=== PATIENT | female | born 1985 | race Caucasian/White ===

== ENCOUNTER → 2016-11-26 | Outpatient (CLI) | payer OTHER ==
[~2016-11-26] MED LIST: AMIT150T PO; BUSP15TA47 PO; CELE-19 PO; CELE10TA PO; CELE20TA OR; CIPR-250 PO; CLAR1TAB2 PO; FLUT11IN INH; FOLI1TAB2 PO; GABA300C3 PO; HYDR10T PO; HYDR1TAB97 PO; HYDR25T PO; IBUP80TA PO; LATU1TAB PO; LEXA1TAB2 PO; LYRI150C PO; MAGN400T2 PO; MINI1CAP PO; MOTR200T40 PO; MULTCAP PO; NICO21DI5 TD; NORCOTAB PO; OCEA0.654; PERCOCET PO; PROT1TAB2 PO; RANI15TA PO; SUMA50TA2 PO; TOPI50TA4 PO; TRIL1TAB PO; TYLE325T5 PO; VITA100T2 PO; ZOFR20TA PO; no meds
--- NOTE | 2016-11-26 21:32 | REP ---
Clinical: Hip pain. Technique: AP view of the pelvis with neutral and frog lateral views of the right and left hip. Findings: Pelvis and bilateral hips appear normal and symmetric, respectively. No significant degenerative changes are appreciated. No overt arthritic changes. No acute fracture dislocation. Impression: Normal age appropriate pelvis and bilateral hip series Signed by Federico Hamlin MD 11/26/2016 09:24 P
== END ==
LOC: M RAD 14:11
PROVIDERS: ATTEND Nurse Practitioner Family
DX: M47.816 Spondylosis without myelopathy or radiculopathy, lumbar region (principal)

== ENCOUNTER → 2016-11-26 | Outpatient (CLI) | payer OTHER ==
--- NOTE | 2016-11-26 21:42 | REP ---
Clinical: Acute shortness of breath . Comparison: 08/28/2014 . Technique: PA and lateral. Findings: The mediastinum and cardiac silhouette are normal. The lung downey are clear and without acute consolidation, effusion, or pneumothorax. The skeletal structures are intact and normal. Impression: 1. No acute cardiopulmonary process. Signed by Federico Hamlin MD 11/26/2016 09:34 P
== END ==
LOC: M RAD 14:16
DX: R06.02 Shortness of breath (principal)

== ENCOUNTER → 2016-12-02 | Outpatient (CLI) | payer OTHER ==
[~2016-12-02] MED LIST changes: +HYDR-3713 PO; -HYDR1TAB97 PO; -MOTR200T40 PO; +MOTR200T44 PO
--- NOTE | 2016-12-17 01:46 | ECWPNPC ---
PATIENT NAME: NATALIE REMY : 1985 GENDER: FEMALE VISIT DATE: 12/02/2016 DISCHARGE DATE: 12/02/16 1138 VISIT LOCKED DATE TIME: PHYSICIAN: MICHAEL UPTON RESOURCE: MICHAEL UPTON REASON FOR APPOINTMENT 1. BACK HISTORY OF PRESENT ILLNESS HISTORY OF PRESENT ILLNESS: PAIN THE PATIENT DESCRIBES THE PAIN... FALL RISK SCREENING: SCREENING :NO FALLS IN THE PAST YEAR TODAY'S VISIT: NOTES: RATES PAIN TODAY 8-9/10. REPORTS PAIN AREAS ARE ACROSS LOW BACK AND INTO BOTH LEGS TO LEVEL OF FEET. DESCRIBES PAIN CONSTANT, SHARP, STABBING, ACHING THROBBING AND SHOOTING. [facility] MENTAL HEALTH PROVIDER INCREASED GABAPENTIN AND ALSO STARTED ON CYMBALTA. HAD NUMBNESS INTO FOOT AND LOWER BACK. . CURRENT MEDICATIONS TAKING RANITIDINE HCL 150 MG CAPSULE 1 CAPSULE ORALLY TWICE A DAY TAKING LATUDA 120 MG TABLET ORALLY DAILY TAKING VENTOLIN HFA 108 (90 BASE) MCG/ACT AEROSOL SOLUTION 2 PUFFS NEEDED INHALATION EVERY 4 HRS TAKING TOPAMAX 100 100MG TABLET ORAL TWICE DAILY TAKING MAXALT 10 MG TABLET 1 TABLET NEEDED ONE TIME ORALLY ONCE A DAY TAKING MOBIC 15 MG TABLET 1 TABLET ORALLY ONCE A DAY PRN FOR PAIN TAKING SOMA 350 MG TABLET 1 TABLET NEEDED ORALLY NEEDED BEFORE BEDTIME FOR SPASMS AND PAIN MDD=1 TAKING GABAPENTIN 800 MG TABLET 1 CAPSULE ORALLY FOUR TIMES A DAY TAKING CYMBALTA 30 MG CAPSULE DELAYED RELEASE PARTICLES 1 CAPSULE ORALLY DAILY NOT-TAKING TRILEPTAL 600 MG TABLET ORALLY TWICE A DAY NOT-TAKING SUMATRIPTAN SUCCINATE 50 MG TABLET 1 TABLET NEEDED ORALLY TWICE A DAY NOT-TAKING CELEXA 10 MG TABLET 1 TABLET ORALLY ONCE A DAY NOT-TAKING BUSPIRONE HCL 30 MG TABLET 1 TABLET ORALLY TWICE A DAY, NOTES: 05/22/16 AT 0100 NOT-TAKING WELLBUTRIN 75 MG TABLET 200 MG ORALLY DAILY NOT-TAKING IBUPROFEN 800 MG TABLET 1 TABLET ORALLY WITH FOOD THREE TIMES A DAY NOT-TAKING OMEPRAZOLE 20 MG CAPSULE DELAYED RELEASE ORALLY ONCE A DAY, NOTES: 05/22/16 AT 0100 NOT-TAKING NAPROSYN 250 MG TABLET 1 TABLET ORALLY TWICE A DAY MEDICATION LIST REVIEWED AND RECONCILED WITH THE PATIENT PAST MEDICAL HISTORY FIBROMYALGIA BIPOLAR HIGH CHOLESTEROL VIT D DEFICIENCY MIGRANE GERD SINUSITIS HEMORRHOIDS ALLERGIES LATEX: HIVESA IV CONTRAST DYE: HIVES: ALLERGY STRAWBERRIES: THROAT CLOSES: ALLERGY PINEAPPLE: THROAT CLOSES: ALLERGY SOCIAL HISTORY GENERAL: TOBACCO USE ARE YOU A:NONSMOKER LEARNING BARRIERS / SPECIAL NEEDS ORIENTED TO PLAN OF CARE: PATIENT, PAIN MANAGEMENT PATIENT, ORIENTED TO PLAN OF CARE: PATIENT, PAIN MANAGEMENT PATIENT. NEW PATIENT PAIN DIARY TODAY'S VISITNOTES FROM 0-10, WHAT LEVEL IS YOUR PAIN TODAY?0 PAIN CLINIC PFS, CLERGY, PUBLIC HEALTH REFERRALS PFS REFERRAL NEEDED?NO CLERGY REFERRAL NEEDED?NO PUBLIC HEALTH REFERRAL NEEDED?NO WAS THE PROVIDER NOTIFIED OF ANY PERTINENT INFO?NO PFS REFERRAL NEEDED?NO CLERGY REFERRAL NEEDED?NO PUBLIC HEALTH REFERRAL NEEDED?NO WAS THE PROVIDER NOTIFIED OF ANY PERTINENT INFO?NO REVIEW OF SYSTEMS CONSTITUTIONAL: ANY CHANGE IN YOUR MEDICAL CONDITION? NO . CHILLS NO . FEVER NO . INFECTION: DO YOU HAVE NEW INFECTIONS? NO . DO YOU HAVE HISTORY OF MRSA? NO . MUSCULOSKELETAL: ANY NEW PATTERNS OF PAIN OR NUMBNESS? YES . GASTROENTEROLOGY: ANY NEW CHANGE IN BOWEL CONTROL? NO . GENITOURINARY: ANY NEW CHANGE IN BLADDER CONTROL? NO . IS THERE A CHANCE YOU COULD BE ? NO . HEMATOLOGY/LYMPH: DO YOU TAKE ANY BLOOD THINNERS? (FOR EXAMPLE- COUMADIN, PLAVIX, AGGRENOX, PLATEL, PRADAXA, OR XARELTO) NO . WHEN WAS YOUR LAST DOSE? DATE: TIME: . NEUROLOGY: HAVE YOU FALLEN IN THE PAST 6 MONTHS? NO . ANY NEW EXTREMITY NUMBNESS OR WEAKNESS? NO . CARDIOLOGY: DO YOU HAVE A PACEMAKER OR DEFIBRILLATOR? NO . RESPIRATORY: HAVE YOU BEEN SICK IN THE PAST WEEK? NO . FEVER NO . FLU LIKE SYMPTOMS? NO . COUGH NO . INTEGUMENTARY: DO YOU HAVE ANY RASHES OR OPEN SORES? NO . ALLERGIC/IMMUNO: ARE YOU ALLERGIC TO SHELLFISH OR IV DYE? NO . ANY NEW ALLERGIES? NO . PSYCHIATRIC: DO YOU HAVE THOUGHTS OF HURTING YOURSELF OR SOMEONE ELSE? NO . ARE YOU ABUSED, NEGLECTED, OR IN AN UNSAFE ENVIRONMENT? NO . ENDOCRINOLOGY: ARE YOU DIABETIC? NO . OTHER: DO YOU NEED ANY PRESCRIPTIONS? NO . IF YES, PLEASE LIST: ____ . ANY NEW PROBLEMS WITH YOUR MEDICATIONS? NO . WHEN DID YOU LAST EAT? ____ . WHEN DID YOU LAST DRINK? ____ . WHAT DID YOU LAST DRINK? ____ . NAME OF PERSON DRIVING YOU HOME? ____ . DO YOU HAVE ANY OTHER QUESTIONS OR CONCERNS NO . REVIEWED BY: PROVIDER: MICHAEL SCHULER . VITAL SIGNS WT 200 LBS, HT 62 IN, BMI 36.58 INDEX, BP 121/68 MM HG, HR 70 /MIN, RR 16 /MIN, TEMP 98 F,2 F, OXYGEN SAT % 98, SAFE IN ENV? (Y/N) Y, REVIEWED BY: KG. EXAMINATION GENERAL EXAMINATION: PSYCHALERT , ORIENTED X 3 , APPROPRIATE MOOD AND AFFECT . LUNGS:CLEAR TO AUSCULTATION BILATERALLY. HEART:HEART RATE REGULAR. MUSCULOSKELETAL:EXQUISITE TENDERNESS OVER RIGHT SIJ. TENDER WITH PALPATION OVER LUMBAR SPINOUS PROCESSES. SLOW TO RISE TO STANDING POSITION. POSTURE UPRIGHT. GAIT SLOW, NONANTALGIC. ASSESSMENTS SACROILIITIS - M46.1 (PRIMARY) LUMBAR RADICULOPATHY - M54.16 TREATMENT SACROILIITIS REFILL GABAPENTIN TABLET, 800 MG, 1 CAPSULE, ORALLY, FOUR TIMES A DAY, 30 DAYS, 120, REFILLS 5 REFILL SOMA TABLET, 350 MG, 1 TABLET NEEDED, ORALLY NEEDED, BEFORE BEDTIME FOR SPASMS AND PAIN MDD=1, 30 DAYS, 30, REFILLS 2 CONTINUE MOBIC TABLET, 15 MG, 1 TABLET, ORALLY, ONCE A DAY PRN FOR PAIN, 30 DAYS, 30, REFILLS 2 INJECTION ANESTHETIC SACROILIAC JOINTMICHAEL UPTON 12/02/2016 11:27:13 AM > RIGHT PROCEDURE CODES FA211 ESTABILISHED PATIENT [facility] CHARGE FOLLOW UP AFTER INJECTION (REASON: CHECK AUTH FOR RIGHT SIJ INJECTION) ELECTRONICALLY SIGNED BY OTTONIEL WADDELL ON 12/16/2016 AT 02:45 PM EST DISCLAIMER : THIS IS A VISIT SUMMARY EXTRACTED FROM THE [employer] CHART. IT IS NOT A COPY OF THE [employer] PROGRESS NOTE. JEREL
== END ==
LOC: M PAIN 10:40
PROVIDERS: ATTEND Nurse Practitioner Family
DX: Z09 Encounter for follow-up examination after completed treatment for conditions other than malignant neoplasm (principal); M46.1 Sacroiliitis, not elsewhere classified; M54.16 Radiculopathy, lumbar region; M79.7 Fibromyalgia; E78.00 Pure hypercholesterolemia, unspecified; E55.9 Vitamin D deficiency, unspecified; G43.909 Migraine, unspecified, not intractable, without status migrainosus; K21.9 Gastro-esophageal reflux disease without esophagitis; F31.9 Bipolar disorder, unspecified; Z91.040 Latex allergy status; Z91.041 Radiographic dye allergy status; Z91.018 Allergy to other foods; Z79.1 Long term (current) use of non-steroidal anti-inflammatories (NSAID); Z79.891 Long term (current) use of opiate analgesic; Z79.899 Other long term (current) drug therapy

== ENCOUNTER → 2016-12-12 | Outpatient (CLI) | payer OTHER ==
[~2016-12-12] MED LIST changes: +BUPIVACAINE HCL 0.25% 30 ML VIAL As Ordered ONE; +LIDOCAINE 1% SDV INJ 30 ML VIAL As Ordered ONE; +TRIAMCINOLONE ACETONIDE SUSP 40 MG/ML VIAL (J3301) As Ordered ONE; +diazePAM 5 MG TAB As Ordered ONE; +oxyCODONE 5MG TAB As Ordered ONE
--- NOTE | 2016-12-12 16:47 | REP ---
SI joint series: Three views limited study: History: Right SI joint injection for pain. 7 seconds of fluoroscopy time is reported. Findings: A sequence of three fluoroscopically obtained intraprocedural spot radiographs of the right SI joint document needle position associated with SI joint injection procedure. Signed by Benjamín Brown MD 12/12/2016 05:04 P
--- NOTE | 2016-12-17 23:41 | ECWPNPC ---
PATIENT NAME: NATALIE REMY : 1985 GENDER: FEMALE VISIT DATE: 12/12/2016 DISCHARGE DATE: 12/12/16 1519 VISIT LOCKED DATE TIME: PHYSICIAN: KELLEY ASIF RESOURCE: KELLEY ASIF REASON FOR APPOINTMENT 1. SIJ HISTORY OF PRESENT ILLNESS HISTORY OF PRESENT ILLNESS: PAIN THE PATIENT DESCRIBES THE PAIN... FALL RISK SCREENING: SCREENING :NO FALLS IN THE PAST YEAR CURRENT MEDICATIONS TAKING RANITIDINE HCL 150 MG CAPSULE 1 CAPSULE ORALLY TWICE A DAY, NOTES: 12-12-16799 TAKING LATUDA 120 MG TABLET ORALLY DAILY, NOTES: 12-11-162099 TAKING VENTOLIN HFA 108 (90 BASE) MCG/ACT AEROSOL SOLUTION 2 PUFFS NEEDED INHALATION EVERY 4 HRS, NOTES: NONE TAKING TOPAMAX 100 100MG TABLET ORAL TWICE DAILY, NOTES: 12-12-16799 TAKING MAXALT 10 MG TABLET 1 TABLET NEEDED ONE TIME ORALLY ONCE A DAY, NOTES: 12-12-16799 TAKING CYMBALTA 30 MG CAPSULE DELAYED RELEASE PARTICLES 1 CAPSULE ORALLY DAILY, NOTES: 12-12-16799 TAKING GABAPENTIN 800 MG TABLET 1 CAPSULE ORALLY FOUR TIMES A DAY, NOTES: 12-12-16799 TAKING SOMA 350 MG TABLET 1 TABLET NEEDED ORALLY NEEDED BEFORE BEDTIME FOR SPASMS AND PAIN MDD=1, NOTES: 12-11-162099 TAKING MOBIC 15 MG TABLET 1 TABLET ORALLY ONCE A DAY PRN FOR PAIN, NOTES: 12-12-16799 TAKING LORATADINE 10 MG TABLET 1 TABLET ORALLY ONCE A DAY, NOTES: 12-11-162099 NOT-TAKING TRILEPTAL 600 MG TABLET ORALLY TWICE A DAY NOT-TAKING SUMATRIPTAN SUCCINATE 50 MG TABLET 1 TABLET NEEDED ORALLY TWICE A DAY NOT-TAKING CELEXA 10 MG TABLET 1 TABLET ORALLY ONCE A DAY NOT-TAKING BUSPIRONE HCL 30 MG TABLET 1 TABLET ORALLY TWICE A DAY, NOTES: 05/22/16 AT 0100 NOT-TAKING WELLBUTRIN 75 MG TABLET 200 MG ORALLY DAILY NOT-TAKING IBUPROFEN 800 MG TABLET 1 TABLET ORALLY WITH FOOD THREE TIMES A DAY NOT-TAKING OMEPRAZOLE 20 MG CAPSULE DELAYED RELEASE ORALLY ONCE A DAY, NOTES: 05/22/16 AT 0100 NOT-TAKING NAPROSYN 250 MG TABLET 1 TABLET ORALLY TWICE A DAY MEDICATION LIST REVIEWED AND RECONCILED WITH THE PATIENT PAST MEDICAL HISTORY FIBROMYALGIA BIPOLAR HIGH CHOLESTEROL VIT D DEFICIENCY MIGRANE GERD SINUSITIS HEMORRHOIDS ALLERGIES LATEX: HIVESA IV CONTRAST DYE: HIVES: ALLERGY STRAWBERRIES: THROAT CLOSES: ALLERGY PINEAPPLE: THROAT CLOSES: ALLERGY SOCIAL HISTORY GENERAL: TOBACCO USE ARE YOU A:NONSMOKER LEARNING BARRIERS / SPECIAL NEEDS ORIENTED TO PLAN OF CARE: PATIENT, PAIN MANAGEMENT PATIENT, ORIENTED TO PLAN OF CARE: PATIENT, PAIN MANAGEMENT PATIENT. NEW PATIENT PAIN DIARY TODAY'S VISITNOTES FROM 0-10, WHAT LEVEL IS YOUR PAIN TODAY?0 PAIN CLINIC PFS, CLERGY, PUBLIC HEALTH REFERRALS PFS REFERRAL NEEDED?NO CLERGY REFERRAL NEEDED?NO PUBLIC HEALTH REFERRAL NEEDED?NO WAS THE PROVIDER NOTIFIED OF ANY PERTINENT INFO?NO PFS REFERRAL NEEDED?NO CLERGY REFERRAL NEEDED?NO PUBLIC HEALTH REFERRAL NEEDED?NO WAS THE PROVIDER NOTIFIED OF ANY PERTINENT INFO?NO REVIEW OF SYSTEMS CONSTITUTIONAL: ANY CHANGE IN YOUR MEDICAL CONDITION? NO . CHILLS NO . FEVER NO . INFECTION: DO YOU HAVE NEW INFECTIONS? NO . DO YOU HAVE HISTORY OF MRSA? NO . MUSCULOSKELETAL: ANY NEW PATTERNS OF PAIN OR NUMBNESS? NO . GASTROENTEROLOGY: ANY NEW CHANGE IN BOWEL CONTROL? NO . GENITOURINARY: ANY NEW CHANGE IN BLADDER CONTROL? NO . IS THERE A CHANCE YOU COULD BE ? NO . HEMATOLOGY/LYMPH: DO YOU TAKE ANY BLOOD THINNERS? (FOR EXAMPLE- COUMADIN, PLAVIX, AGGRENOX, PLATEL, PRADAXA, OR XARELTO) NO . WHEN WAS YOUR LAST DOSE? DATE: TIME: . NEUROLOGY: HAVE YOU FALLEN IN THE PAST 6 MONTHS? NO . ANY NEW EXTREMITY NUMBNESS OR WEAKNESS? NO . CARDIOLOGY: DO YOU HAVE A PACEMAKER OR DEFIBRILLATOR? NO . RESPIRATORY: HAVE YOU BEEN SICK IN THE PAST WEEK? NO . FEVER NO . FLU LIKE SYMPTOMS? NO . COUGH NO . INTEGUMENTARY: DO YOU HAVE ANY RASHES OR OPEN SORES? NO . ALLERGIC/IMMUNO: ARE YOU ALLERGIC TO SHELLFISH OR IV DYE? YES, IV DYE . ANY NEW ALLERGIES? NO . PSYCHIATRIC: DO YOU HAVE THOUGHTS OF HURTING YOURSELF OR SOMEONE ELSE? NO . ARE YOU ABUSED, NEGLECTED, OR IN AN UNSAFE ENVIRONMENT? NO . ENDOCRINOLOGY: ARE YOU DIABETIC? NO . OTHER: DO YOU NEED ANY PRESCRIPTIONS? NO . IF YES, PLEASE LIST: ____ . ANY NEW PROBLEMS WITH YOUR MEDICATIONS? NO . WHEN DID YOU LAST EAT? 12-11-16 PM . WHEN DID YOU LAST DRINK? 12-12-16 0700 . WHAT DID YOU LAST DRINK? SUKH GONSALES . NAME OF PERSON DRIVING YOU HOME? AGUSTIN SPRINGER . DO YOU HAVE ANY OTHER QUESTIONS OR CONCERNS NO . REVIEWED BY: PROVIDER: . VITAL SIGNS WT 190 LBS, HT 62 IN, BMI 34.75 INDEX, BP 122/78 MM HG, HR 69 /MIN, RR 16 /MIN, TEMP 97.7 F, OXYGEN SAT % 98, NA INITIALS TL 1311, REVIEWED BY: CM. ASSESSMENTS SACROILIITIS, NOT ELSEWHERE CLASSIFIED - M46.1 (PRIMARY) PROCEDURES PN SI PRE PROCEDURE DIAGNOSIS SACROILIITIS, SACROILIAC JOINT DYSFUNCTION POST PROCEDURE DIAGNOSIS SACROILIITIS, SACROILIAC JOINT DYSFUNCTION PROCEDURE RIGHT SACROILIAC JOINT BLOCK SURGEON DR. KELLEY ASIF WIND TECHNICIAN NONE ANESTHESIA LOCAL PRE PROCEDURE NOTE PATIENT WITH HISTORY OF CHRONIC LOW BACK PAIN. I EVALUATED THE PATIENT AND REVIEWED THE CHART. I WENT OVER THE RISKS, ALTERNATIVES, AND BENEFITS ASSOCIATED WITH THIS PROCEDURE. THE PATIENT WOULD LIKE TO PROCEED AND GAVE CONSENT TO PERFORM THE PROCEDURE. THE PATIENT DENIES UNEXPLAINABLE WEIGHT LOSS, FEVER, CHILLS, OR NEW CHANGES IN URINARY OR BOWEL CONTROL DESCRIPTION OF PROCEDURE THE PATIENT WAS BROUGHT TO THE PROCEDURE ROOM AND PLACED IN THE PRONE POSITION. THE LUMBOSACRAL AREA WAS CLEANED WITH CHLORAPREP SOLUTION AND DRAPED ASEPTICALLY. THE PROCEDURE WAS DONE UNDER STERILE CONDITIONS. I CHECKED LATERALITY AND THE LEVEL WHERE THE PROCEDURE WAS GOING TO BE PERFORMED WITH THE PATIENT AND THE SUPPORTING STAFF AT THE MOMENT OF THE TIME OUT IN THE PROCEDURE ROOM. UNDER FLUOROSCOPIC GUIDANCE, TARGET POINT WAS SELECTED AT THE LOWER BORDER OF THE RIGHT SACROILIAC JOINT. TARGET POINT WAS SELECTED AFTER MEDIAL ROTATION AND TILT OF THE MAGNIFIER OF THE C-ARM. LIDOCAINE WAS USED TO NUMB THE SKIN AND SUBCUTANEOUS TISSUE BELOW IT. A SPINAL NEEDLE, 22-GAUGE, WAS ADVANCED UNDER FLUOROSCOPIC GUIDANCE AND FOLLOWING PATIENT FEEDBACK UNTIL THE TARGET AREA WAS TOUCHED. THE POSITION OF THE NEEDLE WAS VERIFIED WITH AP AND LATERAL VIEWS. AFTER PROPER POSITION OF THE NEEDLE WAS ACHIEVED, ISOVUE M DYE 30%, 0.25 ML, WAS INJECTED SHOWING SPREAD OF THE DYE. THEN, A SOLUTION OF 20 MG OF KENALOG WAS INJECTED IN RIGHT JOINT WITH 3 ML OF BUPIVACAINE 0.125%. THERE WAS NO EVIDENCE OF BLOOD, PARESTHESIA OR CEREBROSPINAL FLUID DURING THE PROCEDURE. THE PATIENT WAS SENT TO THE RECOVERY ROOM. THE PATIENT WAS MOVING THE EXTREMITIES AND DOING WELL. THERE WAS NO COMPLICATION DURING THE PROCEDURE. FLUOROSCOPY TIME WAS 7 SECONDS POST PROCEDURE NOTE THE PATIENT WILL BE SEEN IN A FOLLOW UP IN THE NEXT FEW WEEKS. INSTRUCTIONS WERE GIVEN, QUESTIONS WERE ANSWERED, AND THE PATIENT EXPRESSED UNDERSTANDING AND AGREED WITH THE PLAN. I, ALDO PIERSON, DOCUMENTED THE ABOVE INFORMATION ACTING A SCRIBE FOR DR. ASIF. I, DR. ASIF, HAVE REVIEWED THE ABOVE DOCUMENT, SCRIBED BY ALDO PIERSON, AND I VERIFY THAT IT IS [facility]NOST[facility] FLUORO GUIDANCE (PAIN)[id number] PROCEDURE CODES 13526 INJECT SACROILIAC JOINT 6045F RADXPS IN END [id number] PXD FOLLOW UP 3 WEEKS ELECTRONICALLY SIGNED BY KELLEY ASIF MD ON 12/17/2016 AT 10:12 PM EST DISCLAIMER : THIS IS A VISIT SUMMARY EXTRACTED FROM THE [employer] CHART. IT IS NOT A COPY OF THE [employer] PROGRESS NOTE. MTDD
== END ==
LOC: M PAIN 13:20
PROVIDERS: ATTEND Anesthesiology
DX: M46.1 Sacroiliitis, not elsewhere classified (principal); G89.29 Other chronic pain; M79.7 Fibromyalgia; Z79.1 Long term (current) use of non-steroidal anti-inflammatories (NSAID); Z79.899 Other long term (current) drug therapy; Z91.018 Allergy to other foods; Z91.041 Radiographic dye allergy status; Z91.040 Latex allergy status
CPT/HCPCS: G0260; J3301

== ENCOUNTER 2016-12-16 20:25 | Emergency (ER) | payer OTHER ==
[~2016-12-16 20:25] MED LIST changes: -BUPIVACAINE HCL 0.25% 30 ML VIAL As Ordered ONE; -LIDOCAINE 1% SDV INJ 30 ML VIAL As Ordered ONE; -TRIAMCINOLONE ACETONIDE SUSP 40 MG/ML VIAL (J3301) As Ordered ONE; -diazePAM 5 MG TAB As Ordered ONE; -oxyCODONE 5MG TAB As Ordered ONE
[2016-12-16] MEDS ORDERED: diazePAM 5 MG TAB As Ordered ONE (22:18)
[2016-12-16] MEDS ORDERED: HYDROmorphone HCL 1 MG/ML SYRINGE (J1170) As Ordered ONE (22:18)
--- NOTE | 2016-12-16 23:03 | EDDOCDS ---
Nurse's Notes [facility] Name: Ashley Rasheed Age: 31 yrs Sex: Female : 1985 Arrival Date: 12/16/2016 Time: 20:25 Bed PR2 / Private MD: Polly Alcantara ANP- Diagnosis: Low back pain-chronic Presentation: 12/16 20:29 Presenting complaint: Patient states: "I had a right SIJ injection on Thursday. Yesterday mb9 I was seen at [place] for the same thing and they gave me a shot of Toradol. I called pain management today and they told me to come here.". Adult Sepsis Screening: The patient does not have new or worsening altered mentation. Patient's respiratory rate is less than 22. Systolic blood pressure is greater than 100. Patient has a qSOFA score of 0- Negative Sepsis Screen. Suicide/Homicide risk assessment- the patient denies having any suicidal and/or homicidal ideations and does not present with any other emotional, behavioral or mental health complaints. 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 Transition of care: patient was not received from another setting of care. 20:29 Acuity: LISE Level 4 mb9 20:29 Method Of Arrival: Walkin/Carried/Asstd mb9 Triage Assessment: 20:35 General: Appears in no apparent distress, Behavior is appropriate for age, cooperative. mb9 Pain: Location: right lower back Pain currently is 9 out of 10 on a pain scale. Pain: Pain radiates to lateral aspect of right thigh. HIV screening NA for this visit Offered previously. Respiratory: Airway is patent Respiratory effort is even, unlabored. 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 gabapentin 800 mg oral tab 1 tab 4 times a day (Last dose: 12/16/2016 18:00) 2. Latuda 120 mg oral tab 1 tab once daily (Last dose: 12/15/2016) 3. ranitidine HCl 150 mg Oral tab 1 tab 2 times per day (Last dose: 12/16/2016) 4. Soma 350 mg oral tab (Last dose: 12/15/2016) 5. Topamax 100 mg Oral tab 1 tab 2 times per day (Last dose: 12/16/2016) 6. Maxalt 10 mg oral tab 1 tab for Migraine (Last dose: 12/16/2016) 7. triliptal 300 mg twice a day (Last dose: 12/16/2016) - PMHx: Migraines; Fibromyalgia; Arthritis; - PSHx: tarsal tunnel surgery; Hysterectomy; - Social history: Smoking status: Patient uses tobacco products, light tobacco smoker. No barriers to communication noted, The patient speaks fluent Chinese. - Family history: Not pertinent. - : The pt / caregiver states he / she is not on anticoagulants. Home medication list is obtained from the patient. - Exposure Risk Screening:: None identified. Screenin:59 Screening information is obtained from the patient. Fall risk: No risks identified. ko2 Assistance ADL's: requires no assistance with activities of daily living. Abuse/DV Screen: The patient / caregiver reports he/she is: not in a situation that causes fear, pain or injury. Nutritional screening: No deficits noted. Advance Directives: Currently, there is no health care proxy. There is no active DNR order. There is no living will. There is no Power of [employer] Commerce Consultant. home support is adequate. Assessment: 22:57 General: Appears in no apparent distress, Behavior is appropriate for age, cooperative. ko2 Pain: Location: right leg and lateral aspect of right thigh and buttocks and right lower back Pain currently is 5 out of 10 on a pain scale. Neurological: Level of Consciousness is awake, alert. Respiratory: Airway is patent Respiratory effort is even, unlabored. Derm: Skin is normal. Vital Signs: 20:26 BP 132 / 78; Pulse 81; Resp 18 S; Temp 97.8(O); Pulse Ox 100% on R/A; Weight 86.18 kg dd6 (R); Height 5 ft. 1 in. (154.94 cm) (R); 20:26 Body Mass Index 35.90 (86.18 kg, 154.94 cm) dd6 Vitals: 20:26 Log In Time: December 16, 2016 at 20:24. dd6 ED Course: 20:26 Patient visited by Lalo Kelley PCA. dd6 20:26 Polly Alcantara is Private Physician. dd6 20:26 Patient moved to Waiting dd6 20:27 Patient moved to Pre RCE dd6 20:31 Triage Initiated mb9 21:05 Patient moved to Triage 2 mdr 21:14 Efra Joe PA-C is PHCP. cc10 21:14 Timothy Freeman MD is Attending Physician. cc10 21:22 Patient visited by Yudith Tolbert RN. ko2 22:07 Patient visited by Efra Joe PA-C. cc10 22:07 Patient visited by Efra Joe PA-C. cc10 22:09 [facility]. cc10 22:12 Patient moved to PR2 / 26 mdr 22:52 [facility] Payment Agreement was scanned into [employer] and attached to record. gb 22:59 The patient / caregiver is instructed regarding the plan of care and ED course. ko2 22:59 No IV's were initiated during this patient's visit. No procedures done that require ko2 assistance. Administered Medications: 22:27 Drug: Dilaudid - HYDROmorphone 1 mg [hydromorphone 1 mg/mL injection syringe (1 mL)] mb9 Route: IM; Site: right gluteus; 22:27 Drug: Diazepam 5 mg [diazepam 5 mg tablet (1 tabs)] Route: PO; mb9 Order Results: There are currently no results for this order. Outcome: 22:09 Discharge ordered by Provider. cc10 22:59 Discharge Assessment: Patient awake, alert and oriented x 3. No cognitive and/or ko2 functional deficits noted. Patient verbalized understanding of disposition instructions. Patient awake and alert. patient administered narcotics - yes. Pt provided with safe discharge. The following High Risk Discharge criteria are identified: None. Discharged to home ambulatory. Condition: stable. Discharge instructions given to patient, Instructed on discharge instructions, follow up and referral plans. medication usage, Demonstrated understanding of instructions, medications, Pt was receptive of discharge instructions/ teaching. No special radiology studies were completed. Property sent home with patient. 23:01 Patient left the ED. ko2 Signatures: Janna Lr, Reg Reg gb Lalo Kelley, MARKETING OPERATIONS ANALYST MARKETING OPERATIONS ANALYST dd6 Efra Joe PA-C PA-C cc10 Yudith Tolbert RN RN ko2 Tam Kirk RN RN mb9 Isaiah Benitez, MARKETING OPERATIONS ANALYST MARKETING OPERATIONS ANALYST mdr MTDD
--- NOTE | 2016-12-16 23:03 | EDDOCDS ---
Physician Documentation [facility] Name: Ashley Rasheed Age: 31 yrs Sex: Female : 1985 Arrival Date: 12/16/2016 Time: 20:25 Bed PR Private MD: Polly Alcantara ANP- Disposition: 12/16/16 22:09 Discharged to Home/Self Care. Impression: Low back pain - chronic. - Condition is Stable. - Discharge Instructions: Chronic Back Pain. - Prescriptions for Valium 5 mg Oral Tablet - take 1 tablet by ORAL route every 8 hours As needed MDD: 3 tabs; 16 tablet. - Medication Reconciliation, Local Pharmacy Hours form. - Follow up: [facility] [place] [facility]; When: Call to arrange an appointment; Reason: Wound/Symptom Recheck, Recheck today's complaints, Continuance of care. - Problem is chronic. - Symptoms have improved. Historical: - Allergies: Latex; mri dye; Pineapples; Strawberries; - Home Meds: 1. gabapentin 800 mg oral tab 1 tab 4 times a day (Last dose: 12/16/2016 18:00) 2. Latuda 120 mg oral tab 1 tab once daily (Last dose: 12/15/2016) 3. ranitidine HCl 150 mg Oral tab 1 tab 2 times per day (Last dose: 12/16/2016) 4. Soma 350 mg oral tab (Last dose: 12/15/2016) 5. Topamax 100 mg Oral tab 1 tab 2 times per day (Last dose: 12/16/2016) 6. Maxalt 10 mg oral tab 1 tab for Migraine (Last dose: 12/16/2016) 7. triliptal 300 mg twice a day (Last dose: 12/16/2016) - PMHx: Migraines; Fibromyalgia; Arthritis; - PSHx: tarsal tunnel surgery; Hysterectomy; - Social history: Smoking status: Patient uses tobacco products, light tobacco smoker. No barriers to communication noted, The patient speaks fluent Thai. - Family history: Not pertinent. - : The pt / caregiver states he / she is not on anticoagulants. Home medication list is obtained from the patient. - Exposure Risk Screening:: None identified. 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 1 in. (154.94 cm) (R); 20:26 Body Mass Index 35.90 (86.18 kg, 154.94 cm) dd6 MDM: 22:08 Dilaudid - HYDROmorphone 1 mg IM once ordered. cc10 22:08 Diazepam 5 mg PO once; disp with patient please. ordered. cc10 22:34 Financial registration complete. gb 22:52 [facility] Payment Agreement was scanned into [employer] and attached to record. gb Administered Medications: 22:27 Drug: Dilaudid - HYDROmorphone 1 mg [hydromorphone 1 mg/mL injection syringe (1 mL)] mb9 Route: IM; Site: right gluteus; 22:27 Drug: Diazepam 5 mg [diazepam 5 mg tablet (1 tabs)] Route: PO; mb9 Signatures: Janna Lr, Reg Reg gb Efra Joe, PA-C PA-C cc10 Yudith Tolbert,RN RN ko2 Tam Kirk,ALE RN mb9 The chart was reviewed and I authenticate all verbal orders and agree with the evaluation and treatment provided.Attachments: 22:52 [facility] Payment Agreement gb MTDD
--- NOTE | 2016-12-19 00:02 | EDDOCDS ---
Nurse's Notes [facility] Name: Ashley Rasheed Age: 31 yrs Sex: Female : 1985 Arrival Date: 12/16/2016 Time: 20:25 Bed PR2 / Private MD: Polly Alcantara ANP- Diagnosis: Low back pain-chronic Presentation: 12/16 20:29 Presenting complaint: Patient states: "I had a right SIJ injection on Thursday. Yesterday mb9 [facility] for the same thing and they gave me a shot of Toradol. I called pain management today and they told me to come here.". Adult Sepsis Screening: The patient does not have new or worsening altered mentation. Patient's respiratory rate is less than 22. Systolic blood pressure is greater than 100. Patient has a qSOFA score of 0- Negative Sepsis Screen. Suicide/Homicide risk assessment- the patient denies having any suicidal and/or homicidal ideations and does not present with any other emotional, behavioral or mental health complaints. Status: Patient is not a service car driver or dependent. Transition of care: patient was not received from another setting of care. 20:29 Acuity: LISE Level 4 mb9 20:29 Method Of Arrival: Walkin/Carried/Asstd mb9 Triage Assessment: 20:35 General: Appears in no apparent distress, Behavior is appropriate for age, cooperative. mb9 Pain: Location: right lower back Pain currently is 9 out of 10 on a pain scale. Pain: Pain radiates to lateral aspect of right thigh. HIV screening NA for this visit Offered previously. Respiratory: Airway is patent Respiratory effort is even, unlabored. 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 gabapentin 800 mg oral tab 1 tab 4 times a day (Last dose: 12/16/2016 18:00) 2. Latuda 120 mg oral tab 1 tab once daily (Last dose: 12/15/2016) 3. ranitidine HCl 150 mg Oral tab 1 tab 2 times per day (Last dose: 12/16/2016) 4. Soma 350 mg oral tab (Last dose: 12/15/2016) 5. Topamax 100 mg Oral tab 1 tab 2 times per day (Last dose: 12/16/2016) 6. Maxalt 10 mg oral tab 1 tab for Migraine (Last dose: 12/16/2016) 7. triliptal 300 mg twice a day (Last dose: 12/16/2016) - PMHx: Migraines; Fibromyalgia; Arthritis; - PSHx: tarsal tunnel surgery; Hysterectomy; - Social history: Smoking status: Patient uses tobacco products, light tobacco smoker. No barriers to communication noted, The patient speaks fluent Turkmen. - Family history: Not pertinent. - : The pt / caregiver states he / she is not on anticoagulants. Home medication list is obtained from the patient. - Exposure Risk Screening:: None identified. Screenin:59 Screening information is obtained from the patient. Fall risk: No risks identified. ko2 Assistance ADL's: requires no assistance with activities of daily living. Abuse/DV Screen: The patient / caregiver reports he/she is: not in a situation that causes fear, pain or injury. Nutritional screening: No deficits noted. Advance Directives: Currently, there is no health care proxy. There is no active DNR order. There is no living will. There is no Power of Payroll Consultant. home support is adequate. Assessment: 22:57 General: Appears in no apparent distress, Behavior is appropriate for age, cooperative. ko2 Pain: Location: right leg and lateral aspect of right thigh and buttocks and right lower back Pain currently is 5 out of 10 on a pain scale. Neurological: Level of Consciousness is awake, alert. Respiratory: Airway is patent Respiratory effort is even, unlabored. Derm: Skin is normal. Vital Signs: 20:26 BP 132 / 78; Pulse 81; Resp 18 S; Temp 97.8(O); Pulse Ox 100% on R/A; Weight 86.18 kg dd6 (R); Height 5 ft. 1 in. (154.94 cm) (R); 20:26 Body Mass Index 35.90 (86.18 kg, 154.94 cm) dd6 Vitals: 20:26 Log In Time: December 16, 2016 at 20:24. dd6 ED Course: 20:26 Patient visited by Lalo Kelley PCA. dd6 20:26 Polly Alcantara is Private Physician. dd6 20:26 Patient moved to Waiting dd6 20:27 Patient moved to Pre RCE dd6 20:31 Triage Initiated mb9 21:05 Patient moved to Triage 2 mdr 21:14 Efra Joe PA-C is PHCP. cc10 21:14 Timothy Freeman MD is Attending Physician. cc10 21:22 Patient visited by Yudith Tolbert RN. ko2 22:07 Patient visited by Efra Joe PA-C. cc10 22:07 Patient visited by Efra Joe PA-C. cc10 22:09 [facility]. cc10 22:12 Patient moved to PR2 / 26 mdr 22:52 [facility] Payment Agreement was scanned into EventBoard and attached to record. gb 22:59 The patient / caregiver is instructed regarding the plan of care and ED course. ko2 22:59 No IV's were initiated during this patient's visit. No procedures done that require ko2 assistance. 12/17 02:27 T-Sheet-- Draft Copy was scanned into EventBoard and attached to record. hs2 Administered Medications: 12/16 22:27 Drug: Dilaudid - HYDROmorphone 1 mg [hydromorphone 1 mg/mL injection syringe (1 mL)] mb9 Route: IM; Site: right gluteus; 22:27 Drug: Diazepam 5 mg [diazepam 5 mg tablet (1 tabs)] Route: PO; mb9 Order Results: There are currently no results for this order. Outcome: 22:09 Discharge ordered by Provider. cc10 22:59 Discharge Assessment: Patient awake, alert and oriented x 3. No cognitive and/or ko2 functional deficits noted. Patient verbalized understanding of disposition instructions. Patient awake and alert. patient administered narcotics - yes. Pt provided with safe discharge. The following High Risk Discharge criteria are identified: None. Discharged to home ambulatory. Condition: stable. Discharge instructions given to patient, Instructed on discharge instructions, follow up and referral plans. medication usage, Demonstrated understanding of instructions, medications, Pt was receptive of discharge instructions/ teaching. No special radiology studies were completed. Property sent home with patient. 23:01 Patient left the ED. ko2 Signatures: Janna Lr, Reg Reg gb Lalo Kelley, SHIFT SUPERINTENDENT CAUSTIC CRESYLATE SHIFT SUPERINTENDENT CAUSTIC CRESYLATE dd6 Efra Joe PA-C PA-C cc10 Yudith Tolbert,RN RN ko2 Tam Kirk,RN RN mb9 Isaiah Benitez, SHIFT SUPERINTENDENT CAUSTIC CRESYLATE SHIFT SUPERINTENDENT CAUSTIC CRESYLATE mdr Alondra Fu, Reg Reg hs2 Chart Complete MTDD
--- NOTE | 2016-12-19 00:02 | EDDOCDS ---
Physician Documentation [facility] Name: Ashley Rasheed Age: 31 yrs Sex: Female : 1985 Arrival Date: 12/16/2016 Time: 20:25 Bed PR Private MD: Polly Alcantara ANP- Disposition: 12/16/16 22:09 Discharged to Home/Self Care. Impression: Low back pain - chronic. - Condition is Stable. - Discharge Instructions: Chronic Back Pain. - Prescriptions for Valium 5 mg Oral Tablet - take 1 tablet by ORAL route every 8 hours As needed MDD: 3 tabs; 16 tablet. - Medication Reconciliation, Local Pharmacy Hours form. - Follow up: [facility] [place] [facility]; When: Call to arrange an appointment; Reason: Wound/Symptom Recheck, Recheck today's complaints, Continuance of care. - Problem is chronic. - Symptoms have improved. Historical: - Allergies: Latex; mri dye; Pineapples; Strawberries; - Home Meds: 1. gabapentin 800 mg oral tab 1 tab 4 times a day (Last dose: 12/16/2016 18:00) 2. Latuda 120 mg oral tab 1 tab once daily (Last dose: 12/15/2016) 3. ranitidine HCl 150 mg Oral tab 1 tab 2 times per day (Last dose: 12/16/2016) 4. Soma 350 mg oral tab (Last dose: 12/15/2016) 5. Topamax 100 mg Oral tab 1 tab 2 times per day (Last dose: 12/16/2016) 6. Maxalt 10 mg oral tab 1 tab for Migraine (Last dose: 12/16/2016) 7. triliptal 300 mg twice a day (Last dose: 12/16/2016) - PMHx: Migraines; Fibromyalgia; Arthritis; - PSHx: tarsal tunnel surgery; Hysterectomy; - Social history: Smoking status: Patient uses tobacco products, light tobacco smoker. No barriers to communication noted, The patient speaks fluent Yoruba. - Family history: Not pertinent. - : The pt / caregiver states he / she is not on anticoagulants. Home medication list is obtained from the patient. - Exposure Risk Screening:: None identified. 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 1 in. (154.94 cm) (R); 20:26 Body Mass Index 35.90 (86.18 kg, 154.94 cm) dd6 MDM: 22:08 Dilaudid - HYDROmorphone 1 mg IM once ordered. cc10 22:08 Diazepam 5 mg PO once; disp with patient please. ordered. cc10 22:34 Financial registration complete. 22:52 [facility] Payment Agreement was scanned into [email or web address] and attached to record. gb 12/17 02:27 T-Sheet-- Draft Copy was scanned into [email or web address] and attached to record. hs2 Administered Medications: 12/16 22:27 Drug: Dilaudid - HYDROmorphone 1 mg [hydromorphone 1 mg/mL injection syringe (1 mL)] mb9 Route: IM; Site: right gluteus; 22:27 Drug: Diazepam 5 mg [diazepam 5 mg tablet (1 tabs)] Route: PO; mb9 Signatures: Janna Lr, Reg Reg gb Efra Joe PA-C PANadeenC cc10 Yudith Tolbert RN RN ko2 Tam Kirk RN RN mb9 Alondra Fu, Reg Reg hs2 The chart was reviewed and I authenticate all verbal orders and agree with the evaluation and treatment provided.Attachments: 22:52 [facility] Payment Agreement gb 12/17 02:27 T-Sheet-- Draft Copy hs2 Chart Complete MTDD
--- NOTE | 2016-12-19 00:02 | EDDOCDS ---
Physician Documentation [facility] Name: Ashley Rasheed Age: 31 yrs Sex: Female : 1985 Arrival Date: 12/16/2016 Time: 20:25 Bed PR Private MD: Polly Alcantara ANP- Disposition: 12/16/16 22:09 Discharged to Home/Self Care. Impression: Low back pain - chronic. - Condition is Stable. - Discharge Instructions: Chronic Back Pain. - Prescriptions for Valium 5 mg Oral Tablet - take 1 tablet by ORAL route every 8 hours As needed MDD: 3 tabs; 16 tablet. - Medication Reconciliation, Local Pharmacy Hours form. - Follow up: [facility], [place] [facility]; When: Call to arrange an appointment; Reason: Wound/Symptom Recheck, Recheck today's complaints, Continuance of care. - Problem is chronic. - Symptoms have improved. Historical: - Allergies: Latex; mri dye; Pineapples; Strawberries; - Home Meds: 1. gabapentin 800 mg oral tab 1 tab 4 times a day (Last dose: 12/16/2016 18:00) 2. Latuda 120 mg oral tab 1 tab once daily (Last dose: 12/15/2016) 3. ranitidine HCl 150 mg Oral tab 1 tab 2 times per day (Last dose: 12/16/2016) 4. Soma 350 mg oral tab (Last dose: 12/15/2016) 5. Topamax 100 mg Oral tab 1 tab 2 times per day (Last dose: 12/16/2016) 6. Maxalt 10 mg oral tab 1 tab for Migraine (Last dose: 12/16/2016) 7. triliptal 300 mg twice a day (Last dose: 12/16/2016) - PMHx: Migraines; Fibromyalgia; Arthritis; - PSHx: tarsal tunnel surgery; Hysterectomy; - Social history: Smoking status: Patient uses tobacco products, light tobacco smoker. No barriers to communication noted, The patient speaks fluent Icelandic. - Family history: Not pertinent. - : The pt / caregiver states he / she is not on anticoagulants. Home medication list is obtained from the patient. - Exposure Risk Screening:: None identified. 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 1 in. (154.94 cm) (R); 20:26 Body Mass Index 35.90 (86.18 kg, 154.94 cm) dd6 MDM: 22:08 Dilaudid - HYDROmorphone 1 mg IM once ordered. cc10 22:08 Diazepam 5 mg PO once; disp with patient please. ordered. cc10 22:34 Financial registration complete. 22:52 [facility] Payment Agreement was scanned into [email or web address] and attached to record. gb 12/17 02:27 T-Sheet-- Draft Copy was scanned into [email or web address] and attached to record. hs2 Administered Medications: 12/16 22:27 Drug: Dilaudid - HYDROmorphone 1 mg [hydromorphone 1 mg/mL injection syringe (1 mL)] mb9 Route: IM; Site: right gluteus; 22:27 Drug: Diazepam 5 mg [diazepam 5 mg tablet (1 tabs)] Route: PO; mb9 Signatures: Janna Lr, Reg Reg gb Efra Joe PA-C PANadeenC cc10 Yudith Tolbert RN RN ko2 Tam Kirk RN RN mb9 Alondra Fu, Reg Reg hs2 The chart was reviewed and I authenticate all verbal orders and agree with the evaluation and treatment provided.Attachments: 22:52 [facility] Payment Agreement gb 12/17 02:27 T-Sheet-- Draft Copy hs2 Chart Complete MTDD
== END 2016-12-16 23:01 | disposition home or self-care (01) ==
LOC: M ED 20:25
DX: M54.5 Low back pain (principal); G43.909 Migraine, unspecified, not intractable, without status migrainosus; M79.7 Fibromyalgia; M12.9 Arthropathy, unspecified; F17.210 Nicotine dependence, cigarettes, uncomplicated; Z79.899 Other long term (current) drug therapy; Z91.041 Radiographic dye allergy status; Z91.040 Latex allergy status; Z91.018 Allergy to other foods
CPT/HCPCS: 96372; 99283; J1170

== ENCOUNTER → 2016-12-23 | Outpatient (RCR) | payer OTHER | LOC: M PT 11-26 12:55 | PROVIDERS: ATTEND Nurse Practitioner Family | DX: Z51.89 Encounter for other specified aftercare (principal); M72.2 Plantar fascial fibromatosis ==

== ENCOUNTER → 2016-12-25 | Outpatient (CLI) | payer OTHER ==
--- NOTE | 2016-12-26 23:55 | ECWPNPC ---
PATIENT NAME: NATALIE REMY : 1985 GENDER: FEMALE VISIT DATE: 12/25/2016 DISCHARGE DATE: 12/25/16 1036 VISIT LOCKED DATE TIME: PHYSICIAN: MICHAEL UPTON RESOURCE: MICHAEL UPTON REASON FOR APPOINTMENT 1. BACK PAIN HISTORY OF PRESENT ILLNESS HISTORY OF PRESENT ILLNESS: PAIN THE PATIENT DESCRIBES THE PAIN... FALL RISK SCREENING: SCREENING :NO FALLS IN THE PAST YEAR TODAY'S VISIT: NOTES: IS S/P RIGHT SIJ 12/12/16. REPORTS HAD NO PAIN RELIEF. WENT TO [place] ER WHERE WAS GIVEN TORADOL, THEN WENT TO [facility] ER WHERE THEY GAVE HER DILAUDID AND VALIUM.IS HAVING HAVING INCREASED PAIN AND SPASM INTO BACKS OF LEGS = WORST PAIN IN LEG IS ON RIGHT SIDE. HAS NOT NOTED ANY FOCAL WEAKNESS. NO LOSS OF BOWEL OR BLADDER. WAS SEEN AT ORTHOPEDICS - IS TO HAVE EMG ON RIGHT LE. RATES PAIN TODAY 9/10 AND STATES IS NOT ABLE TO FIND A COMFORTABLE POSITION. CURRENT MEDICATIONS TAKING RANITIDINE HCL 150 MG CAPSULE 1 CAPSULE ORALLY TWICE A DAY, NOTES: 12-12-16799 TAKING LATUDA 120 MG TABLET ORALLY DAILY, NOTES: 12-11-162099 TAKING VENTOLIN HFA 108 (90 BASE) MCG/ACT AEROSOL SOLUTION 2 PUFFS NEEDED INHALATION EVERY 4 HRS, NOTES: NONE TAKING TOPAMAX 100 100MG TABLET ORAL TWICE DAILY, NOTES: 12-12-16799 TAKING MAXALT 10 MG TABLET 1 TABLET NEEDED ONE TIME ORALLY ONCE A DAY, NOTES: 12-12-16799 TAKING CYMBALTA 30 MG CAPSULE DELAYED RELEASE PARTICLES 1 CAPSULE ORALLY DAILY, NOTES: 12-12-16799 TAKING GABAPENTIN 800 MG TABLET 1 CAPSULE ORALLY FOUR TIMES A DAY, NOTES: 12-12-16799 TAKING SOMA 350 MG TABLET 1 TABLET NEEDED ORALLY NEEDED BEFORE BEDTIME FOR SPASMS AND PAIN MDD=1, NOTES: 12-11-162099 TAKING MOBIC 15 MG TABLET 1 TABLET ORALLY ONCE A DAY PRN FOR PAIN, NOTES: 12-12-16799 TAKING LORATADINE 10 MG TABLET 1 TABLET ORALLY ONCE A DAY, NOTES: 12-11-162099 TAKING VALIUM 5 MG TABLET 1 TABLET NEEDED ORALLY 3X/DAY NEEDED TAKING INDERAL 20 MG 10MG TAB PO BID NOT-TAKING TRILEPTAL 600 MG TABLET ORALLY TWICE A DAY NOT-TAKING SUMATRIPTAN SUCCINATE 50 MG TABLET 1 TABLET NEEDED ORALLY TWICE A DAY NOT-TAKING CELEXA 10 MG TABLET 1 TABLET ORALLY ONCE A DAY NOT-TAKING BUSPIRONE HCL 30 MG TABLET 1 TABLET ORALLY TWICE A DAY, NOTES: 05/22/16 AT 0100 NOT-TAKING WELLBUTRIN 75 MG TABLET 200 MG ORALLY DAILY NOT-TAKING IBUPROFEN 800 MG TABLET 1 TABLET ORALLY WITH FOOD THREE TIMES A DAY NOT-TAKING OMEPRAZOLE 20 MG CAPSULE DELAYED RELEASE ORALLY ONCE A DAY, NOTES: 05/22/16 AT 0100 NOT-TAKING NAPROSYN 250 MG TABLET 1 TABLET ORALLY TWICE A DAY MEDICATION LIST REVIEWED AND RECONCILED WITH THE PATIENT PAST MEDICAL HISTORY FIBROMYALGIA BIPOLAR HIGH CHOLESTEROL VIT D DEFICIENCY MIGRANE GERD SINUSITIS HEMORRHOIDS ALLERGIES LATEX: HIVESA IV CONTRAST DYE: HIVES: ALLERGY STRAWBERRIES: THROAT CLOSES: ALLERGY PINEAPPLE: THROAT CLOSES: ALLERGY SOCIAL HISTORY GENERAL: TOBACCO USE ARE YOU A:NONSMOKER LEARNING BARRIERS / SPECIAL NEEDS ORIENTED TO PLAN OF CARE: PATIENT, PAIN MANAGEMENT PATIENT, ORIENTED TO PLAN OF CARE: PATIENT, PAIN MANAGEMENT PATIENT. NEW PATIENT PAIN DIARY TODAY'S VISITNOTES FROM 0-10, WHAT LEVEL IS YOUR PAIN TODAY?0 PAIN CLINIC PFS, CLERGY, PUBLIC HEALTH REFERRALS PFS REFERRAL NEEDED?NO CLERGY REFERRAL NEEDED?NO PUBLIC HEALTH REFERRAL NEEDED?NO WAS THE PROVIDER NOTIFIED OF ANY PERTINENT INFO?NO PFS REFERRAL NEEDED?NO CLERGY REFERRAL NEEDED?NO PUBLIC HEALTH REFERRAL NEEDED?NO WAS THE PROVIDER NOTIFIED OF ANY PERTINENT INFO?NO REVIEW OF SYSTEMS CONSTITUTIONAL: ANY CHANGE IN YOUR MEDICAL CONDITION? NO . CHILLS NO . FEVER NO . INFECTION: DO YOU HAVE NEW INFECTIONS? NO . DO YOU HAVE HISTORY OF MRSA? NO . MUSCULOSKELETAL: ANY NEW PATTERNS OF PAIN OR NUMBNESS? NO . GASTROENTEROLOGY: ANY NEW CHANGE IN BOWEL CONTROL? NO . GENITOURINARY: ANY NEW CHANGE IN BLADDER CONTROL? NO . IS THERE A CHANCE YOU COULD BE ? NO . HEMATOLOGY/LYMPH: DO YOU TAKE ANY BLOOD THINNERS? (FOR EXAMPLE- COUMADIN, PLAVIX, AGGRENOX, PLATEL, PRADAXA, OR XARELTO) NO . WHEN WAS YOUR LAST DOSE? DATE: TIME: . NEUROLOGY: HAVE YOU FALLEN IN THE PAST 6 MONTHS? NO . ANY NEW EXTREMITY NUMBNESS OR WEAKNESS? NO . CARDIOLOGY: DO YOU HAVE A PACEMAKER OR DEFIBRILLATOR? NO . RESPIRATORY: HAVE YOU BEEN SICK IN THE PAST WEEK? NO . FEVER NO . FLU LIKE SYMPTOMS? NO . COUGH NO . INTEGUMENTARY: DO YOU HAVE ANY RASHES OR OPEN SORES? NO . ALLERGIC/IMMUNO: ARE YOU ALLERGIC TO SHELLFISH OR IV DYE? YES CT DYE . ANY NEW ALLERGIES? NO . PSYCHIATRIC: DO YOU HAVE THOUGHTS OF HURTING YOURSELF OR SOMEONE ELSE? NO . ARE YOU ABUSED, NEGLECTED, OR IN AN UNSAFE ENVIRONMENT? NO . ENDOCRINOLOGY: ARE YOU DIABETIC? NO . OTHER: DO YOU NEED ANY PRESCRIPTIONS? NO . IF YES, PLEASE LIST: ____ . ANY NEW PROBLEMS WITH YOUR MEDICATIONS? NO . WHEN DID YOU LAST EAT? ____ . WHEN DID YOU LAST DRINK? ____ . WHAT DID YOU LAST DRINK? ____ . NAME OF PERSON DRIVING YOU HOME? ____ . DO YOU HAVE ANY OTHER QUESTIONS OR CONCERNS YES &QUOT;SINCE SHOTS THE PAIN WORSE-WENT TO ER&QUOT; RECEIVED VALIUM AND A SHOT THAT SEEMED TO EASE PAIN PER PT. STATES RIGHT LOWER BACK AND RIGHT HIP PAIN IS WORSE SINCE INJECTION 12/12. WAS SEEN AT [facility] ER AND STATES RECEIVED TORADOL. PAIN PERSISTED AND PT CALLED [facility]-INSTRUCTED TO GO TO [facility] ER. RECEIVED HYDROMORPHONE IM AND VALIUM PO.RECEIVED SCRIPT FOR VALIUM WHICH IS NOW GONE. STATES VALIUM DIMINISHED PAIN. . PSYCHOLOGY: ARE YOU RECEIVING COUNSELING? FOLLOWS CLOSELY WITH HER COUNSELOR AND PSYCHIATRIST . REVIEWED BY: PROVIDER: MICHAEL UPTON GREY GOODS TESTER . VITAL SIGNS WT 190 LBS, HT 62 IN, BMI 34.75 INDEX, BP 148/89 MM HG, HR 96 /MIN, RR 16 /MIN, TEMP 97.3 F, OXYGEN SAT % 99, NA INITIALS MP, REVIEWED BY: MLF. EXAMINATION GENERAL EXAMINATION: PSYCHALERT , ORIENTED X 3 , APPROPRIATE MOOD AND AFFECT . LUNGS:CLEAR TO AUSCULTATION BILATERALLY. HEART:HEART RATE REGULAR. MUSCULOSKELETAL:EXQUISITE TENDERNESS OVER RIGHT SIJ. TENDER WITH PALPATION OVER LUMBAR SPINOUS PROCESSES. SLOW TO RISE TO STANDING POSITION. POSTURE UPRIGHT. GAIT SLOW, NONANTALGIC. ASSESSMENTS SACROILIITIS - M46.1 (PRIMARY) LUMBAR RADICULOPATHY - M54.16 TREATMENT SACROILIITIS REFILL VALIUM TABLET, 5 MG, 1 TABLET NEEDED, ORALLY, 3X/DAY NEEDED, 30 DAYS, 30, REFILLS 0 START TIZANIDINE HCL TABLET, 4 MG, 1 TABLET NEEDED, ORALLY, THREE TIMES A DAY, 30 DAY(S), 90 TABLET, REFILLS 0 START PERCOCET TABLET, 5-325 MG, 1 TABLET NEEDED, ORALLY, EVERY 8 HRS PRN PAIN MDD=3, 30 DAY(S), 30, REFILLS 0 NOTES: WALK SHORT DISTANCES EVERY DAY. ALTERNATE ICE/HEAT TO LOW BACK. USE MEDS SPARINGLY. CONTINUE PHYSICAL THERAPY. CLINICAL NOTES: ISTOP REGISTRY REVIEWED AND DEMNOSTRATES COMPLLIANCE. BRINGS IN MEDICATIONS WHICH IS APPROPRIATE FOR WHAT WAS DISPENSED. RECENT URINE TOXICOLOGY REVIEWED. NO UNAUTHORIZED MEDICATIONS. NO ILLICIT SUBSTANCES AND PRESCRIBED MEDICATIONS WERE PRESENT. , REVIEWED WITH PATIENT THE POTENTIAL RISK OF INCREASED SEDATION, RESPIRATORY SUPPRESSION AND WITH THE COMBINATION OF BENZODIAZAPINE AND OPIOD MEDICATIONS. PATIENT STATES HE UNDERSTANDS THIS RISK AND WISHES TO CONTINUE WITH THERAPY. PROCEDURE CODES FA211 ESTABILISHED PATIENT [facility] CHARGE FOLLOW UP 3-4 WEEKS ELECTRONICALLY SIGNED BY OTTONIEL WADDLEL ON 12/26/2016 AT 02:20 PM EST DISCLAIMER : THIS IS A VISIT SUMMARY EXTRACTED FROM THE [employer] CHART. IT IS NOT A COPY OF THE [employer] PROGRESS NOTE. JEREL
== END ==
LOC: M PAIN 09:40
PROVIDERS: ATTEND Nurse Practitioner Family
DX: M46.1 Sacroiliitis, not elsewhere classified (principal); M54.16 Radiculopathy, lumbar region; M79.7 Fibromyalgia; F31.9 Bipolar disorder, unspecified; G43.909 Migraine, unspecified, not intractable, without status migrainosus; E55.9 Vitamin D deficiency, unspecified; Z79.899 Other long term (current) drug therapy; Z91.040 Latex allergy status; Z91.041 Radiographic dye allergy status; Z91.018 Allergy to other foods

== ENCOUNTER 2017-01-01 20:57 | Emergency (ER) | payer OTHER ==
[2017-01-01] MEDS ORDERED: METOCLOPRAMIDE INJ 10MG/2ML VIAL (J2765) As Ordered ONE (22:58)
[2017-01-01] MEDS ORDERED: dexameTHASONE 4 MG/ML 1ML VIAL (J1100) As Ordered ONE (22:58)
[2017-01-01] MEDS ORDERED: diphenhydrAMINE INJ 50MG/ML VIAL (J1200) As Ordered ONE (22:58)
[2017-01-01 23:23] LABS: CONTROL LINE HCG INT CTR LINE PRESENT
[2017-01-01 23:37] LABS: T UPTAKE 33 % (30-39); THYROXINE (T4) 11.9 UG/DL (4.5-12.0)
[2017-01-02] MEDS ORDERED: KETOROLAC 30 MG/ML VIAL (J1885) As Ordered ONE (00:18)
--- NOTE | 2017-01-02 01:13 | EDDOCDS ---
Physician Documentation [facility] Name: Ashley Rasheed Age: 31 yrs Sex: Female : 1985 Arrival Date: 01/01/2017 Time: 20:57 Bed TR7 Private MD: GRACE JAVED Disposition: 01/02/17 00:52 Discharged to Home/Self Care. Impression: Migraine, Galactorrhea. - Condition is Stable. - Discharge Instructions: Galactorrhea, Migraine Headache. - Medication Reconciliation, Local Pharmacy Hours form. - Follow up: GRACE JAVED; When: 1 - 2 days; Reason: Recheck today's complaints, Continuance of care. - Problem is new. - Symptoms have improved. - Notes: PLEASE FOLLOW UP WITH YOUR DOCTOR, RETURN TO THE ER IF THE SYMPTOMS WORSEN OR BECOME CONCERNING Historical: - Allergies: Latex; mri dye; Pineapples; Strawberries; - Home Meds: 1. gabapentin 800 mg Oral tab 1 tab 4 times a day 2. Latuda 120 mg oral tab 1 tab once daily 3. Maxalt 10 mg oral tab 1 tab for Migraine 4. ranitidine HCl 150 mg Oral tab 1 tab 2 times per day 5. Soma 350 mg Oral tab 6. Topamax 100 mg Oral tab 1 tab 2 times per day 7. triliptal 300 mg twice a day 8. Valium 5 mg Oral tab 3 times per day - PMHx: Arthritis; Fibromyalgia; Migraines; - PSHx: tarsal tunnel surgery; Hysterectomy; - Social history: Smoking status: Patient uses tobacco products, heavy tobacco smoker. No barriers to communication noted, The patient speaks fluent Indonesian. - Family history: Not pertinent. - : The pt / caregiver states he / she is not on anticoagulants. Home medication list is obtained from the patient. - Exposure Risk Screening:: None identified. 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 2 in. (157.48 cm); 01/02 00:37 Pain 7/10; kmg1 01:06 BP 110 / 77; Pulse 63; Resp 16; Temp 97.7; cz 01/01 20:59 Body Mass Index 36.58 (90.72 kg, 157.48 cm) elp MDM: 01/01 22:32 Metoclopramide 10 mg IV at 40 mg/hr once over 15 mins ordered. ck7 22:32 diphenhydrAMINE 50 mg IVP once ordered. ck7 22:32 Dexamethasone 8 mg IV at bolus once ordered. ck7 22:32 IV Saline Lock ordered. ck7 22:32 NS 0.9% 1000 ml IV at bolus once ordered. ck7 22:33 Thyroid Profile Ordered. EDMS 22:33 HCG,Serum Qualitative Ordered. EDMS 23:03 PROLACTIN Ordered. EDMS 23:15 Financial registration complete. pm4 23:27 HCG,Serum Qualitative Reviewed. ck7 23:28 [facility] Payment Agreement was scanned into [email or web address] and attached to record. pm4 23:42 Thyroid Profile Reviewed. ck7 23:42 HCG,Serum Qualitative Reviewed. ck7 23:53 ketorolac 30 mg IVP once ordered. ck7 Administered Medications: 23:05 Drug: Metoclopramide 10 mg [metoclopramide 5 mg/mL injection solution] Route: IV; Rate: cf2 40 mg/hr; Infused Over: 15 mins; Site: left antecubital; 01/02 01:07 Follow up: IV Status: Completed infusion cz 01/01 23:05 Drug: diphenhydrAMINE 50 mg [diphenhydramine 50 mg/mL injection solution (1 mL)] Route: cf2 IVP; Site: left antecubital; 23:05 Drug: Dexamethasone 8 mg [dexamethasone 4 mg/mL injection solution] Route: IV; Rate: cf2 bolus; Site: left antecubital; 23:06 Drug: NS 0.9% 1000 ml [sodium chloride 0.9 % intravenous solution] Route: IV; Rate: cf2 bolus; Site: left antecubital; 01/02 00:38 Follow up: IV Status: Completed infusion [facility] 01:06 Follow up: IV Status: Completed infusion cz 00:20 Drug: ketorolac 30 mg [ketorolac 30 mg/mL (1 mL) injection solution (1 mL)] Route: IVP; cf2 Site: left antecubital; 00:37 Follow up: Pain 06/01 Adult; Response: Pain is decreased kmg1 Signatures: Dispatcher [employer] EDMS Reji Silva, RN RN cz Yashira Mason RN RN rs3 Daniel Benson, RPA-C RPA-[id number] Vanesa ChinoRN RN cf2 Samir Millan, Reg Reg pm4 Pam Oneill RN kmg1 The chart was reviewed and I authenticate all verbal orders and agree with the evaluation and treatment provided.Corrections: (The following items were deleted from the chart) 01/01 23:03 22:33 PROLAC+LAB ordered. EDMS EDMS Attachments: 23:28 [facility] Payment Agreement pm4 MTDD
--- NOTE | 2017-01-02 01:13 | EDDOCDS ---
Nurse's Notes [facility] Name: Ashley Rasheed Age: 31 yrs Sex: Female : 1985 Arrival Date: 01/01/2017 Time: 20:57 Bed TR7 Private MD: GRACE JAVED Diagnosis: Migraine;Galactorrhea Presentation: 01/01 21:13 Presenting complaint: Patient states: bilateral breast tenderness and nipple discharge rs3 since yesterday. denies redness/swelling. migraine headache for 4 days. nausea/vomiting present. no fever. had partial hysterectomy 2014. This patient has no additional risk factors. Adult Sepsis Screening: The patient does not have new or worsening altered mentation. Patient's respiratory rate is less than 22. Systolic blood pressure is greater than 100. Patient has a qSOFA score of 0- Negative Sepsis Screen. Suicide/Homicide risk assessment- the patient denies having any suicidal and/or homicidal ideations and does not present with any other emotional, behavioral or mental health complaints. Status: Patient is not a sales service representative or dependent. Transition of care: patient was not received from another setting of care. 21:13 Acuity: LISE Level 3 rs3 21:13 Method Of Arrival: Walkin/Carried/Asstd rs3 Triage Assessment: 21:19 Headache History: This patient has a history of headaches and the character of this rs3 headache is like all previous headaches. General: Appears in no apparent distress. Pain: Pain currently is 9 out of 10 on a pain scale. Pain began gradually Also complains of nausea. HIV screening NA for this visit Offered previously. Neurological: Level of Consciousness is awake, alert. 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 gabapentin 800 mg Oral tab 1 tab 4 times a day 2. Latuda 120 mg oral tab 1 tab once daily 3. Maxalt 10 mg oral tab 1 tab for Migraine 4. ranitidine HCl 150 mg Oral tab 1 tab 2 times per day 5. Soma 350 mg Oral tab 6. Topamax 100 mg Oral tab 1 tab 2 times per day 7. triliptal 300 mg twice a day 8. Valium 5 mg Oral tab 3 times per day - PMHx: Arthritis; Fibromyalgia; Migraines; - PSHx: tarsal tunnel surgery; Hysterectomy; - Social history: Smoking status: Patient uses tobacco products, heavy tobacco smoker. No barriers to communication noted, The patient speaks fluent Sinhala. - Family history: Not pertinent. - : The pt / caregiver states he / she is not on anticoagulants. Home medication list is obtained from the patient. - Exposure Risk Screening:: None identified. Assessment: 23:07 General: Appears uncomfortable, Behavior is appropriate for age, cooperative, pleasant. kmg1 General: Patient reports breast pain bilaterally and describes what appears to be milky discharge. On exam breasts were soft, without nodules, and tender toward the sternum bilaterally. No milky discharge was appreciated. Pain: Location: head, right breast and left breast. Neurological: Level of Consciousness is awake, alert, Oriented to person, place, time, Reports headache. Vital Signs: 20:59 BP 134 / 92; Pulse 82; Resp 18; Temp 98.5; Pulse Ox 99% ; Weight 90.72 kg; Height 5 ft. elp 2 in. (157.48 cm); 01/02 00:37 Pain 7/10; kmg1 01:06 BP 110 / 77; Pulse 63; Resp 16; Temp 97.7; cz 02 20:59 Body Mass Index 36.58 (90.72 kg, 157.48 cm) el Vitals: 01/01 20:59 Log In Time: January 01, 2017 at 20:57. [facility] ED Course: 20:58 Patient visited by Concepción Gurrola PCA. elp 20:58 Patient moved to Waiting elp 20:59 GRACE JAVED is Private Physician. elp 20:59 Patient visited by Concepción Gurrola PCA. elp 20:59 Patient moved to Pre RCE elp 21:17 Triage Initiated rs3 21:53 Patient moved to Triage 1 cz 22:09 [facility] ck7 22:09 Eloy Acosta DO is Attending Physician. ck7 22:10 Patient visited by Daniel Benson RPA-C. ck7 22:25 Patient moved to I4 / M4 mdr 22:30 Vanesa Chino,ALE is Primary Nurse. cf2 22:30 Patient visited by Vanesa Chino RN. cf2 23:02 Thyroid Profile Sent. cf2 23:02 HCG,Serum Qualitative Sent. cf2 23:05 Patient visited by Vanesa Chino RN. cf2 23:06 Inserted saline lock: 20 gauge in right antecubital area. Labs drawn. (by ED staff). kmg1 Sent per order to lab. 23:12 Patient visited by Vanesa Chino RN. cf2 23:28 [facility] Payment Agreement was scanned into [employer] and attached to record. pm4 23:43 Patient visited by Vanesa Chino RN. cf2 01/02 00:16 Patient visited by Vanesa Chino RN. cf2 00:51 Patient visited by Daniel Benson RPA-C. ck7 00:51 GRACE JAVED is Referral Physician. ck7 01:09 Patient moved to [facility] Administered Medications: 01/01 23:05 Drug: Metoclopramide 10 mg [metoclopramide 5 mg/mL injection solution] Route: IV; Rate: cf2 40 mg/hr; Infused Over: 15 mins; Site: left antecubital; 01/02 01:07 Follow up: IV Status: Completed infusion cz 01/01 23:05 Drug: diphenhydrAMINE 50 mg [diphenhydramine 50 mg/mL injection solution (1 mL)] Route: cf2 IVP; Site: left antecubital; 23:05 Drug: Dexamethasone 8 mg [dexamethasone 4 mg/mL injection solution] Route: IV; Rate: cf2 bolus; Site: left antecubital; 23:06 Drug: NS 0.9% 1000 ml [sodium chloride 0.9 % intravenous solution] Route: IV; Rate: cf2 bolus; Site: left antecubital; 01/02 00:38 Follow up: IV Status: Completed infusion kmg1 01:06 Follow up: IV Status: Completed infusion cz 00:20 Drug: ketorolac 30 mg [ketorolac 30 mg/mL (1 mL) injection solution (1 mL)] Route: IVP; cf2 Site: left antecubital; 00:37 Follow up: Pain 06/01 Adult; Response: Pain is decreased kmg1 Order Results: Lab Order: Thyroid Profile; SPEC'M 01/01/17 22:59 Test: T UPTAKE; Value: 33; Range: 30-39; Units: %; Status: F Test: THYROXINE (T4); Value: 11.9; Range: 4.5-12.0; Units: UG/DL; Status: F Test: FREE THYROXINE INDEX; Value: 3.9; Range: 1.3-4.8; Units: %; Status: F Test: THYROID STIMULATING HORMONE; Value: 1.860; Range: 0.358-3.740; Units: uIU/ML; Status: F Lab Order: HCG,Serum Qualitative; SPEC'M 01/01/17 22:59 Test: HCG, SERUM QUALITATIVE; Value: NEGATIVE; Range: NEGATIVE; Status: F Lab Order: PROLACTIN; SPEC'M 01/01/17 22:59 Test: PROLACTIN; Units: NG/ML; Status: I Outcome: 00:52 Discharge ordered by Provider. ck7 01:07 Discharge Assessment: Patient awake, alert and oriented x 3. No cognitive and/or cz functional deficits noted. Patient verbalized understanding of disposition instructions. patient administered narcotics - no. The following High Risk Discharge criteria are identified: None. Discharged to home ambulatory, with significant other. Condition: stable. Discharge instructions given to patient, Instructed on discharge instructions, follow up and referral plans. Demonstrated understanding of instructions, Pt was receptive of discharge instructions/ teaching. No special radiology studies were completed. Property :Personal belongings accompany Pt. 01:12 Patient left the ED. cz Signatures: Pam Oneill, RN RN km Reji Silva RN RN cz Soosairaj, RosemaryRN RN rs3 Daniel Benson, RPA-C RPA-Cck7 Concepción Gurrola, SPARERIBS TRIMMER SPARERIBS TRIMMER ceferinop Isaiah Benitez, SPARERIBS TRIMMER SPARERIBS TRIMMER Vanesa Shelton,RN RN cf2 Samir Millan, Reg Reg pm4 Corrections: (The following items were deleted from the chart) 01/01 23:03 23:02 PROLAC+LAB sent. cf2 EDMS 23:13 23:07 General: Appears uncomfortable, Behavior is appropriate for age, cooperative, kmg1 pleasant, cf2 23:13 23:07 Pain: Location: head, right breast and left breast 2 km 23:13 23:07 Neurological: Level of Consciousness is awake, alert, Oriented to person, place, kmg1 time, Reports headache cf2 23:13 23:07 General: Patient reports breast pain bilaterally and describes what appears to be km milky discharge. On exam breasts were soft, without nodules, and tender toward the sternum bilaterally. No milky discharge was appreciated. 2 : 23:06 Inserted saline lock: 20 gauge in right antecubital area 2 [facility] [place] 23: 23:06 Labs drawn. (by ED staff). Sent per [place] to lab. [place] [id number] MTDD
[2017-01-02 09:36] LABS: PROLACTIN 21.2 NG/ML
--- NOTE | 2017-01-04 02:13 | EDDOCDS ---
Physician Documentation [facility] Name: Ashley Rasheed Age: 31 yrs Sex: Female : 1985 Arrival Date: 01/01/2017 Time: 20:57 Bed TR7 Private MD: GRACE JAVED Disposition: 01/02/17 00:52 Discharged to Home/Self Care. Impression: Migraine, Galactorrhea. - Condition is Stable. - Discharge Instructions: Galactorrhea, Migraine Headache. - Medication Reconciliation, Local Pharmacy Hours form. - Follow up: GRACE JAVED; When: 1 - 2 days; Reason: Recheck today's complaints, Continuance of care. - Problem is new. - Symptoms have improved. - Notes: PLEASE FOLLOW UP WITH YOUR DOCTOR, RETURN TO THE ER IF THE SYMPTOMS WORSEN OR BECOME CONCERNING Historical: - Allergies: Latex; mri dye; Pineapples; Strawberries; - Home Meds: 1. gabapentin 800 mg Oral tab 1 tab 4 times a day 2. Latuda 120 mg oral tab 1 tab once daily 3. Maxalt 10 mg oral tab 1 tab for Migraine 4. ranitidine HCl 150 mg Oral tab 1 tab 2 times per day 5. Soma 350 mg Oral tab 6. Topamax 100 mg Oral tab 1 tab 2 times per day 7. triliptal 300 mg twice a day 8. Valium 5 mg Oral tab 3 times per day - PMHx: Arthritis; Fibromyalgia; Migraines; - PSHx: tarsal tunnel surgery; Hysterectomy; - Social history: Smoking status: Patient uses tobacco products, heavy tobacco smoker. No barriers to communication noted, The patient speaks fluent Belarusian. - Family history: Not pertinent. - : The pt / caregiver states he / she is not on anticoagulants. Home medication list is obtained from the patient. - Exposure Risk Screening:: None identified. 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 2 in. (157.48 cm); 01/02 00:37 Pain 7/10; kmg1 01:06 BP 110 / 77; Pulse 63; Resp 16; Temp 97.7; cz 01/01 20:59 Body Mass Index 36.58 (90.72 kg, 157.48 cm) elp MDM: 01/01 22:32 Metoclopramide 10 mg IV at 40 mg/hr once over 15 mins ordered. ck7 22:32 diphenhydrAMINE 50 mg IVP once ordered. ck7 22:32 Dexamethasone 8 mg IV at bolus once ordered. ck7 22:32 IV Saline Lock ordered. ck7 22:32 NS 0.9% 1000 ml IV at bolus once ordered. ck7 22:33 Thyroid Profile Ordered. EDMS 22:33 HCG,Serum Qualitative Ordered. EDMS 23:03 PROLACTIN Ordered. EDMS 23:15 Financial registration complete. pm4 23:27 HCG,Serum Qualitative Reviewed. ck7 23:28 [facility] was scanned into [employer] and attached to record. pm4 23:42 Thyroid Profile Reviewed. ck7 23:42 HCG,Serum Qualitative Reviewed. ck7 23:53 ketorolac 30 mg IVP once ordered. ck7 01/02 12:33 T-Sheet-- Draft Copy was scanned into [employer] and attached to record. gb Administered Medications: 01/01 23:05 Drug: Metoclopramide 10 mg [metoclopramide 5 mg/mL injection solution] Route: IV; Rate: cf2 40 mg/hr; Infused Over: 15 mins; Site: left antecubital; 01/02 01:07 Follow up: IV Status: Completed infusion cz 01/01 23:05 Drug: diphenhydrAMINE 50 mg [diphenhydramine 50 mg/mL injection solution (1 mL)] Route: cf2 IVP; Site: left antecubital; 23:05 Drug: Dexamethasone 8 mg [dexamethasone 4 mg/mL injection solution] Route: IV; Rate: cf2 bolus; Site: left antecubital; 23:06 Drug: NS 0.9% 1000 ml [sodium chloride 0.9 % intravenous solution] Route: IV; Rate: cf2 bolus; Site: left antecubital; 01/02 00:38 Follow up: IV Status: Completed infusion km 01:06 Follow up: IV Status: Completed infusion cz 00:20 Drug: ketorolac 30 mg [ketorolac 30 mg/mL (1 mL) injection solution (1 mL)] Route: IVP; cf2 Site: left antecubital; 00:37 Follow up: Pain 06/01 Adult; Response: Pain is decreased kmg1 Signatures: Dispatcher [employer] EDMS Reji Silva, RN RN cz Janna Lr, Reg Reg gb Yashira Mason RN RN rs3 Daniel Benson, ANURADHA-C RPA-Cck7 Vanesa Chino RN RN cf2 Samir Millan, Reg Reg pm4 Pam Oneill RN kmg1 The chart was reviewed and I authenticate all verbal orders and agree with the evaluation and treatment provided.Corrections: (The following items were deleted from the chart) 01/01 23:03 22:33 PROLAC+LAB ordered. EDMS EDMS Attachments: 23:28 [facility] [place] pm4 01/02 12:33 T-Sheet-- Draft Copy gb Chart Complete MTDD
--- NOTE | 2017-01-04 02:13 | EDDOCDS ---
Physician Documentation [facility] Name: Ashley Rasheed Age: 31 yrs Sex: Female : 1985 Arrival Date: 01/01/2017 Time: 20:57 Bed TR7 Private MD: GRACE JAVED Disposition: 01/02/17 00:52 Discharged to Home/Self Care. Impression: Migraine, Galactorrhea. - Condition is Stable. - Discharge Instructions: Galactorrhea, Migraine Headache. - Medication Reconciliation, Local Pharmacy Hours form. - Follow up: GRACE JAVED; When: 1 - 2 days; Reason: Recheck today's complaints, Continuance of care. - Problem is new. - Symptoms have improved. - Notes: PLEASE FOLLOW UP WITH YOUR DOCTOR, RETURN TO THE ER IF THE SYMPTOMS WORSEN OR BECOME CONCERNING Historical: - Allergies: Latex; mri dye; Pineapples; Strawberries; - Home Meds: 1. gabapentin 800 mg Oral tab 1 tab 4 times a day 2. Latuda 120 mg oral tab 1 tab once daily 3. Maxalt 10 mg oral tab 1 tab for Migraine 4. ranitidine HCl 150 mg Oral tab 1 tab 2 times per day 5. Soma 350 mg Oral tab 6. Topamax 100 mg Oral tab 1 tab 2 times per day 7. triliptal 300 mg twice a day 8. Valium 5 mg Oral tab 3 times per day - PMHx: Arthritis; Fibromyalgia; Migraines; - PSHx: tarsal tunnel surgery; Hysterectomy; - Social history: Smoking status: Patient uses tobacco products, heavy tobacco smoker. No barriers to communication noted, The patient speaks fluent Macedonian. - Family history: Not pertinent. - : The pt / caregiver states he / she is not on anticoagulants. Home medication list is obtained from the patient. - Exposure Risk Screening:: None identified. 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 2 in. (157.48 cm); 01/02 00:37 Pain 7/10; kmg1 01:06 BP 110 / 77; Pulse 63; Resp 16; Temp 97.7; cz 01/01 20:59 Body Mass Index 36.58 (90.72 kg, 157.48 cm) elp MDM: 01/01 22:32 Metoclopramide 10 mg IV at 40 mg/hr once over 15 mins ordered. ck7 22:32 diphenhydrAMINE 50 mg IVP once ordered. ck7 22:32 Dexamethasone 8 mg IV at bolus once ordered. ck7 22:32 IV Saline Lock ordered. ck7 22:32 NS 0.9% 1000 ml IV at bolus once ordered. ck7 22:33 Thyroid Profile Ordered. EDMS 22:33 HCG,Serum Qualitative Ordered. EDMS 23:03 PROLACTIN Ordered. EDMS 23:15 Financial registration complete. pm4 23:27 HCG,Serum Qualitative Reviewed. ck7 23:28 [facility] [place] Payment Agreement was scanned into [employer] and attached to record. pm4 23:42 Thyroid Profile Reviewed. ck7 23:42 HCG,Serum Qualitative Reviewed. ck7 23:53 ketorolac 30 mg IVP once ordered. ck7 01/02 12:33 T-Sheet-- Draft Copy was scanned into [employer] and attached to record. gb Administered Medications: 01/01 23:05 Drug: Metoclopramide 10 mg [metoclopramide 5 mg/mL injection solution] Route: IV; Rate: cf2 40 mg/hr; Infused Over: 15 mins; Site: left antecubital; 01/02 01:07 Follow up: IV Status: Completed infusion cz 01/01 23:05 Drug: diphenhydrAMINE 50 mg [diphenhydramine 50 mg/mL injection solution (1 mL)] Route: cf2 IVP; Site: left antecubital; 23:05 Drug: Dexamethasone 8 mg [dexamethasone 4 mg/mL injection solution] Route: IV; Rate: cf2 bolus; Site: left antecubital; 23:06 Drug: NS 0.9% 1000 ml [sodium chloride 0.9 % intravenous solution] Route: IV; Rate: cf2 bolus; Site: left antecubital; 01/02 00:38 Follow up: IV Status: Completed infusion km 01:06 Follow up: IV Status: Completed infusion cz 00:20 Drug: ketorolac 30 mg [ketorolac 30 mg/mL (1 mL) injection solution (1 mL)] Route: IVP; cf2 Site: left antecubital; 00:37 Follow up: Pain 06/01 Adult; Response: Pain is decreased kmg1 Signatures: Dispatcher [employer] EDMS Reji Silva, RN RN cz Janna Lr, Reg Reg gb Yashira Mason RN RN rs3 Daniel Benson, ANURADHA-C RPA-Cck7 Vanesa Chino RN RN cf2 Samir Millan, Reg Reg pm4 Pam Oneill RN kmg1 The chart was reviewed and I authenticate all verbal orders and agree with the evaluation and treatment provided.Corrections: (The following items were deleted from the chart) 01/01 23:03 22:33 PROLAC+LAB ordered. EDMS EDMS Attachments: 23:28 [facility] [place] Payment Agreement pm4 01/02 12:33 T-Sheet-- Draft Copy gb Chart Complete MTDD
--- NOTE | 2017-01-04 02:13 | EDDOCDS ---
Nurse's Notes [facility] Name: Ashley Rasheed Age: 31 yrs Sex: Female : 1985 Arrival Date: 01/01/2017 Time: 20:57 Bed TR7 Private MD: GRACE JAVED Diagnosis: Migraine;Galactorrhea Presentation: 01/01 21:13 Presenting complaint: Patient states: bilateral breast tenderness and nipple discharge rs3 since yesterday. denies redness/swelling. migraine headache for 4 days. nausea/vomiting present. no fever. had partial hysterectomy 2014. This patient has no additional risk factors. Adult Sepsis Screening: The patient does not have new or worsening altered mentation. Patient's respiratory rate is less than 22. Systolic blood pressure is greater than 100. Patient has a qSOFA score of 0- Negative Sepsis Screen. Suicide/Homicide risk assessment- the patient denies having any suicidal and/or homicidal ideations and does not present with any other emotional, behavioral or mental health complaints. Status: Patient is not a employment services director or dependent. Transition of care: patient was not received from another setting of care. 21:13 Acuity: LISE Level 3 rs3 21:13 Method Of Arrival: Walkin/Carried/Asstd rs3 Triage Assessment: 21:19 Headache History: This patient has a history of headaches and the character of this rs3 headache is like all previous headaches. General: Appears in no apparent distress. Pain: Pain currently is 9 out of 10 on a pain scale. Pain began gradually Also complains of nausea. HIV screening NA for this visit Offered previously. Neurological: Level of Consciousness is awake, alert. 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 gabapentin 800 mg Oral tab 1 tab 4 times a day 2. Latuda 120 mg oral tab 1 tab once daily 3. Maxalt 10 mg oral tab 1 tab for Migraine 4. ranitidine HCl 150 mg Oral tab 1 tab 2 times per day 5. Soma 350 mg Oral tab 6. Topamax 100 mg Oral tab 1 tab 2 times per day 7. triliptal 300 mg twice a day 8. Valium 5 mg Oral tab 3 times per day - PMHx: Arthritis; Fibromyalgia; Migraines; - PSHx: tarsal tunnel surgery; Hysterectomy; - Social history: Smoking status: Patient uses tobacco products, heavy tobacco smoker. No barriers to communication noted, The patient speaks fluent Icelandic. - Family history: Not pertinent. - : The pt / caregiver states he / she is not on anticoagulants. Home medication list is obtained from the patient. - Exposure Risk Screening:: None identified. Assessment: 23:07 General: Appears uncomfortable, Behavior is appropriate for age, cooperative, pleasant. kmg1 General: Patient reports breast pain bilaterally and describes what appears to be milky discharge. On exam breasts were soft, without nodules, and tender toward the sternum bilaterally. No milky discharge was appreciated. Pain: Location: head, right breast and left breast. Neurological: Level of Consciousness is awake, alert, Oriented to person, place, time, Reports headache. Vital Signs: 20:59 BP 134 / 92; Pulse 82; Resp 18; Temp 98.5; Pulse Ox 99% ; Weight 90.72 kg; Height 5 ft. elp 2 in. (157.48 cm); 01/02 00:37 Pain 7/10; kmg1 01:06 BP 110 / 77; Pulse 63; Resp 16; Temp 97.7; cz 02 20:59 Body Mass Index 36.58 (90.72 kg, 157.48 cm) el Vitals: 01/01 20:59 Log In Time: January 01, 2017 at 20:57. [facility] ED Course: 20:58 Patient visited by Concepción Gurrola PCA. elp 20:58 Patient moved to Waiting elp 20:59 GRACE JAVED is Private Physician. elp 20:59 Patient visited by Concepción Gurrola PCA. elp 20:59 Patient moved to Pre RCE elp 21:17 Triage Initiated rs3 21:53 Patient moved to Triage 1 cz 22:09 Daniel Benson [facility]-C [facility] ck7 22:09 Eloy Acosta DO is Attending Physician. ck7 22:10 Patient visited by Daniel Benson RPA-C. ck7 22:25 Patient moved to I4 / M4 mdr 22:30 Vanesa Chino,ALE is Primary Nurse. cf2 22:30 Patient visited by Vanesa Chino RN. cf2 23:02 Thyroid Profile Sent. cf2 23:02 HCG,Serum Qualitative Sent. cf2 23:05 Patient visited by Vanesa Chino RN. cf2 23:06 Inserted saline lock: 20 gauge in right antecubital area. Labs drawn. (by ED staff). kmg1 Sent per order to lab. 23:12 Patient visited by Vanesa Chino RN. cf2 23:28 [facility] Payment Agreement was scanned into [employer] and attached to record. pm4 23:43 Patient visited by Vanesa Chino RN. cf2 01/02 00:16 Patient visited by Vanesa Chino RN. cf2 00:51 Patient visited by Daniel Benson RPA-C. ck7 00:51 GRACE JAVED is Referral Physician. ck7 01:09 Patient moved to [facility] 12:33 T-Sheet-- Draft Copy was scanned into [employer] and attached to record. gb Administered Medications: 01/01 23:05 Drug: Metoclopramide 10 mg [metoclopramide 5 mg/mL injection solution] Route: IV; Rate: cf2 40 mg/hr; Infused Over: 15 mins; Site: left antecubital; 01/02 01:07 Follow up: IV Status: Completed infusion cz 01/01 23:05 Drug: diphenhydrAMINE 50 mg [diphenhydramine 50 mg/mL injection solution (1 mL)] Route: cf2 IVP; Site: left antecubital; 23:05 Drug: Dexamethasone 8 mg [dexamethasone 4 mg/mL injection solution] Route: IV; Rate: cf2 bolus; Site: left antecubital; 23:06 Drug: NS 0.9% 1000 ml [sodium chloride 0.9 % intravenous solution] Route: IV; Rate: cf2 bolus; Site: left antecubital; 01/02 00:38 Follow up: IV Status: Completed infusion kmg1 01:06 Follow up: IV Status: Completed infusion cz 00:20 Drug: ketorolac 30 mg [ketorolac 30 mg/mL (1 mL) injection solution (1 mL)] Route: IVP; cf2 Site: left antecubital; 00:37 Follow up: Pain 06/01 Adult; Response: Pain is decreased kmg1 Order Results: Lab Order: Thyroid Profile; SPEC'M 01/01/17 22:59 Test: T UPTAKE; Value: 33; Range: 30-39; Units: %; Status: F Test: THYROXINE (T4); Value: 11.9; Range: 4.5-12.0; Units: UG/DL; Status: F Test: FREE THYROXINE INDEX; Value: 3.9; Range: 1.3-4.8; Units: %; Status: F Test: THYROID STIMULATING HORMONE; Value: 1.860; Range: 0.358-3.740; Units: uIU/ML; Status: F Lab Order: HCG,Serum Qualitative; SPEC'M 01/01/17 22:59 Test: HCG, SERUM QUALITATIVE; Value: NEGATIVE; Range: NEGATIVE; Status: F Lab Order: PROLACTIN; SPEC'M 01/01/17 22:59 Test: PROLACTIN; Value: 21.2; Units: NG/ML; Status: F Test Note: ; Non-: 2.8 - 29.2 ng/mL : 9.7 - 208.5 ng/mL Post Menopausal: 1.8 - 20.3 ng/mL Outcome: 00:52 Discharge ordered by Provider. ck7 01:07 Discharge Assessment: Patient awake, alert and oriented x 3. No cognitive and/or cz functional deficits noted. Patient verbalized understanding of disposition instructions. patient administered narcotics - no. The following High Risk Discharge criteria are identified: None. Discharged to home ambulatory, with significant other. Condition: stable. Discharge instructions given to patient, Instructed on discharge instructions, follow up and referral plans. Demonstrated understanding of instructions, Pt was receptive of discharge instructions/ teaching. No special radiology studies were completed. Property :Personal belongings accompany Pt. 01:12 Patient left the ED. cz Signatures: Pam Oneill, RN RN kmg1 Reji Silva RN RN cz Janna Lr, Reg Reg gb Yashira Mason RN RN rs3 Daniel Benson, RPA-C [id number] Concepción Gurrola, SUPERVISOR [employer] SUPERVISOR [employer] elp Isaiah Benitez, SUPERVISOR [employer] SUPERVISOR [employer] mdr Vanesa Chino,ALE RN cf2 Samir Millan, Reg Reg pm4 Corrections: (The following items were deleted from the chart) 01/01 23:03 23:02 PROLAC+LAB sent. 2 EDVA : 23:07 General: Appears uncomfortable, Behavior is appropriate for age, cooperative, kmg1 pleasant, [facility] 23:07 Pain: Location: head, right breast and left breast [place] [id number] : 23:07 Neurological: Level of Consciousness is awake, alert, Oriented to person, place, kmg1 time, Reports headache [facility] : 23:07 General: Patient reports breast pain bilaterally and describes what appears to be kmg1 milky discharge. On exam breasts were soft, without nodules, and tender toward the sternum bilaterally. No milky discharge was appreciated. [facility] : 23:06 Inserted saline lock: 20 gauge in right antecubital area [place] [id number] : 23:06 Labs drawn. (by ED staff). Sent per order to lab. [place] [id number] Chart Complete MTDD
== END 2017-01-02 01:12 | disposition home or self-care (01) ==
LOC: M ED 20:57
DX: G43.909 Migraine, unspecified, not intractable, without status migrainosus (principal); N64.3 Galactorrhea not associated with childbirth; M19.90 Unspecified osteoarthritis, unspecified site; M79.7 Fibromyalgia; Z79.899 Other long term (current) drug therapy; Z79.891 Long term (current) use of opiate analgesic; Z91.040 Latex allergy status; Z91.041 Radiographic dye allergy status; Z91.018 Allergy to other foods; F17.210 Nicotine dependence, cigarettes, uncomplicated
CPT/HCPCS: 36415; 84146; 84436; 84443; 84479; 84703; 96365; 96366; 96375; 99283; J1100; J1200; J1885; J2765

== ENCOUNTER → 2017-01-20 | Outpatient (CLI) | payer OTHER ==
[~2017-01-20] MED LIST changes: +METHACHOLINE KIT (J7674) INH ONE
--- NOTE | 2017-01-21 14:24 | METHCHAL ---
INTERPRETATION: The study was of excellent technical quality. Under protocol, methacholine was administered. At a dose of 2.5 mg (13.875 CDUs), a 52% decline in the FEV1 was noted. The PC20 of 0.30 is significant Flow rates returned to baseline post bronchodilator administration. IMPRESSION: Positive methacholine challenge study. MTDD
== END ==
LOC: M CARPUL 01-06 11:00
PROVIDERS: ATTEND Nurse Practitioner Adult Health
DX: R06.02 Shortness of breath (principal); R05 Cough

== ENCOUNTER → 2017-01-21 | Outpatient (CLI) | payer OTHER ==
[~2017-01-21] MED LIST changes: -METHACHOLINE KIT (J7674) INH ONE
--- NOTE | 2017-01-21 23:52 | ECWPNPC ---
PATIENT NAME: NATALIE ERMY : 1985 GENDER: FEMALE VISIT DATE: 01/21/2017 DISCHARGE DATE: 01/21/17 1135 VISIT LOCKED DATE TIME: PHYSICIAN: MICHAEL UPTON RESOURCE: MICHAEL UPTON REASON FOR APPOINTMENT 1. LOW BACK HISTORY OF PRESENT ILLNESS HISTORY OF PRESENT ILLNESS: PAIN THE PATIENT DESCRIBES THE PAIN... FALL RISK SCREENING: SCREENING :NO FALLS IN THE PAST YEAR TODAY'S VISIT: NOTES: RATES PAIN TODAY 7-8/10. DESCRIBES PAIN CONSTANT, ACHING AND THROBBING. PAIN IN CENTERED IN LOW BACK RIGHT SIDE. DOES RADIATE TO LEGS WHEN LAYING DOWN. HAVING INTENSE NUMBNESS LATERAL PORTION RIGHT FOOT.. CURRENT MEDICATIONS TAKING RANITIDINE HCL 150 MG CAPSULE 1 CAPSULE ORALLY TWICE A DAY TAKING LATUDA 80 MG TABLET ORALLY DAILY TAKING VENTOLIN HFA 108 (90 BASE) MCG/ACT AEROSOL SOLUTION 2 PUFFS NEEDED INHALATION EVERY 4 HRS TAKING TOPAMAX 100 100MG TABLET ORAL TWICE DAILY TAKING MAXALT 10 MG TABLET 1 TABLET NEEDED ONE TIME ORALLY ONCE A DAY TAKING GABAPENTIN 800 MG TABLET 1 CAPSULE ORALLY FOUR TIMES A DAY TAKING LORATADINE 10 MG TABLET 1 TABLET ORALLY ONCE A DAY TAKING INDERAL 20 MG 10MG TAB PO BID TAKING VALIUM 5 MG TABLET 1 TABLET NEEDED ORALLY 3X/DAY NEEDED TAKING TIZANIDINE HCL 4 MG TABLET 1 TABLET NEEDED ORALLY THREE TIMES A DAY TAKING PERCOCET 5-325 MG TABLET 1 TABLET NEEDED ORALLY EVERY 8 HRS PRN PAIN MDD=3 TAKING AMITRIPTYLINE HCL 10 MG TABLET 1 TABLET ORALLY THREE TIMES A DAY TAKING NAPROXEN 500 MG TABLET 1 TABLET NEEDED ORALLY TWICE A DAY NOT-TAKING CYMBALTA 30 MG CAPSULE DELAYED RELEASE PARTICLES 1 CAPSULE ORALLY DAILY, NOTES: 12-12-16 0800 NOT-TAKING SOMA 350 MG TABLET 1 TABLET NEEDED ORALLY NEEDED BEFORE BEDTIME FOR SPASMS AND PAIN MDD=1, NOTES: 12-11-16 2100 NOT-TAKING MOBIC 15 MG TABLET 1 TABLET ORALLY ONCE A DAY PRN FOR PAIN NOT-TAKING TRILEPTAL 600 MG TABLET ORALLY TWICE A DAY NOT-TAKING SUMATRIPTAN SUCCINATE 50 MG TABLET 1 TABLET NEEDED ORALLY TWICE A DAY NOT-TAKING CELEXA 10 MG TABLET 1 TABLET ORALLY ONCE A DAY NOT-TAKING BUSPIRONE HCL 30 MG TABLET 1 TABLET ORALLY TWICE A DAY, NOTES: 05/22/16 AT 0100 NOT-TAKING WELLBUTRIN 75 MG TABLET 200 MG ORALLY DAILY NOT-TAKING IBUPROFEN 800 MG TABLET 1 TABLET ORALLY WITH FOOD THREE TIMES A DAY NOT-TAKING OMEPRAZOLE 20 MG CAPSULE DELAYED RELEASE ORALLY ONCE A DAY, NOTES: 05/22/16 AT 0100 NOT-TAKING NAPROSYN 250 MG TABLET 1 TABLET ORALLY TWICE A DAY MEDICATION LIST REVIEWED AND RECONCILED WITH THE PATIENT PAST MEDICAL HISTORY FIBROMYALGIA BIPOLAR HIGH CHOLESTEROL VIT D DEFICIENCY MIGRANE GERD SINUSITIS HEMORRHOIDS ALLERGIES LATEX: HIVESA IV CONTRAST DYE: HIVES: ALLERGY STRAWBERRIES: THROAT CLOSES: ALLERGY PINEAPPLE: THROAT CLOSES: ALLERGY SOCIAL HISTORY GENERAL: TOBACCO USE ARE YOU A:CURRENT SMOKER LEARNING BARRIERS / SPECIAL NEEDS ORIENTED TO PLAN OF CARE: PATIENT, PAIN MANAGEMENT PATIENT, ORIENTED TO PLAN OF CARE: PATIENT, PAIN MANAGEMENT PATIENT. NEW PATIENT PAIN DIARY TODAY'S VISITNOTES FROM 0-10, WHAT LEVEL IS YOUR PAIN TODAY?0 PAIN CLINIC PFS, CLERGY, PUBLIC HEALTH REFERRALS PFS REFERRAL NEEDED?NO CLERGY REFERRAL NEEDED?NO PUBLIC HEALTH REFERRAL NEEDED?NO WAS THE PROVIDER NOTIFIED OF ANY PERTINENT INFO?NO PFS REFERRAL NEEDED?NO CLERGY REFERRAL NEEDED?NO PUBLIC HEALTH REFERRAL NEEDED?NO WAS THE PROVIDER NOTIFIED OF ANY PERTINENT INFO?NO REVIEW OF SYSTEMS CONSTITUTIONAL: ANY CHANGE IN YOUR MEDICAL CONDITION? NO . CHILLS NO . FEVER NO . INFECTION: DO YOU HAVE NEW INFECTIONS? NO . DO YOU HAVE HISTORY OF MRSA? NO . MUSCULOSKELETAL: ANY NEW PATTERNS OF PAIN OR NUMBNESS? NO . GASTROENTEROLOGY: ANY NEW CHANGE IN BOWEL CONTROL? NO . GENITOURINARY: ANY NEW CHANGE IN BLADDER CONTROL? NO . IS THERE A CHANCE YOU COULD BE ? NO . HEMATOLOGY/LYMPH: DO YOU TAKE ANY BLOOD THINNERS? (FOR EXAMPLE- COUMADIN, PLAVIX, AGGRENOX, PLATEL, PRADAXA, OR XARELTO) NO . WHEN WAS YOUR LAST DOSE? DATE: TIME: . NEUROLOGY: HAVE YOU FALLEN IN THE PAST 6 MONTHS? NO . ANY NEW EXTREMITY NUMBNESS OR WEAKNESS? NO . CARDIOLOGY: DO YOU HAVE A PACEMAKER OR DEFIBRILLATOR? NO . RESPIRATORY: HAVE YOU BEEN SICK IN THE PAST WEEK? NO . FEVER NO . FLU LIKE SYMPTOMS? NO . COUGH NO . INTEGUMENTARY: DO YOU HAVE ANY RASHES OR OPEN SORES? NO . ALLERGIC/IMMUNO: ARE YOU ALLERGIC TO SHELLFISH OR IV DYE? YES . ANY NEW ALLERGIES? NO . PSYCHIATRIC: DO YOU HAVE THOUGHTS OF HURTING YOURSELF OR SOMEONE ELSE? NO . ARE YOU ABUSED, NEGLECTED, OR IN AN UNSAFE ENVIRONMENT? NO . ENDOCRINOLOGY: ARE YOU DIABETIC? NO . OTHER: DO YOU NEED ANY PRESCRIPTIONS? NO . IF YES, PLEASE LIST: ____ . ANY NEW PROBLEMS WITH YOUR MEDICATIONS? NO . WHEN DID YOU LAST EAT? ____ . WHEN DID YOU LAST DRINK? ____ . WHAT DID YOU LAST DRINK? ____ . NAME OF PERSON DRIVING YOU HOME? ____ . DO YOU HAVE ANY OTHER QUESTIONS OR CONCERNS NO . REVIEWED BY: PROVIDER: MICHAEL SCHULER . VITAL SIGNS WT 213.6 LBS, HT 62 IN, BMI 39.06 INDEX, BP 113/73 MM HG, HR 80 /MIN, RR 16 /MIN, TEMP 98.1 F, OXYGEN SAT % 98%, NA INITIALS SC 11:03, REVIEWED BY: HARI. EXAMINATION GENERAL EXAMINATION: PSYCHALERT , ORIENTED X 3 , APPROPRIATE MOOD AND AFFECT . LUNGS:CLEAR TO AUSCULTATION BILATERALLY. HEART:HEART RATE REGULAR. MUSCULOSKELETAL:EXQUISITE TENDERNESS OVER RIGHT SIJ. AND RIGHT LUMBAR PARAVERTEBRAL MUSCLES. TRIGGER POINTS AND TIGHT FIBROUS BANDS IDENTIFIED OVER LUMBAR MUSCLES WITH RESTRICTION IN ROM WITH FLEXION/EXTENSION AND ROTATION NOTED.:, TENDER WITH PALPATION OVER LUMBAR SPINOUS PROCESSES. SLOW TO RISE TO STANDING POSITION. POSTURE UPRIGHT. GAIT SLOW, NONANTALGIC. ASSESSMENTS SACROILIITIS - M46.1 (PRIMARY) LUMBAR RADICULOPATHY - M54.16 LUMBAR DISC DISPLACEMENT WITHOUT MYELOPATHY - M51.26 TREATMENT SACROILIITIS REFILL VALIUM TABLET, 5 MG, 1 TABLET NEEDED, ORALLY, 3X/DAY NEEDED, 30 DAYS, 30, REFILLS 0 REFILL PERCOCET TABLET, 5-325 MG, 1 TABLET NEEDED, ORALLY, EVERY 8 HRS PRN PAIN MDD=3, 30 DAY(S), 30, REFILLS 0 NOTES: WALK VERY DAY - SHORT WALKS OK. DO EXERSISES AND STRETCHES. REFERRAL TO:ANA PAULA EGAN ([facility])NEUROLOGICAL SURGERY REASON:LOW BACK PAIN, LUMBAR DISC PROTRUSION, PARESTHESIS IN RIGHT FOOT. PROCEDURE CODES FA211 ESTABILISHED PATIENT [facility] CHARGE DISPOSITION & COMMUNICATION FOLLOW UP 1 MONTH ELECTRONICALLY SIGNED BY OTTONIEL WADDELL ON 01/21/2017 AT 03:58 PM EST DISCLAIMER : THIS IS A VISIT SUMMARY EXTRACTED FROM THE [employer] CHART. IT IS NOT A COPY OF THE [employer] PROGRESS NOTE. JEREL
== END ==
LOC: M PAIN 11:00
PROVIDERS: ATTEND Nurse Practitioner Family
DX: M46.1 Sacroiliitis, not elsewhere classified (principal); M54.16 Radiculopathy, lumbar region; M51.26 Other intervertebral disc displacement, lumbar region; M47.816 Spondylosis without myelopathy or radiculopathy, lumbar region; M47.817 Spondylosis without myelopathy or radiculopathy, lumbosacral region; G89.29 Other chronic pain; Z79.891 Long term (current) use of opiate analgesic; Z79.899 Other long term (current) drug therapy; Z91.040 Latex allergy status; Z91.018 Allergy to other foods

== ENCOUNTER → 2017-02-19 | Outpatient (CLI) | payer OTHER ==
[~2017-02-19] MED LIST changes: +GABA-282 PO; -GABA300C3 PO
--- NOTE | 2017-02-24 01:57 | ECWPNPC ---
PATIENT NAME: NATALIE REMY : 1985 GENDER: FEMALE VISIT DATE: 02/19/2017 DISCHARGE DATE: 02/19/17 1137 VISIT LOCKED DATE TIME: PHYSICIAN: MICHAEL UPTON RESOURCE: MICHAEL UPTON REASON FOR APPOINTMENT 1. BACK HISTORY OF PRESENT ILLNESS HISTORY OF PRESENT ILLNESS: PAIN THE PATIENT DESCRIBES THE PAIN... FALL RISK SCREENING: SCREENING :NO FALLS IN THE PAST YEAR TODAY'S VISIT: NOTES: RATES PAIN TODAY 8-9/10. DESCRIBES PAIN TODAY CONSTANT, ACHING, SHARP, STABBING, THROBBING, SORE. HAS RECENTLY BEEN DIAGNOSED WITH ASTHMA. HAS APPOINTMENT SCHEDULED WITH DR EGAN FOR MARCH 132016. CURRENT MEDICATIONS TAKING RANITIDINE HCL 150 MG CAPSULE 1 CAPSULE ORALLY TWICE A DAY TAKING LATUDA 60 MG TABLET 1 TAB ORALLY DAILY TAKING VENTOLIN HFA 108 (90 BASE) MCG/ACT AEROSOL SOLUTION 2 PUFFS NEEDED INHALATION EVERY 4 HRS TAKING TOPAMAX 100 100MG TABLET ORAL TWICE DAILY TAKING MAXALT 10 MG TABLET 1 TABLET NEEDED ONE TIME ORALLY ONCE A DAY TAKING GABAPENTIN 800 MG TABLET 1 CAPSULE ORALLY FOUR TIMES A DAY TAKING LORATADINE 10 MG TABLET 1 TABLET ORALLY ONCE A DAY TAKING INDERAL 20 MG 10MG TAB PO BID TAKING AMITRIPTYLINE HCL 10 MG TABLET 1 TABLET ORALLY THREE TIMES A DAY TAKING NAPROXEN 500 MG TABLET 1 TABLET NEEDED ORALLY TWICE A DAY TAKING VALIUM 5 MG TABLET 1 TABLET NEEDED ORALLY 3X/DAY NEEDED TAKING PERCOCET 5-325 MG TABLET 1 TABLET NEEDED ORALLY EVERY 8 HRS PRN PAIN MDD=3 TAKING TIZANIDINE HCL 4 MG TABLET 1 TABLET NEEDED ORALLY THREE TIMES A DAY NOT-TAKING CYMBALTA 30 MG CAPSULE DELAYED RELEASE PARTICLES 1 CAPSULE ORALLY DAILY, NOTES: 12-12-16 0800 NOT-TAKING SOMA 350 MG TABLET 1 TABLET NEEDED ORALLY NEEDED BEFORE BEDTIME FOR SPASMS AND PAIN MDD=1, NOTES: 12-11-16 2100 NOT-TAKING MOBIC 15 MG TABLET 1 TABLET ORALLY ONCE A DAY PRN FOR PAIN NOT-TAKING TRILEPTAL 600 MG TABLET ORALLY TWICE A DAY NOT-TAKING SUMATRIPTAN SUCCINATE 50 MG TABLET 1 TABLET NEEDED ORALLY TWICE A DAY NOT-TAKING CELEXA 10 MG TABLET 1 TABLET ORALLY ONCE A DAY NOT-TAKING BUSPIRONE HCL 30 MG TABLET 1 TABLET ORALLY TWICE A DAY, NOTES: 05/22/16 AT 0100 NOT-TAKING WELLBUTRIN 75 MG TABLET 200 MG ORALLY DAILY NOT-TAKING IBUPROFEN 800 MG TABLET 1 TABLET ORALLY WITH FOOD THREE TIMES A DAY NOT-TAKING OMEPRAZOLE 20 MG CAPSULE DELAYED RELEASE ORALLY ONCE A DAY, NOTES: 05/22/16 AT 0100 NOT-TAKING NAPROSYN 250 MG TABLET 1 TABLET ORALLY TWICE A DAY MEDICATION LIST REVIEWED AND RECONCILED WITH THE PATIENT PAST MEDICAL HISTORY FIBROMYALGIA BIPOLAR HIGH CHOLESTEROL VIT D DEFICIENCY MIGRANE GERD SINUSITIS HEMORRHOIDS ASTHMA ALLERGIES LATEX: HIVES: ALLERGY IV CONTRAST DYE: HIVES: ALLERGY STRAWBERRIES: THROAT CLOSES: ALLERGY PINEAPPLE: THROAT CLOSES: ALLERGY SEASONAL: SINUS CONGESTION: ALLERGY CYMBALTA: DIARRHEA: SIDE EFFECTS SOCIAL HISTORY GENERAL: TOBACCO USE ARE YOU A:CURRENT SMOKER HOW MANY CIGARETTES A DAY DO YOU SMOKE?11-20 HOW SOON AFTER YOU WAKE UP DO YOU SMOKE YOUR FIRST CIGARETTE?WITHIN 5 MIN HOW OFTEN DO YOU SMOKE CIGARETTES?EVERY DAY PATIENT COUNSELED ON THE DANGERS OF TOBACCO USE AND URGED TO QUIT:02/19/2017 ARE YOU INTERESTED IN QUITTING?NOT READY TO QUIT COUNSELED THE PATIENT ON SMOKING EFFECTS, EDUCATION [id number]/30/2017 LEARNING BARRIERS / SPECIAL NEEDS ORIENTED TO PLAN OF CARE: PATIENT, PAIN MANAGEMENT PATIENT, ORIENTED TO PLAN OF CARE: PATIENT, PAIN MANAGEMENT PATIENT. NEW PATIENT PAIN DIARY TODAY'S VISITNOTES FROM 0-10, WHAT LEVEL IS YOUR PAIN TODAY?0 PAIN CLINIC PFS, CLERGY, PUBLIC HEALTH REFERRALS PFS REFERRAL NEEDED?NO CLERGY REFERRAL NEEDED?NO PUBLIC HEALTH REFERRAL NEEDED?NO WAS THE PROVIDER NOTIFIED OF ANY PERTINENT INFO?NO PFS REFERRAL NEEDED?NO CLERGY REFERRAL NEEDED?NO PUBLIC HEALTH REFERRAL NEEDED?NO WAS THE PROVIDER NOTIFIED OF ANY PERTINENT INFO?NO REVIEW OF SYSTEMS CONSTITUTIONAL: ANY CHANGE IN YOUR MEDICAL CONDITION? NO . CHILLS NO . FEVER NO . INFECTION: DO YOU HAVE NEW INFECTIONS? NO . DO YOU HAVE HISTORY OF MRSA? NO . MUSCULOSKELETAL: ANY NEW PATTERNS OF PAIN OR NUMBNESS? NO . GASTROENTEROLOGY: ANY NEW CHANGE IN BOWEL CONTROL? NO . GENITOURINARY: ANY NEW CHANGE IN BLADDER CONTROL? NO . IS THERE A CHANCE YOU COULD BE ? NO . HEMATOLOGY/LYMPH: DO YOU TAKE ANY BLOOD THINNERS? (FOR EXAMPLE- COUMADIN, PLAVIX, AGGRENOX, PLATEL, PRADAXA, OR XARELTO) NO . WHEN WAS YOUR LAST DOSE? DATE: TIME: . NEUROLOGY: HAVE YOU FALLEN IN THE PAST 6 MONTHS? NO . ANY NEW EXTREMITY NUMBNESS OR WEAKNESS? NO . CARDIOLOGY: DO YOU HAVE A PACEMAKER OR DEFIBRILLATOR? NO . RESPIRATORY: HAVE YOU BEEN SICK IN THE PAST WEEK? NO . FEVER NO . FLU LIKE SYMPTOMS? NO . COUGH NO . INTEGUMENTARY: DO YOU HAVE ANY RASHES OR OPEN SORES? NO . ALLERGIC/IMMUNO: ARE YOU ALLERGIC TO SHELLFISH OR IV DYE? YES, IV CONTRAST . ANY NEW ALLERGIES? NO . PSYCHIATRIC: DO YOU HAVE THOUGHTS OF HURTING YOURSELF OR SOMEONE ELSE? NO . ARE YOU ABUSED, NEGLECTED, OR IN AN UNSAFE ENVIRONMENT? NO . ENDOCRINOLOGY: ARE YOU DIABETIC? NO . OTHER: DO YOU NEED ANY PRESCRIPTIONS? YES . IF YES, PLEASE LIST: ____GABAPENTIN, VALIUM, PERCOCET . ANY NEW PROBLEMS WITH YOUR MEDICATIONS? NO . WHEN DID YOU LAST EAT? ____ . WHEN DID YOU LAST DRINK? ____ . WHAT DID YOU LAST DRINK? ____ . NAME OF PERSON DRIVING YOU HOME? ____ . DO YOU HAVE ANY OTHER QUESTIONS OR CONCERNS YES,HAS APPOINTMENT 03/13/17 WITH SURGEON FOR HER BACK. HAVING NCS 02/23/17--[facility] . REVIEWED BY: PROVIDER: MICHAEL SCHULER . VITAL SIGNS WT 225.2 LBS, HT 62 IN, BMI 41.19 INDEX, BP 110/69 MM HG, HR 98 /MIN, RR 16 /MIN, TEMP 98.8 F, OXYGEN SAT % 94%, NA INITIALS TL 1058, REVIEWED BY: ADPT WEIGHED ON [facility] WEIGHT SCALE-TL. EXAMINATION GENERAL EXAMINATION: PSYCHALERT , ORIENTED X 3 , APPROPRIATE MOOD AND AFFECT . LUNGS:CLEAR TO AUSCULTATION BILATERALLY. HEART:HEART RATE REGULAR. MUSCULOSKELETAL:EXQUISITE TENDERNESS OVER RIGHT SIJ. AND RIGHT LUMBAR PARAVERTEBRAL MUSCLES. TRIGGER POINTS AND TIGHT FIBROUS BANDS IDENTIFIED OVER LUMBAR MUSCLES WITH RESTRICTION IN ROM WITH FLEXION/EXTENSION AND ROTATION NOTED.:, TENDER WITH PALPATION OVER LUMBAR SPINOUS PROCESSES. SLOW TO RISE TO STANDING POSITION. POSTURE UPRIGHT. GAIT SLOW, NONANTALGIC. 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 FOLLOWUP WITH DR EGAN. WALK EVERY DAY. CLINICAL NOTES: ISTOP REGISTRY REVIEWED AND DEMNOSTRATES COMPLLIANCE. BRINGS IN MEDICATIONS WHICH IS APPROPRIATE FOR WHAT WAS DISPENSED. RECENT URINE TOXICOLOGY REVIEWED. NO UNAUTHORIZED MEDICATIONS. NO ILLICIT SUBSTANCES AND PRESCRIBED MEDICATIONS WERE PRESENT. PROCEDURE CODES FA211 ESTABILISHED PATIENT [facility] CHARGE DISPOSITION & COMMUNICATION FOLLOW UP 26-28 DAYS ELECTRONICALLY SIGNED BY OTTONIEL WADDELL ON 02/23/2017 AT 01:40 PM EDT DISCLAIMER : THIS IS A VISIT SUMMARY EXTRACTED FROM THE [employer] CHART. IT IS NOT A COPY OF THE [employer] PROGRESS NOTE. JEREL
== END ==
LOC: M PAIN 10:40
PROVIDERS: ATTEND Nurse Practitioner Family
DX: Z09 Encounter for follow-up examination after completed treatment for conditions other than malignant neoplasm (principal); G89.29 Other chronic pain; M46.1 Sacroiliitis, not elsewhere classified; M54.16 Radiculopathy, lumbar region; M51.26 Other intervertebral disc displacement, lumbar region; M79.7 Fibromyalgia; F31.9 Bipolar disorder, unspecified; E78.00 Pure hypercholesterolemia, unspecified; E55.9 Vitamin D deficiency, unspecified; G43.909 Migraine, unspecified, not intractable, without status migrainosus; K21.9 Gastro-esophageal reflux disease without esophagitis; J44.9 Chronic obstructive pulmonary disease, unspecified; F17.200 Nicotine dependence, unspecified, uncomplicated; Z91.040 Latex allergy status; Z91.041 Radiographic dye allergy status; Z91.018 Allergy to other foods; Z88.8 Allergy status to other drugs, medicaments and biological substances; J30.2 Other seasonal allergic rhinitis; Z79.899 Other long term (current) drug therapy

== ENCOUNTER → 2017-03-17 | Outpatient (CLI) | payer OTHER ==
[~2017-03-17] MED LIST changes: +ALBU17IN INH; +ARNU1INH IN; +GABA800T PO; +INDE1CAP5 PO; +LORA10CA PO; +MAXA10TA14 PO; +MOBI15TA PO; +OXYC1TAB23 PO; +TIZA4CAP3 PO; +TOPA100T8 PO; +VALI5TAB PO
--- NOTE | 2017-04-07 02:16 | ECWPNPC ---
PATIENT NAME: NATALIE REMY : 1985 GENDER: FEMALE VISIT DATE: 03/17/2017 DISCHARGE DATE: 03/17/17 1540 VISIT LOCKED DATE TIME: PHYSICIAN: MICHAEL UPTON RESOURCE: MICHAEL UPTON HISTORY OF PRESENT ILLNESS HISTORY OF PRESENT ILLNESS: PAIN THE PATIENT DESCRIBES THE PAIN... FALL RISK SCREENING: SCREENING :NO FALLS IN THE PAST YEAR TODAY'S VISIT: NOTES: RATES PAIN TODAY 8-9/10. PAIN CENTERED IN LOW BACK RIGHT SIDE. DESCRIBES PAIN CONSTANT, ACHING, STABBING, SHARP THROBBING AND SORE. DID SEE DR EGAN FOR SURGICAL EVAL ON 03/13/17. HE HAS ORDERED MRI AND XRAY OF NECK , AND LABS. REPORTS LOWER EXTREMITIES HAVE CONTINUES TO BE SWOLLEN. IS IN PROCESS OF GETTING A NEW PCP. . CURRENT MEDICATIONS TAKING RANITIDINE HCL 150 MG CAPSULE 1 CAPSULE ORALLY TWICE A DAY TAKING LATUDA 60 MG TABLET 1 TAB ORALLY DAILY TAKING VENTOLIN HFA 108 (90 BASE) MCG/ACT AEROSOL SOLUTION 2 PUFFS NEEDED INHALATION EVERY 4 HRS TAKING TOPAMAX 100 100MG TABLET ORAL TWICE DAILY TAKING MAXALT 10 MG TABLET 1 TABLET NEEDED ONE TIME ORALLY ONCE A DAY TAKING LORATADINE 10 MG TABLET 1 TABLET ORALLY ONCE A DAY TAKING INDERAL 20 MG 10MG TAB PO BID TAKING AMITRIPTYLINE HCL 10 MG TABLET 1 TABLET ORALLY THREE TIMES A DAY, NOTES: 03/17/17 AT 1030 TAKING TIZANIDINE HCL 4 MG TABLET 1 TABLET NEEDED ORALLY THREE TIMES A DAY, NOTES: 03/17/17 AT 1030 TAKING PERCOCET 5-325 MG TABLET 1 TABLET NEEDED ORALLY EVERY 8 HRS PRN PAIN MDD=3, NOTES: 03/16/17 AT 2100 TAKING GABAPENTIN 800 MG TABLET 1 CAPSULE ORALLY FOUR TIMES A DAY, NOTES: 03/17/17 AT 1030 TAKING MOBIC 15 MG TABLET 1 TABLET ORALLY ONCE A DAY PRN FOR PAIN TAKING VALIUM 5 MG TABLET 1 TABLET NEEDED ORALLY 3X/DAY NEEDED, NOTES: 03/16/17 AT 2100 NOT-TAKING SOMA 350 MG TABLET 1 TABLET NEEDED ORALLY NEEDED BEFORE BEDTIME FOR SPASMS AND PAIN MDD=1, NOTES: 12-11-162099 NOT-TAKING TRILEPTAL 600 MG TABLET ORALLY TWICE A DAY NOT-TAKING SUMATRIPTAN SUCCINATE 50 MG TABLET 1 TABLET NEEDED ORALLY TWICE A DAY NOT-TAKING CELEXA 10 MG TABLET 1 TABLET ORALLY ONCE A DAY NOT-TAKING BUSPIRONE HCL 30 MG TABLET 1 TABLET ORALLY TWICE A DAY, NOTES: 05/22/16 AT 0100 NOT-TAKING WELLBUTRIN 75 MG TABLET 200 MG ORALLY DAILY NOT-TAKING IBUPROFEN 800 MG TABLET 1 TABLET ORALLY WITH FOOD THREE TIMES A DAY NOT-TAKING OMEPRAZOLE 20 MG CAPSULE DELAYED RELEASE ORALLY ONCE A DAY, NOTES: 05/22/16 AT 0100 NOT-TAKING NAPROSYN 250 MG TABLET 1 TABLET ORALLY TWICE A DAY MEDICATION LIST REVIEWED AND RECONCILED WITH THE PATIENT PAST MEDICAL HISTORY FIBROMYALGIA BIPOLAR HIGH CHOLESTEROL VIT D DEFICIENCY MIGRANE GERD SINUSITIS HEMORRHOIDS ASTHMA ALLERGIES LATEX: HIVES: ALLERGY IV CONTRAST DYE: HIVES: ALLERGY STRAWBERRIES: THROAT CLOSES: ALLERGY PINEAPPLE: THROAT CLOSES: ALLERGY SEASONAL: SINUS CONGESTION: ALLERGY CYMBALTA: DIARRHEA: SIDE EFFECTS SOCIAL HISTORY GENERAL: PAIN CLINIC PFS, CLERGY, PUBLIC HEALTH REFERRALS CLERGY REFERRAL NEEDED?NO WAS THE PROVIDER NOTIFIED OF ANY PERTINENT INFO?NO PFS REFERRAL NEEDED?NO PUBLIC HEALTH REFERRAL NEEDED?NO PATIENT: ____. REVIEW OF SYSTEMS CONSTITUTIONAL: ANY CHANGE IN YOUR MEDICAL CONDITION? NO . CHILLS NO . FEVER NO . INFECTION: DO YOU HAVE NEW INFECTIONS? NO . DO YOU HAVE HISTORY OF MRSA? NO . MUSCULOSKELETAL: ANY NEW PATTERNS OF PAIN OR NUMBNESS? NO . GASTROENTEROLOGY: ANY NEW CHANGE IN BOWEL CONTROL? NO . GENITOURINARY: ANY NEW CHANGE IN BLADDER CONTROL? NO . IS THERE A CHANCE YOU COULD BE ? NO . HEMATOLOGY/LYMPH: DO YOU TAKE ANY BLOOD THINNERS? (FOR EXAMPLE- COUMADIN, PLAVIX, AGGRENOX, PLATEL, PRADAXA, OR XARELTO) NO . WHEN WAS YOUR LAST DOSE? DATE: TIME: . NEUROLOGY: HAVE YOU FALLEN IN THE PAST 6 MONTHS? NO . ANY NEW EXTREMITY NUMBNESS OR WEAKNESS? NO . CARDIOLOGY: DO YOU HAVE A PACEMAKER OR DEFIBRILLATOR? NO . RESPIRATORY: HAVE YOU BEEN SICK IN THE PAST WEEK? NO . FEVER NO . FLU LIKE SYMPTOMS? NO . COUGH NO . INTEGUMENTARY: DO YOU HAVE ANY RASHES OR OPEN SORES? NO . ALLERGIC/IMMUNO: ARE YOU ALLERGIC TO SHELLFISH OR IV DYE? YES, IV DYE . ANY NEW ALLERGIES? NO . PSYCHIATRIC: DO YOU HAVE THOUGHTS OF HURTING YOURSELF OR SOMEONE ELSE? NO . ARE YOU ABUSED, NEGLECTED, OR IN AN UNSAFE ENVIRONMENT? NO . ENDOCRINOLOGY: ARE YOU DIABETIC? NO . OTHER: DO YOU NEED ANY PRESCRIPTIONS? YES . IF YES, PLEASE LIST: ____ . ANY NEW PROBLEMS WITH YOUR MEDICATIONS? NO . WHEN DID YOU LAST EAT? ____ . WHEN DID YOU LAST DRINK? ____ . WHAT DID YOU LAST DRINK? ____ . NAME OF PERSON DRIVING YOU HOME? ____ . DO YOU HAVE ANY OTHER QUESTIONS OR CONCERNS NO . PSYCHOLOGY: HIGH STRESS LEVEL INCREASED PTSD SX . REVIEWED BY: PROVIDER: MICHAEL SCHULER . VITAL SIGNS WT 232 LBS, HT 62 IN, BMI 42.43 INDEX, BP 116/56 MM HG, HR 92 /MIN, RR 18 /MIN, TEMP 98 F,8 F, OXYGEN SAT % 95%, SAFE IN ENV? (Y/N) YES, NA INITIALS KG 1446, REVIEWED BY: CS. EXAMINATION GENERAL EXAMINATION: PSYCHALERT , ORIENTED X 3 , APPROPRIATE MOOD AND AFFECT . LUNGS:CLEAR TO AUSCULTATION BILATERALLY. HEART:HEART RATE REGULAR. MUSCULOSKELETAL:EXQUISITE TENDERNESS OVER RIGHT SIJ. AND RIGHT LUMBAR PARAVERTEBRAL MUSCLES. TRIGGER POINTS AND TIGHT FIBROUS BANDS IDENTIFIED OVER LUMBAR MUSCLES WITH RESTRICTION IN ROM WITH FLEXION/EXTENSION AND ROTATION NOTED.:, TENDER WITH PALPATION OVER LUMBAR SPINOUS PROCESSES. SLOW TO RISE TO STANDING POSITION. POSTURE UPRIGHT. GAIT SLOW, NONANTALGIC. ASSESSMENTS SACROILIITIS - M46.1 (PRIMARY) LUMBAR RADICULOPATHY - M54.16 LUMBAR DISC DISPLACEMENT WITHOUT MYELOPATHY - M51.26 TREATMENT SACROILIITIS REFILL PERCOCET TABLET, 5-325 MG, 1 TABLET NEEDED, ORALLY, EVERY 8 HRS PRN PAIN MDD=3, 30 DAY(S), 30, REFILLS 0 REFILL VALIUM TABLET, 5 MG, 1 TABLET NEEDED, ORALLY, 3X/DAY NEEDED, 30 DAYS, 30, REFILLS 0 NOTES: CALL PROJECT ARCHIVIST ABOUT WORRIES. OTHERS NOTES: DECREASE GABAPENIN 800 TO 1 TAB IN AM , 1 AT NOON, 1/2 TAB AT SUPPER AND 1 TAB AT BEDTIME FOR 1 WEEK. AFTER 1 WEEK DECREASE TO 800 MG 3 TIMES PER DAY. CLINICAL NOTES: ISTOP REGISTRY REVIEWED AND DEMNOSTRATES COMPLLIANCE. BRINGS IN MEDICATIONS WHICH IS APPROPRIATE FOR WHAT WAS DISPENSED. PROCEDURE CODES FA211 ESTABILISHED PATIENT [facility] CHARGE DISPOSITION & COMMUNICATION FOLLOW UP 3 WEEKS ELECTRONICALLY SIGNED BY OTTONIEL WADDELL ON 04/06/2017 AT 09:56 AM EDT DISCLAIMER : THIS IS A VISIT SUMMARY EXTRACTED FROM THE [employer] CHART. IT IS NOT A COPY OF THE [employer] PROGRESS NOTE. BLAYNED
== END ==
LOC: M PAIN 14:40
PROVIDERS: ATTEND Nurse Practitioner Family
DX: G89.29 Other chronic pain (principal); M46.1 Sacroiliitis, not elsewhere classified; M54.16 Radiculopathy, lumbar region; M51.26 Other intervertebral disc displacement, lumbar region; M79.7 Fibromyalgia; F31.9 Bipolar disorder, unspecified; E78.00 Pure hypercholesterolemia, unspecified; E55.9 Vitamin D deficiency, unspecified; G43.909 Migraine, unspecified, not intractable, without status migrainosus; K21.9 Gastro-esophageal reflux disease without esophagitis; J45.909 Unspecified asthma, uncomplicated; Z91.040 Latex allergy status; Z91.041 Radiographic dye allergy status; Z91.018 Allergy to other foods; Z88.8 Allergy status to other drugs, medicaments and biological substances; Z79.899 Other long term (current) drug therapy

== ENCOUNTER → 2017-03-17 | Outpatient (CLI) | payer OTHER ==
[~2017-03-17] MED LIST changes: -ALBU17IN INH; -ARNU1INH IN; -GABA800T PO; -INDE1CAP5 PO; -LORA10CA PO; -MAXA10TA14 PO; -MOBI15TA PO; -OXYC1TAB23 PO; -TIZA4CAP3 PO; -TOPA100T8 PO; -VALI5TAB PO
--- NOTE | 2017-03-18 03:36 | REP ---
Clinical: Spondylosis. Technique: AP, lateral, flexion/extension, swimmer's, open-mouth, bilateral oblique views of the cervical spine. Findings: Moderate focal degenerative disc osteophyte complex at the C5-6 level. Remainder of the cervical spine appears normal. No evidence for acute fracture / compression injury or subluxation. Spinous processes are intact. Paravertebral soft tissues normal. Impression: Focal moderate degenerative change at the C5-6 level. Signed by Federico Hamlin MD 03/18/2017 01:33 A
--- NOTE | 2017-03-18 03:36 | REP ---
Clinical: Spondylosis . Technique: AP, lateral, bilateral oblique, flexion/extension and coned-down views. Findings: Alignment and lordosis is maintained. The vertebral bodies including transverse process and spinous processes are intact and normal. There is no evidence for acute fracture / compression injury or subluxation. No evidence for spondylolysis or spondylolisthesis. No significant degenerative change is noted. Impression: Normal lumbosacral spine radiograph series. Signed by Federico Hamlin MD 03/18/2017 01:32 A
== END ==
LOC: M LAB 15:58
PROVIDERS: ATTEND Neurological Surgery
DX: E66.9 Obesity, unspecified (principal); M47.896 Other spondylosis, lumbar region

== ENCOUNTER 2017-03-22 20:51 | Emergency (ER) | payer OTHER ==
[~2017-03-22] VITALS: Ht 157.5 cm; Wt 104.3 kg
[2017-03-22] MEDS ORDERED: MAXA10TA14 PO (21:31)
[2017-03-22] MEDS ORDERED: LORA10CA PO (21:31)
[2017-03-22] MEDS ORDERED: ARNU1INH IN (21:31)
[2017-03-22] MEDS ORDERED: MOBI15TA PO (21:31)
[2017-03-22] MEDS ORDERED: GABA800T PO (21:31)
[2017-03-22] MEDS ORDERED: ALBU17IN INH (21:31)
[2017-03-22] MEDS ORDERED: TOPA100T8 PO (21:31)
[2017-03-22] MEDS ORDERED: INDE1CAP5 PO (21:31)
[2017-03-22] MEDS ORDERED: OXYC1TAB23 PO (21:31)
[2017-03-22] MEDS ORDERED: VALI5TAB PO (21:31)
[2017-03-22] MEDS ORDERED: TIZA4CAP3 PO (21:31)
[2017-03-22 22:47] LABS: MEAN CORPUSCULAR HEMOGLOBIN 34.9 pg (27.0-33.0); MEAN CORPUSCULAR HGB CONC 35.6 g/dl (32.0-36.5); MEAN CORPUSCULAR VOLUME 98.2 fl (80.0-96.0); RED CELL DISTRIBUTION WIDTH 12.1 % (11.5-14.5); WHITE BLOOD COUNT 8.1 K/mm3 (4.0-10.0)
[2017-03-22 23:05] LABS: METHADONE URINE NEGATIVE (NEGATIVE)
[2017-03-22 23:08] LABS: CONTROL LINE HCG INT CTR LINE PRESENT
[2017-03-22 23:24] LABS: ALBUMIN 3.6 GM/DL (3.2-5.2); ALBUMIN/GLOBULIN RATIO 1.06 (1.00-1.93); ALKALINE PHOSPHATASE 89 U/L (45-117); ALT/SGPT 36 U/L (12-78); ANION GAP 7 MEQ/L (8-16); AST/SGOT 30 U/L (15-37); BILIRUBIN,DIRECT < 0.1 MG/DL (0.0-0.2); BILIRUBIN,TOTAL 0.2 MG/DL (0.2-1.0); BLOOD UREA NITROGEN 15 MG/DL (7-18); CALCIUM LEVEL 8.5 MG/DL (8.5-10.1); CARBON DIOXIDE LEVEL 26 MEQ/L (21-32); CHLORIDE LEVEL 108 MEQ/L (98-107); CREATININE FOR GFR 1.03 MG/DL (0.55-1.02); GLOMERULAR FILTRATION RATE > 60.0 (>60); GLUCOSE, FASTING 102 MG/DL (70-105); POTASSIUM SERUM 3.8 MEQ/L (3.5-5.1); SODIUM LEVEL 141 MEQ/L (136-145)
[2017-03-23] MEDS ORDERED: LORATADINE 10 MG TAB PO ONE
[2017-03-23] MEDS ORDERED: GABAPENTIN 400 MG CAP PO ONE
[2017-03-23] MEDS ORDERED: PROPRANOLOL 10 MG TAB PO ONE
[2017-03-23] MEDS ORDERED: TOPIRAMATE (TopAMAX) 100 MG TAB PO ONE
[2017-03-23] MEDS ORDERED: traZODone 100 MG TAB PO ONE
[2017-03-23 02:44] VITALS: BP 123/74
== END 2017-03-23 02:45 | disposition other institution (70) ==
LOC: M ED 22:14
DX: R45.850 Homicidal ideations (principal); F32.9 Major depressive disorder, single episode, unspecified; F43.10 Post-traumatic stress disorder, unspecified; F41.9 Anxiety disorder, unspecified; Z79.899 Other long term (current) drug therapy; Z91.02 Food additives allergy status; Z91.041 Radiographic dye allergy status; Z91.040 Latex allergy status; Z91.018 Allergy to other foods; Z88.8 Allergy status to other drugs, medicaments and biological substances
CPT/HCPCS: 36415; 80048; 80076; 80306; 84443; 84703; 85027; 99285; G0480

== ENCOUNTER → 2017-04-15 | Outpatient (CLI) | payer OTHER ==
[~2017-04-15] MED LIST changes: +ALBU17IN INH; +ARNU1INH IN; +GABA800T PO; +INDE1CAP5 PO; +LORA10CA PO; +MAXA10TA14 PO; +MOBI15TA PO; +OXYC1TAB23 PO; +TIZA4CAP3 PO; +TOPA100T8 PO; +VALI5TAB PO
== END ==
LOC: M LAB 12:32
PROVIDERS: ATTEND Nurse Practitioner Psychiatric/Mental Health
DX: F31.9 Bipolar disorder, unspecified (principal)

== ENCOUNTER → 2017-04-15 | Outpatient (CLI) | payer OTHER ==
--- NOTE | 2017-05-09 00:30 | ECWPNPC ---
PATIENT NAME: NATALIE REMY : 1985 GENDER: FEMALE VISIT DATE: 04/15/2017 DISCHARGE DATE: 04/15/17 1209 VISIT LOCKED DATE TIME: PHYSICIAN: MICHAEL UPTON RESOURCE: MICHAEL UPTON REASON FOR APPOINTMENT 1. BACK HISTORY OF PRESENT ILLNESS HISTORY OF PRESENT ILLNESS: PAIN THE PATIENT DESCRIBES THE PAIN... FALL RISK SCREENING: SCREENING :NO FALLS IN THE PAST YEAR TODAY'S VISIT: NOTES: STATES IS HAPPIER AND IS FEELING BETTER. HAS HAD SOME SPIKES OF PAIN WITH ACTIVITIES. RATES PAIN TODAY 7-8/10. DESCRIBES PAIN CONSTANT, STABBING, THROBBING AND SHOOTING INTO RIGHT SIDE AND LEG. . CURRENT MEDICATIONS TAKING RANITIDINE HCL 150 MG CAPSULE 1 CAPSULE ORALLY TWICE A DAY TAKING VENTOLIN HFA 108 (90 BASE) MCG/ACT AEROSOL SOLUTION 2 PUFFS NEEDED INHALATION EVERY 4 HRS TAKING TOPAMAX 100 100MG TABLET ORAL TWICE DAILY TAKING MAXALT 10 MG TABLET 1 TABLET NEEDED ONE TIME ORALLY ONCE A DAY TAKING LORATADINE 10 MG TABLET 1 TABLET ORALLY ONCE A DAY TAKING INDERAL 20 MG 10MG TAB PO BID TAKING TIZANIDINE HCL 4 MG TABLET 1 TABLET NEEDED ORALLY THREE TIMES A DAY, NOTES: 03/17/17 AT 1030 TAKING GABAPENTIN 800 MG TABLET 1 CAPSULE ORALLY THREE TIMES DAILY, NOTES: 03/17/17 AT 1030 TAKING MOBIC 15 MG TABLET 1 TABLET ORALLY ONCE A DAY PRN FOR PAIN TAKING PERCOCET 5-325 MG TABLET 1 TABLET NEEDED ORALLY EVERY 8 HRS PRN PAIN MDD=3 TAKING VALIUM 5 MG TABLET 1 TABLET NEEDED ORALLY 3X/DAY NEEDED TAKING VENLAFAXINE HCL ER 150 MG TABLET EXTENDED RELEASE 24 HOUR 1 TABLET WITH FOOD ORALLY ONCE A DAY TAKING DIVALPROEX SODIUM 500 MG TABLET DELAYED RELEASE ORALLY TAKING TRAZODONE HCL 100 MG TABLET 1 TABLET AT BEDTIME ORALLY ONCE A DAY NOT-TAKING SOMA 350 MG TABLET 1 TABLET NEEDED ORALLY NEEDED BEFORE BEDTIME FOR SPASMS AND PAIN MDD=1, NOTES: 12-11-162099 NOT-TAKING TRILEPTAL 600 MG TABLET ORALLY TWICE A DAY NOT-TAKING SUMATRIPTAN SUCCINATE 50 MG TABLET 1 TABLET NEEDED ORALLY TWICE A DAY NOT-TAKING CELEXA 10 MG TABLET 1 TABLET ORALLY ONCE A DAY NOT-TAKING BUSPIRONE HCL 30 MG TABLET 1 TABLET ORALLY TWICE A DAY, NOTES: 05/22/16 AT 0100 NOT-TAKING WELLBUTRIN 75 MG TABLET 200 MG ORALLY DAILY NOT-TAKING IBUPROFEN 800 MG TABLET 1 TABLET ORALLY WITH FOOD THREE TIMES A DAY NOT-TAKING OMEPRAZOLE 20 MG CAPSULE DELAYED RELEASE ORALLY ONCE A DAY, NOTES: 05/22/16 AT 0100 NOT-TAKING NAPROSYN 250 MG TABLET 1 TABLET ORALLY TWICE A DAY DISCONTINUED LATUDA 60 MG TABLET 1 TAB ORALLY DAILY DISCONTINUED AMITRIPTYLINE HCL 10 MG TABLET 1 TABLET ORALLY THREE TIMES A DAY, NOTES: 03/17/17 AT 1030 MEDICATION LIST REVIEWED AND RECONCILED WITH THE PATIENT PAST MEDICAL HISTORY FIBROMYALGIA BIPOLAR HIGH CHOLESTEROL VIT D DEFICIENCY MIGRANE GERD SINUSITIS HEMORRHOIDS ASTHMA ALLERGIES LATEX: HIVES: ALLERGY IV CONTRAST DYE: HIVES: ALLERGY STRAWBERRIES: THROAT CLOSES: ALLERGY PINEAPPLE: THROAT CLOSES: ALLERGY SEASONAL: SINUS CONGESTION: ALLERGY CYMBALTA: DIARRHEA: SIDE EFFECTS REVIEW OF SYSTEMS CONSTITUTIONAL: ANY CHANGE IN YOUR MEDICAL CONDITION? YES PT RECENTLY AN INPATIENT AT [facility] 03/22-03/31 . CHILLS NO . FEVER NO . INFECTION: DO YOU HAVE NEW INFECTIONS? NO . DO YOU HAVE HISTORY OF MRSA? NO . MUSCULOSKELETAL: ANY NEW PATTERNS OF PAIN OR NUMBNESS? NO . GASTROENTEROLOGY: ANY NEW CHANGE IN BOWEL CONTROL? NO . GENITOURINARY: ANY NEW CHANGE IN BLADDER CONTROL? NO . IS THERE A CHANCE YOU COULD BE ? NO . HEMATOLOGY/LYMPH: DO YOU TAKE ANY BLOOD THINNERS? (FOR EXAMPLE- COUMADIN, PLAVIX, AGGRENOX, PLATEL, PRADAXA, OR XARELTO) NO . WHEN WAS YOUR LAST DOSE? DATE: TIME: . NEUROLOGY: HAVE YOU FALLEN IN THE PAST 6 MONTHS? NO . ANY NEW EXTREMITY NUMBNESS OR WEAKNESS? NO . CARDIOLOGY: DO YOU HAVE A PACEMAKER OR DEFIBRILLATOR? NO . RESPIRATORY: HAVE YOU BEEN SICK IN THE PAST WEEK? NO . FEVER NO . FLU LIKE SYMPTOMS? NO . COUGH NO . INTEGUMENTARY: DO YOU HAVE ANY RASHES OR OPEN SORES? NO . ALLERGIC/IMMUNO: ARE YOU ALLERGIC TO SHELLFISH OR IV DYE? YES . ANY NEW ALLERGIES? NO . PSYCHIATRIC: DO YOU HAVE THOUGHTS OF HURTING YOURSELF OR SOMEONE ELSE? NO . ARE YOU ABUSED, NEGLECTED, OR IN AN UNSAFE ENVIRONMENT? NO . ENDOCRINOLOGY: ARE YOU DIABETIC? NO . OTHER: DO YOU NEED ANY PRESCRIPTIONS? YES . IF YES, PLEASE LIST: ____PERCOCET, VALIUM . ANY NEW PROBLEMS WITH YOUR MEDICATIONS? NO . WHEN DID YOU LAST EAT? ____ . WHEN DID YOU LAST DRINK? ____ . WHAT DID YOU LAST DRINK? ____ . NAME OF PERSON DRIVING YOU HOME? ____ . DO YOU HAVE ANY OTHER QUESTIONS OR CONCERNS NO . REVIEWED BY: PROVIDER: MICHAEL SCHULER . VITAL SIGNS WT 225.8 LBS, HT 62 IN, BMI 41.29 INDEX, BP 119/67 MM HG, HR 78 /MIN, RR 16 /MIN, TEMP 99.5 F, OXYGEN SAT % 95%, NA INITIALS SC 11:31. EXAMINATION GENERAL EXAMINATION: PSYCHALERT , ORIENTED X 3 , APPROPRIATE MOOD AND AFFECT . LUNGS:CLEAR TO AUSCULTATION BILATERALLY. HEART:HEART RATE REGULAR. MUSCULOSKELETAL:EXQUISITE TENDERNESS OVER RIGHT SIJ. AND RIGHT LUMBAR PARAVERTEBRAL MUSCLES. TRIGGER POINTS AND TIGHT FIBROUS BANDS IDENTIFIED OVER LUMBAR MUSCLES WITH RESTRICTION IN ROM WITH FLEXION/EXTENSION AND ROTATION NOTED.:, TENDER WITH PALPATION OVER LUMBAR SPINOUS PROCESSES. SLOW TO RISE TO STANDING POSITION. POSTURE UPRIGHT. GAIT SLOW, NONANTALGIC. 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 CLINICAL NOTES: ISTOP REGISTRY REVIEWED AND DEMNOSTRATES COMPLLIANCE. BRINGS IN MEDICATIONS WHICH IS APPROPRIATE FOR WHAT WAS DISPENSED. RECENT URINE TOXICOLOGY REVIEWED. NO UNAUTHORIZED MEDICATIONS. NO ILLICIT SUBSTANCES AND PRESCRIBED MEDICATIONS WERE PRESENT. PROCEDURE CODES FA211 ESTABILISHED PATIENT [facility] FACILITY CHARGE DISPOSITION & COMMUNICATION FOLLOW UP 1 MONTH ELECTRONICALLY SIGNED BY OTTONIEL WADDELL ON 05/08/2017 AT 07:17 PM EDT DISCLAIMER : THIS IS A VISIT SUMMARY EXTRACTED FROM THE [facility] CHART. IT IS NOT A COPY OF THE [employer] PROGRESS NOTE. MTDD
== END ==
LOC: M PAIN 10:40
PROVIDERS: ATTEND Nurse Practitioner Family
DX: G89.29 Other chronic pain (principal); M46.1 Sacroiliitis, not elsewhere classified; M54.16 Radiculopathy, lumbar region; M51.26 Other intervertebral disc displacement, lumbar region; M79.7 Fibromyalgia; F31.9 Bipolar disorder, unspecified; E78.00 Pure hypercholesterolemia, unspecified; E55.9 Vitamin D deficiency, unspecified; G43.909 Migraine, unspecified, not intractable, without status migrainosus; K21.9 Gastro-esophageal reflux disease without esophagitis; J45.909 Unspecified asthma, uncomplicated; Z91.040 Latex allergy status; Z91.041 Radiographic dye allergy status; Z91.018 Allergy to other foods; Z88.8 Allergy status to other drugs, medicaments and biological substances; Z79.1 Long term (current) use of non-steroidal anti-inflammatories (NSAID); Z79.899 Other long term (current) drug therapy

== ENCOUNTER → 2017-05-13 | Outpatient (CLI) | payer OTHER ==
[~2017-05-13] MED LIST changes: +CARA1TAB6 PO; -CELE-19 PO; +CELE1CAP4 PO; +DEPA1TAB3 PO; +DOXE10CA PO; +ERYTOIN8 OS; -FOLI1TAB2 PO; +FOLI1TAB4 PO; +HYDR-3363 PO; +HYDR-643 PO; -HYDR10T PO; -HYDR25T PO; +TOPA100T12 PO; -TOPA100T8 PO; -TOPI50TA4 PO; +TOPI50TA9 PO; +VENL150C43 PO
--- NOTE | 2017-06-02 02:07 | ECWPNPC ---
PATIENT NAME: NATALIE REMY : 1985 GENDER: FEMALE VISIT DATE: 05/13/2017 DISCHARGE DATE: 05/13/17 1424 VISIT LOCKED DATE TIME: PHYSICIAN: MICHAEL UPTON RESOURCE: MICHAEL UPTON REASON FOR APPOINTMENT 1. BACK HISTORY OF PRESENT ILLNESS HISTORY OF PRESENT ILLNESS: PAIN THE PATIENT DESCRIBES THE PAIN... FALL RISK SCREENING: SCREENING :NO FALLS IN THE PAST YEAR TODAY'S VISIT: NOTES: RATES PAIN TODAY 7-8/10. STATES WALKED 4 MILES EARLIER THIS WEEK ON THE BLACK [employer] TRAIL - STATES DID IT JUST TO PUSH HERSELF. DID HAVE PAIN IN LOW BACK AND POSTERIOR THIGHS. AFTER BUT WAS ABLE TO GET HOME. PAIN IS WORSE AT NIGHT. . CURRENT MEDICATIONS TAKING RANITIDINE HCL 150 MG CAPSULE 1 CAPSULE ORALLY TWICE A DAY TAKING VENTOLIN HFA 108 (90 BASE) MCG/ACT AEROSOL SOLUTION 2 PUFFS NEEDED INHALATION EVERY 4 HRS TAKING TOPAMAX 100 100MG TABLET ORAL TWICE DAILY TAKING MAXALT 10 MG TABLET 1 TABLET NEEDED ONE TIME ORALLY ONCE A DAY TAKING LORATADINE 10 MG TABLET 1 TABLET ORALLY ONCE A DAY TAKING INDERAL 20 MG 10MG TAB PO BID TAKING TIZANIDINE HCL 4 MG TABLET 1 TABLET NEEDED ORALLY THREE TIMES A DAY TAKING GABAPENTIN 800 MG TABLET 1 CAPSULE ORALLY THREE TIMES DAILY TAKING MOBIC 15 MG TABLET 1 TABLET ORALLY ONCE A DAY PRN FOR PAIN TAKING VENLAFAXINE HCL ER 150 MG TABLET EXTENDED RELEASE 24 HOUR 1 TABLET WITH FOOD ORALLY ONCE A DAY TAKING DIVALPROEX SODIUM 500 MG TABLET DELAYED RELEASE 2 TAB ORALLY DAILY TAKING TRAZODONE HCL 100 MG TABLET 1 TABLET AT BEDTIME ORALLY ONCE A DAY TAKING VALIUM 5 MG TABLET 1 TABLET ORALLY 3X/DAY NEEDED FOR SPASM OR ANXIETY MDD=2 TAKING PERCOCET 5-325 MG TABLET 1 TABLET NEEDED ORALLY EVERY 8 HRS PRN PAIN MDD=3 NOT-TAKING SOMA 350 MG TABLET 1 TABLET NEEDED ORALLY NEEDED BEFORE BEDTIME FOR SPASMS AND PAIN MDD=1, NOTES: 12-11-162099 NOT-TAKING TRILEPTAL 600 MG TABLET ORALLY TWICE A DAY NOT-TAKING SUMATRIPTAN SUCCINATE 50 MG TABLET 1 TABLET NEEDED ORALLY TWICE A DAY NOT-TAKING CELEXA 10 MG TABLET 1 TABLET ORALLY ONCE A DAY NOT-TAKING BUSPIRONE HCL 30 MG TABLET 1 TABLET ORALLY TWICE A DAY, NOTES: 05/22/16 AT 0100 NOT-TAKING WELLBUTRIN 75 MG TABLET 200 MG ORALLY DAILY NOT-TAKING IBUPROFEN 800 MG TABLET 1 TABLET ORALLY WITH FOOD THREE TIMES A DAY NOT-TAKING OMEPRAZOLE 20 MG CAPSULE DELAYED RELEASE ORALLY ONCE A DAY, NOTES: 05/22/16 AT 0100 NOT-TAKING NAPROSYN 250 MG TABLET 1 TABLET ORALLY TWICE A DAY MEDICATION LIST REVIEWED AND RECONCILED WITH THE PATIENT PAST MEDICAL HISTORY FIBROMYALGIA BIPOLAR HIGH CHOLESTEROL VIT D DEFICIENCY MIGRANE GERD SINUSITIS HEMORRHOIDS ASTHMA ALLERGIES LATEX: HIVES: ALLERGY IV CONTRAST DYE: HIVES: ALLERGY STRAWBERRIES: THROAT CLOSES: ALLERGY PINEAPPLE: THROAT CLOSES: ALLERGY SEASONAL: SINUS CONGESTION: ALLERGY CYMBALTA: DIARRHEA: SIDE EFFECTS SOCIAL HISTORY GENERAL: SABIANISM [id number] NONE PAIN CLINIC PFS, CLERGY, PUBLIC HEALTH REFERRALS PFS REFERRAL NEEDED?NO CLERGY REFERRAL NEEDED?NO PUBLIC HEALTH REFERRAL NEEDED?NO WAS THE PROVIDER NOTIFIED OF ANY PERTINENT INFO?NO HAS THE PATIENT BEEN EDUCATED REGARDING HIS/HER PLAN OF CARE?YES HAS THE PATIENT BEEN EDUCATED REGARDING PAIN, THE RISK FOR PAIN, THE IMPORTANCE OF EFFECTIVE PAIN MANAGEMENT, AND THE PAIN ASSESSMENT PROCESS?YES PATIENT: ____. REVIEW OF SYSTEMS REVIEWED BY: PROVIDER: MICHAEL SCHULER . CONSTITUTIONAL: ANY CHANGE IN YOUR MEDICAL CONDITION? NO . CHILLS NO . FEVER NO . INFECTION: DO YOU HAVE NEW INFECTIONS? NO . DO YOU HAVE HISTORY OF MRSA? NO . MUSCULOSKELETAL: ANY NEW PATTERNS OF PAIN OR NUMBNESS? YES, CRAMPING RIGHT THIGH . GASTROENTEROLOGY: ANY NEW CHANGE IN BOWEL CONTROL? NO . GENITOURINARY: ANY NEW CHANGE IN BLADDER CONTROL? NO . IS THERE A CHANCE YOU COULD BE ? NO . HEMATOLOGY/LYMPH: DO YOU TAKE ANY BLOOD THINNERS? (FOR EXAMPLE- COUMADIN, PLAVIX, AGGRENOX, PLATEL, PRADAXA, OR XARELTO) NO . WHEN WAS YOUR LAST DOSE? DATE: TIME: . NEUROLOGY: HAVE YOU FALLEN IN THE PAST 6 MONTHS? NO . ANY NEW EXTREMITY NUMBNESS OR WEAKNESS? NO . CARDIOLOGY: DO YOU HAVE A PACEMAKER OR DEFIBRILLATOR? NO . RESPIRATORY: HAVE YOU BEEN SICK IN THE PAST WEEK? NO . FEVER NO . FLU LIKE SYMPTOMS? NO . COUGH NO . INTEGUMENTARY: DO YOU HAVE ANY RASHES OR OPEN SORES? NO . ALLERGIC/IMMUNO: ARE YOU ALLERGIC TO SHELLFISH OR IV DYE? YES, IV DYE . ANY NEW ALLERGIES? NO . PSYCHIATRIC: DO YOU HAVE THOUGHTS OF HURTING YOURSELF OR SOMEONE ELSE? NO . ARE YOU ABUSED, NEGLECTED, OR IN AN UNSAFE ENVIRONMENT? NO . ENDOCRINOLOGY: ARE YOU DIABETIC? NO . OTHER: DO YOU NEED ANY PRESCRIPTIONS? YES . IF YES, PLEASE LIST: PERCOCET, VALIUM, AND TIZANIDINE . ANY NEW PROBLEMS WITH YOUR MEDICATIONS? NO . WHEN DID YOU LAST EAT? ____ . WHEN DID YOU LAST DRINK? ____ . WHAT DID YOU LAST DRINK? ____ . NAME OF PERSON DRIVING YOU HOME? ____ . DO YOU HAVE ANY OTHER QUESTIONS OR CONCERNS NO . PSYCHOLOGY: ANXIETY WORKING ON GETTING BETTER CONTROL . VITAL SIGNS WT 234.6 LBS, HT 62 IN, BMI 42.90 INDEX, BP 122/79 MM HG, HR 87 /MIN, RR 16 /MIN, TEMP 98.1 F, OXYGEN SAT % 98%, NA INITIALS TL 1351, REVIEWED BY: HARI. EXAMINATION GENERAL EXAMINATION: PSYCHALERT , ORIENTED X 3 , APPROPRIATE MOOD AND AFFECT . LUNGS:CLEAR TO AUSCULTATION BILATERALLY. HEART:HEART RATE REGULAR. MUSCULOSKELETAL:MILD TENDERNESS OVER RIGHT SIJ. AND RIGHT LUMBAR PARAVERTEBRAL MUSCLES. TRIGGER POINTS AND TIGHT FIBROUS BANDS IDENTIFIED OVER LUMBAR MUSCLES WITH RESTRICTION IN ROM WITH FLEXION/EXTENSION AND ROTATION NOTED.:, RISES EASILY TO STANDING POSITION. POSTURE UPRIGHT. GAIT NONANTALGIC. ASSESSMENTS SACROILIITIS - M46.1 (PRIMARY) LUMBAR RADICULOPATHY - M54.16 LUMBAR DISC DISPLACEMENT WITHOUT MYELOPATHY - M51.26 TREATMENT SACROILIITIS REFILL VALIUM TABLET, 5 MG, 1 TABLET, ORALLY, 3X/DAY NEEDED FOR SPASM OR ANXIETY MDD=2, 30 DAYS, 45, REFILLS 0 REFILL PERCOCET TABLET, 5-325 MG, 1 TABLET NEEDED, ORALLY, EVERY 8 HRS PRN PAIN MDD=3, 30 DAY(S), 30, REFILLS 0 NOTES: WALK TOLERATED. CLINICAL NOTES: ISTOP REGISTRY REVIEWED AND DEMNOSTRATES COMPLLIANCE. BRINGS IN MEDICATIONS WHICH IS APPROPRIATE FOR WHAT WAS DISPENSED. RECENT URINE TOXICOLOGY REVIEWED. NO UNAUTHORIZED MEDICATIONS. NO ILLICIT SUBSTANCES AND PRESCRIBED MEDICATIONS WERE PRESENT. PROCEDURE CODES FA211 ESTABILISHED PATIENT [facility] FACILITY CHARGE DISPOSITION & COMMUNICATION FOLLOW UP 1 MONTH (REASON: BACK) ELECTRONICALLY SIGNED BY OTTONIEL WADDELL ON 06/01/2017 AT 11:24 AM EDT DISCLAIMER : THIS IS A VISIT SUMMARY EXTRACTED FROM THE [employer] CHART. IT IS NOT A COPY OF THE [employer] PROGRESS NOTE. JEREL
== END ==
LOC: M PAIN 14:00
PROVIDERS: ATTEND Nurse Practitioner Family
DX: M46.1 Sacroiliitis, not elsewhere classified (principal); M54.16 Radiculopathy, lumbar region; M51.26 Other intervertebral disc displacement, lumbar region; Z79.891 Long term (current) use of opiate analgesic; Z79.899 Other long term (current) drug therapy; Z91.040 Latex allergy status; Z91.041 Radiographic dye allergy status; Z91.018 Allergy to other foods; Z88.8 Allergy status to other drugs, medicaments and biological substances; J30.9 Allergic rhinitis, unspecified

== ENCOUNTER → 2017-06-10 | Outpatient (CLI) | payer OTHER ==
--- NOTE | 2017-07-11 23:52 | ECWPNPC ---
PATIENT NAME: NATALIE REMY : 1985 GENDER: FEMALE VISIT DATE: 06/10/2017 DISCHARGE DATE: 06/10/17 1612 VISIT LOCKED DATE TIME: PHYSICIAN: MICHAEL UPTON RESOURCE: MICHAEL UPTON REASON FOR APPOINTMENT 1. BACK HISTORY OF PRESENT ILLNESS HISTORY OF PRESENT ILLNESS: PAIN THE PATIENT DESCRIBES THE PAIN... FALL RISK SCREENING: SCREENING :NO FALLS IN THE PAST YEAR TODAY'S VISIT: NOTES: RATES PAIN TODAY 6-06/01 DESCRIBES PAIN ASCONSTANT, ACHING, THROBBING AND SORE. NOTES WORST OF PAIN IN LOW BACK RIGHT SIDE. . CURRENT MEDICATIONS TAKING RANITIDINE HCL 150 MG CAPSULE 1 CAPSULE ORALLY TWICE A DAY TAKING VENTOLIN HFA 108 (90 BASE) MCG/ACT AEROSOL SOLUTION 2 PUFFS NEEDED INHALATION EVERY 4 HRS TAKING TOPAMAX 100 100MG TABLET ORAL TWICE DAILY TAKING MAXALT 10 MG TABLET 1 TABLET NEEDED ONE TIME ORALLY ONCE A DAY TAKING LORATADINE 10 MG TABLET 1 TABLET ORALLY ONCE A DAY TAKING INDERAL 20 MG 10MG TAB PO BID TAKING TIZANIDINE HCL 4 MG TABLET 1 TABLET NEEDED ORALLY THREE TIMES A DAY TAKING GABAPENTIN 800 MG TABLET 1 CAPSULE ORALLY THREE TIMES DAILY TAKING MOBIC 15 MG TABLET 1 TABLET ORALLY ONCE A DAY PRN FOR PAIN TAKING VENLAFAXINE HCL ER 150 MG TABLET EXTENDED RELEASE 24 HOUR 1 TABLET WITH FOOD ORALLY ONCE A DAY TAKING DIVALPROEX SODIUM 500 MG TABLET DELAYED RELEASE 2 TAB ORALLY DAILY TAKING TRAZODONE HCL 100 MG TABLET 1 TABLET AT BEDTIME ORALLY ONCE A DAY TAKING VALIUM 5 MG TABLET 1 TABLET ORALLY 3X/DAY NEEDED FOR SPASM OR ANXIETY MDD=2 TAKING PERCOCET 5-325 MG TABLET 1 TABLET NEEDED ORALLY EVERY 8 HRS PRN PAIN MDD=3 NOT-TAKING SOMA 350 MG TABLET 1 TABLET NEEDED ORALLY NEEDED BEFORE BEDTIME FOR SPASMS AND PAIN MDD=1, NOTES: [id number] NOT-TAKING TRILEPTAL 600 MG TABLET ORALLY TWICE A DAY NOT-TAKING SUMATRIPTAN SUCCINATE 50 MG TABLET 1 TABLET NEEDED ORALLY TWICE A DAY NOT-TAKING CELEXA 10 MG TABLET 1 TABLET ORALLY ONCE A DAY NOT-TAKING BUSPIRONE HCL 30 MG TABLET 1 TABLET ORALLY TWICE A DAY, NOTES: 05/22/16 AT 0100 NOT-TAKING WELLBUTRIN 75 MG TABLET 200 MG ORALLY DAILY NOT-TAKING IBUPROFEN 800 MG TABLET 1 TABLET ORALLY WITH FOOD THREE TIMES A DAY NOT-TAKING OMEPRAZOLE 20 MG CAPSULE DELAYED RELEASE ORALLY ONCE A DAY, NOTES: 05/22/16 AT 0100 NOT-TAKING NAPROSYN 250 MG TABLET 1 TABLET ORALLY TWICE A DAY MEDICATION LIST REVIEWED AND RECONCILED WITH THE PATIENT PAST MEDICAL HISTORY FIBROMYALGIA BIPOLAR HIGH CHOLESTEROL VIT D DEFICIENCY MIGRANE GERD SINUSITIS HEMORRHOIDS ASTHMA ALLERGIES LATEX: HIVES: ALLERGY IV CONTRAST DYE: HIVES: ALLERGY STRAWBERRIES: THROAT CLOSES: ALLERGY PINEAPPLE: THROAT CLOSES: ALLERGY SEASONAL: SINUS CONGESTION: ALLERGY CYMBALTA: DIARRHEA: SIDE EFFECTS REVIEW OF SYSTEMS REVIEWED BY: PROVIDER: MICHAEL SCHULER . CONSTITUTIONAL: ANY CHANGE IN YOUR MEDICAL CONDITION? NO . CHILLS NO . FEVER NO . INFECTION: DO YOU HAVE NEW INFECTIONS? NO . DO YOU HAVE HISTORY OF MRSA? NO . MUSCULOSKELETAL: ANY NEW PATTERNS OF PAIN OR NUMBNESS? NO . GASTROENTEROLOGY: ANY NEW CHANGE IN BOWEL CONTROL? NO . GENITOURINARY: ANY NEW CHANGE IN BLADDER CONTROL? NO . IS THERE A CHANCE YOU COULD BE ? NO . HEMATOLOGY/LYMPH: DO YOU TAKE ANY BLOOD THINNERS? (FOR EXAMPLE- COUMADIN, PLAVIX, AGGRENOX, PLATEL, PRADAXA, OR XARELTO) NO . WHEN WAS YOUR LAST DOSE? DATE: TIME: . NEUROLOGY: HAVE YOU FALLEN IN THE PAST 6 MONTHS? NO . ANY NEW EXTREMITY NUMBNESS OR WEAKNESS? NO . CARDIOLOGY: DO YOU HAVE A PACEMAKER OR DEFIBRILLATOR? NO . RESPIRATORY: HAVE YOU BEEN SICK IN THE PAST WEEK? NO . FEVER NO . FLU LIKE SYMPTOMS? NO . COUGH NO . INTEGUMENTARY: DO YOU HAVE ANY RASHES OR OPEN SORES? NO . ALLERGIC/IMMUNO: ARE YOU ALLERGIC TO SHELLFISH OR IV DYE? YES, IV DYE . ANY NEW ALLERGIES? NO . PSYCHIATRIC: DO YOU HAVE THOUGHTS OF HURTING YOURSELF OR SOMEONE ELSE? NO . ARE YOU ABUSED, NEGLECTED, OR IN AN UNSAFE ENVIRONMENT? NO . ENDOCRINOLOGY: ARE YOU DIABETIC? NO . OTHER: DO YOU NEED ANY PRESCRIPTIONS? NO . IF YES, PLEASE LIST: ____ . ANY NEW PROBLEMS WITH YOUR MEDICATIONS? NO . WHEN DID YOU LAST EAT? ____ . WHEN DID YOU LAST DRINK? ____ . WHAT DID YOU LAST DRINK? ____ . NAME OF PERSON DRIVING YOU HOME? ____ . DO YOU HAVE ANY OTHER QUESTIONS OR CONCERNS NO . VITAL SIGNS WT 230.6 LBS, HT 62 IN, BMI 42.17 INDEX, BP 134/81 MM HG, HR 87 /MIN, RR 16 /MIN, TEMP 98.3 F, OXYGEN SAT % 99%, NA INITIALS SC 15:40, REVIEWED BY: GAYLE. EXAMINATION GENERAL EXAMINATION: PSYCHALERT , ORIENTED X 3 , EXTREMELY ANXIOUS. LUNGS:CLEAR TO AUSCULTATION BILATERALLY. HEART:HEART RATE REGULAR. MUSCULOSKELETAL:MILD TENDERNESS OVER RIGHT SIJ. AND RIGHT LUMBAR PARAVERTEBRAL MUSCLES. TRIGGER POINTS AND TIGHT FIBROUS BANDS IDENTIFIED OVER LUMBAR MUSCLES WITH RESTRICTION IN ROM WITH FLEXION/EXTENSION AND ROTATION NOTED.:, RISES EASILY TO STANDING POSITION. POSTURE UPRIGHT. GAIT NONANTALGIC. ASSESSMENTS SACROILIITIS - M46.1 (PRIMARY) LUMBAR RADICULOPATHY - M54.16 LUMBAR DISC DISPLACEMENT WITHOUT MYELOPATHY - M51.26 TREATMENT SACROILIITIS REFILL TIZANIDINE HCL TABLET, 4 MG, 1 TABLET NEEDED, ORALLY, THREE TIMES A DAY, 30 DAY(S), 90 TABLET, REFILLS 2 REFILL PERCOCET TABLET, 5-325 MG, 1 TABLET NEEDED, ORALLY, EVERY 8 HRS PRN PAIN MDD=3, 30 DAY(S), 30, REFILLS 0 REFILL VALIUM TABLET, 5 MG, 1 TABLET, ORALLY, 3X/DAY NEEDED FOR SPASM OR ANXIETY MDD=2, 30 DAYS, 45, REFILLS 0 REFILL RANITIDINE HCL CAPSULE, 150 MG, 1 CAPSULE, ORALLY, TWICE A DAY, 30 DAY(S), 60 CAPSULE, REFILLS 1 NOTES: FOLLOW UP WITH EKTA OSMAN AND SHOULDER ROLLSCOUNT BLESSINGS WHEN WORRIED. PROCEDURE CODES FA211 ESTABILISHED PATIENT [facility] CHARGE DISPOSITION & COMMUNICATION FOLLOW UP ONE MONTH (REASON: AMAURY- NEED LAST OFFICE NOTES FROM [facility]OS[facility] CORTES/JIGNESH'S OFFICE) ELECTRONICALLY SIGNED BY OTTONIEL WADDELL ON 07/09/2017 AT 07:16 PM EDT DISCLAIMER : THIS IS A VISIT SUMMARY EXTRACTED FROM THE [employer] CHART. IT IS NOT A COPY OF THE [employer] PROGRESS NOTE. JEREL
== END ==
LOC: M PAIN 14:40
PROVIDERS: ATTEND Nurse Practitioner Family
DX: M46.1 Sacroiliitis, not elsewhere classified (principal); M54.16 Radiculopathy, lumbar region; M51.26 Other intervertebral disc displacement, lumbar region; Z79.891 Long term (current) use of opiate analgesic; Z79.899 Other long term (current) drug therapy; Z91.040 Latex allergy status; Z91.041 Radiographic dye allergy status; Z91.018 Allergy to other foods; Z88.8 Allergy status to other drugs, medicaments and biological substances; J30.9 Allergic rhinitis, unspecified

== ENCOUNTER 2017-06-26 04:14 | Emergency (ER) | payer OTHER ==
[~2017-06-26] VITALS: Ht 157.5 cm; Wt 102.0 kg
[~2017-06-26 04:14] MED LIST changes: -CARA1TAB6 PO; -DEPA1TAB3 PO; -DOXE10CA PO; -ERYTOIN8 OS; -VENL150C43 PO
[2017-06-26] MEDS ORDERED: ERYTOIN8 OS (06:14)
[2017-06-26] MEDS ORDERED: HYDROmorphone HCL 1 MG/ML SYRINGE (J1170) IM ONE (06:15)
[2017-06-26 07:00] VITALS: BP 128/86
== END 2017-06-26 07:09 | disposition home or self-care (01) ==
LOC: M ED 04:14
DX: G43.909 Migraine, unspecified, not intractable, without status migrainosus (principal); H00.016 Hordeolum externum left eye, unspecified eyelid; J45.909 Unspecified asthma, uncomplicated; Z87.442 Personal history of urinary calculi; F17.200 Nicotine dependence, unspecified, uncomplicated; Z79.899 Other long term (current) drug therapy; Z91.041 Radiographic dye allergy status; Z91.040 Latex allergy status; Z91.018 Allergy to other foods; Z88.8 Allergy status to other drugs, medicaments and biological substances
CPT/HCPCS: 96372; 99282; J1170

== ENCOUNTER 2017-07-01 09:13 | Emergency (ER) | payer OTHER ==
[~2017-07-01] VITALS: Ht 157.5 cm; Wt 102.3 kg
[~2017-07-01 09:13] MED LIST changes: +ERYTOIN8 OS
[2017-07-01] MEDS ORDERED: KETOROLAC 30 MG/ML VIAL (J1885) IV ONE (09:45)
[2017-07-01] MEDS ORDERED: ONDANSETRON 4MG/2ML VIAL (J2405) IV ONE (09:45)
[2017-07-01] MEDS ORDERED: PANTOPRAZOLE 40MG INJ (PROTONIX) (C9113) IV ONE (09:45)
[2017-07-01] MEDS ORDERED: NS 1,000 ML IV ONE (09:45)
[2017-07-01 10:12] LABS: BASO # 0.1 K/mm3 (0.0-0.2); BASO % 0.6 % (0.0-1.0); EOS # 0.3 K/mm3 (0.0-0.50); EOS % 3.1 % (0.0-3.0); LARGE UNSTAINED CELL # 0.2 K/mm3 (0.0-0.4); LARGE UNSTAINED CELL % 1.7 % (0.0-4.0); LYMPH # 3.2 K/mm3 (1.5-4.5); LYMPH % 27.6 % (24.0-44.0); MEAN CORPUSCULAR HEMOGLOBIN 33.4 pg (27.0-33.0); MEAN CORPUSCULAR HGB CONC 34.9 g/dl (32.0-36.5); MEAN CORPUSCULAR VOLUME 95.8 fl (80.0-96.0); MONO # 0.8 K/mm3 (0.0-0.8); MONO % 7.5 % (0.0-5.0); NEUTROPHILS # 6.5 K/mm3 (1.8-7.7); NEUTROPHILS % 59.5 % (36.0-66.0); PLATELET COUNT, AUTOMATED 301 k/mm3 (150-450)
[2017-07-01 10:48] LABS: ALBUMIN 4.1 GM/DL (3.2-5.2); ALBUMIN/GLOBULIN RATIO 1.03 (1.00-1.93); ALKALINE PHOSPHATASE 77 U/L (45-117); ALT/SGPT 37 U/L (12-78); ANION GAP 12 MEQ/L (8-16); AST/SGOT 24 U/L (15-37); BILIRUBIN,DIRECT 0.2 MG/DL (0.0-0.2); BILIRUBIN,TOTAL 0.6 MG/DL (0.2-1.0); BLOOD UREA NITROGEN 15 MG/DL (7-18); CALCIUM LEVEL 9.6 MG/DL (8.5-10.1); CARBON DIOXIDE LEVEL 19 MEQ/L (21-32); CHLORIDE LEVEL 110 MEQ/L (98-107); GLOMERULAR FILTRATION RATE > 60.0 (>60); GLUCOSE, FASTING 106 MG/DL (70-105); POTASSIUM SERUM 3.7 MEQ/L (3.5-5.1); SODIUM LEVEL 141 MEQ/L (136-145); TOTAL PROTEIN 8.1 GM/DL (6.4-8.2)
[2017-07-01] MEDS ORDERED: GI COCKTAIL 50ML BTL(HYOSCYAMINE/MAALOX/LIDOCAINE VISCOUS)(1:3:1) PO ONE (11:30)
[2017-07-01 12:18] VITALS: BP 105/60
[2017-07-01] MEDS ORDERED: CARA1TAB6 PO (12:26)
[2017-07-01] MEDS ORDERED: PROT1TAB2 PO (12:26)
== END 2017-07-01 12:40 | disposition home or self-care (01) ==
LOC: M ED 09:13
DX: K21.9 Gastro-esophageal reflux disease without esophagitis (principal); E11.9 Type 2 diabetes mellitus without complications; Z87.442 Personal history of urinary calculi; F41.9 Anxiety disorder, unspecified; F32.9 Major depressive disorder, single episode, unspecified; F43.10 Post-traumatic stress disorder, unspecified; F17.200 Nicotine dependence, unspecified, uncomplicated; Z79.899 Other long term (current) drug therapy; Z91.041 Radiographic dye allergy status; Z91.040 Latex allergy status; Z91.018 Allergy to other foods; Z88.8 Allergy status to other drugs, medicaments and biological substances; Z91.09 Other allergy status, other than to drugs and biological substances
CPT/HCPCS: 80048; 80076; 81001; 83690; 85025; 87086; 96361; 96374; 96375; 99283; C9113; J1885; J2405

== ENCOUNTER 2017-07-05 00:54 | Emergency (ER) | payer OTHER ==
[~2017-07-05 00:54] MED LIST changes: +CARA1TAB6 PO
[2017-07-05 01:18] VITALS: BP 123/82
== END 2017-07-05 05:16 | disposition left against medical advice (07) ==
LOC: M ED 00:54
DX: R10.9 Unspecified abdominal pain (principal); Z53.21 Procedure and treatment not carried out due to patient leaving prior to being seen by health care provider

== ENCOUNTER → 2017-07-09 | Outpatient (CLI) | payer OTHER ==
[~2017-07-09] MED LIST changes: +DEPA1TAB3 PO; +DOXE10CA PO; +VENL150C43 PO
--- NOTE | 2017-07-25 00:15 | ECWPNPC ---
PATIENT NAME: NATALIE REMY : 1985 GENDER: FEMALE VISIT DATE: 07/09/2017 DISCHARGE DATE: 07/09/17 1406 VISIT LOCKED DATE TIME: PHYSICIAN: MICHAEL UPTON RESOURCE: MICHAEL UPTON REASON FOR APPOINTMENT 1. BACK HISTORY OF PRESENT ILLNESS HISTORY OF PRESENT ILLNESS: PAIN THE PATIENT DESCRIBES THE PAIN... FALL RISK SCREENING: SCREENING :NO FALLS IN THE PAST YEAR TODAY'S VISIT: NOTES: RATES PAIN TODAY 6-7/10. DESCRIBES PAIN CONSTANT, ACHING, SHARP AND STABBINGTHROBBING AND SHOOTING. PAIN IS CENTERED LOWBACK RIGHT SIDE . REPORTS HER MEDICATIONS ARE HELPFUL AND THAT SHE HAS NO ADVERSE SIDE EFFECTS.. CURRENT MEDICATIONS TAKING VENTOLIN HFA 108 (90 BASE) MCG/ACT AEROSOL SOLUTION 2 PUFFS NEEDED INHALATION EVERY 4 HRS TAKING TOPAMAX 100 100MG TABLET ORAL TWICE DAILY TAKING MAXALT 10 MG TABLET 1 TABLET NEEDED ONE TIME ORALLY ONCE A DAY TAKING LORATADINE 10 MG TABLET 1 TABLET ORALLY ONCE A DAY TAKING INDERAL 20 MG 10MG TAB PO BID TAKING GABAPENTIN 800 MG TABLET 1 CAPSULE ORALLY THREE TIMES DAILY TAKING MOBIC 15 MG TABLET 1 TABLET ORALLY ONCE A DAY PRN FOR PAIN TAKING VENLAFAXINE HCL ER 150 MG TABLET EXTENDED RELEASE 24 HOUR 1 TABLET WITH FOOD ORALLY ONCE A DAY TAKING DIVALPROEX SODIUM 500 MG TABLET DELAYED RELEASE 2 TAB ORALLY DAILY TAKING TRAZODONE HCL 100 MG TABLET 1 TABLET AT BEDTIME ORALLY ONCE A DAY TAKING TIZANIDINE HCL 4 MG TABLET 1 TABLET NEEDED ORALLY THREE TIMES A DAY TAKING PERCOCET 5-325 MG TABLET 1 TABLET NEEDED ORALLY EVERY 8 HRS PRN PAIN MDD=3 TAKING VALIUM 5 MG TABLET 1 TABLET ORALLY 3X/DAY NEEDED FOR SPASM OR ANXIETY MDD=2 TAKING CARAFATE 1 GM TABLET 1 TABLET ON AN EMPTY STOMACH ORALLY 4 TIMES A DAY TAKING PROTONIX 40 MG TABLET DELAYED RELEASE 1 TABLET ORALLY ONCE A DAY NOT-TAKING RANITIDINE HCL 150 MG CAPSULE 1 CAPSULE ORALLY TWICE A DAY NOT-TAKING SOMA 350 MG TABLET 1 TABLET NEEDED ORALLY NEEDED BEFORE BEDTIME FOR SPASMS AND PAIN MDD=1, NOTES: 12-11-16 2100 NOT-TAKING TRILEPTAL 600 MG TABLET ORALLY TWICE A DAY NOT-TAKING SUMATRIPTAN SUCCINATE 50 MG TABLET 1 TABLET NEEDED ORALLY TWICE A DAY NOT-TAKING CELEXA 10 MG TABLET 1 TABLET ORALLY ONCE A DAY NOT-TAKING BUSPIRONE HCL 30 MG TABLET 1 TABLET ORALLY TWICE A DAY, NOTES: 05/22/16 AT 0100 NOT-TAKING WELLBUTRIN 75 MG TABLET 200 MG ORALLY DAILY NOT-TAKING IBUPROFEN 800 MG TABLET 1 TABLET ORALLY WITH FOOD THREE TIMES A DAY NOT-TAKING OMEPRAZOLE 20 MG CAPSULE DELAYED RELEASE ORALLY ONCE A DAY, NOTES: 05/22/16 AT 0100 NOT-TAKING NAPROSYN 250 MG TABLET 1 TABLET ORALLY TWICE A DAY MEDICATION LIST REVIEWED AND RECONCILED WITH THE PATIENT PAST MEDICAL HISTORY FIBROMYALGIA BIPOLAR HIGH CHOLESTEROL VIT D DEFICIENCY MIGRANE GERD SINUSITIS HEMORRHOIDS ASTHMA ALLERGIES LATEX: HIVES: ALLERGY IV CONTRAST DYE: HIVES: ALLERGY STRAWBERRIES: THROAT CLOSES: ALLERGY PINEAPPLE: THROAT CLOSES: ALLERGY SEASONAL: SINUS CONGESTION: ALLERGY CYMBALTA: DIARRHEA: SIDE EFFECTS SOCIAL HISTORY GENERAL: TOBACCO USE ARE YOU A:CURRENT SMOKER HOW MANY CIGARETTES A DAY DO YOU SMOKE?11-20 PATIENT COUNSELED ON THE DANGERS OF TOBACCO USE AND URGED TO QUIT:07/09/2017 ARE YOU INTERESTED IN QUITTING?THINKING ABOUT QUITTING COUNSELED THE PATIENT ON SMOKING CESSATION, EDUCATION [id number]/17/2017 ROMAN CATHOLIC [id number] NONE LEARNING BARRIERS / SPECIAL NEEDS BARRIERS TO LEARNING?NO HEARING IMPAIRED?NO VISION IMPAIRED?YES :CORRECTIVE LENSES COGNITIVELY IMPAIRED?NO READINESS TO LEARN?YES LEARNING PREFERENCES?NO LEARNING CAPABILITIES PRESENT?YES EMOTIONAL BARRIERS?NO SPECIAL DEVICES?NO BUFFER CHROME NEEDED?NO PAIN CLINIC PFS, CLERGY, PUBLIC HEALTH REFERRALS PFS REFERRAL NEEDED?NO CLERGY REFERRAL NEEDED?NO PUBLIC HEALTH REFERRAL NEEDED?NO WAS THE PROVIDER NOTIFIED OF ANY PERTINENT INFO?NO HAS THE PATIENT BEEN EDUCATED REGARDING HIS/HER PLAN OF CARE?YES HAS THE PATIENT BEEN EDUCATED REGARDING PAIN, THE RISK FOR PAIN, THE IMPORTANCE OF EFFECTIVE PAIN MANAGEMENT, AND THE PAIN ASSESSMENT PROCESS?YES PATIENT: ____. REVIEW OF SYSTEMS REVIEWED BY: PROVIDER: MICHAEL SCHULER . CONSTITUTIONAL: ANY CHANGE IN YOUR MEDICAL CONDITION? YES RIGHT UPPER QUADRANT ABDOMINAL PAIN. WAS SEEN IN ER AND DIAGNOSED WITH GERD . CHILLS NO . FEVER NO . INFECTION: DO YOU HAVE NEW INFECTIONS? NO . DO YOU HAVE HISTORY OF MRSA? NO . MUSCULOSKELETAL: ANY NEW PATTERNS OF PAIN OR NUMBNESS? NO . GASTROENTEROLOGY: GENERAL IS COMPLAINING OF PAIN AND SWELLING IN RIGHT SIDE OF ABDOMEN WITH NAUSEA AND VOMITING AND DIARRHEA . ANY NEW CHANGE IN BOWEL CONTROL? NO . GENITOURINARY: ANY NEW CHANGE IN BLADDER CONTROL? NO . IS THERE A CHANCE YOU COULD BE ? NO . HEMATOLOGY/LYMPH: DO YOU TAKE ANY BLOOD THINNERS? (FOR EXAMPLE- COUMADIN, PLAVIX, AGGRENOX, PLATEL, PRADAXA, OR XARELTO) NO . WHEN WAS YOUR LAST DOSE? DATE: TIME: . NEUROLOGY: HAVE YOU FALLEN IN THE PAST 6 MONTHS? NO . ANY NEW EXTREMITY NUMBNESS OR WEAKNESS? NO . CARDIOLOGY: DO YOU HAVE A PACEMAKER OR DEFIBRILLATOR? NO . RESPIRATORY: HAVE YOU BEEN SICK IN THE PAST WEEK? NO . FEVER NO . FLU LIKE SYMPTOMS? NO . COUGH NO . INTEGUMENTARY: DO YOU HAVE ANY RASHES OR OPEN SORES? NO . ALLERGIC/IMMUNO: ARE YOU ALLERGIC TO SHELLFISH OR IV DYE? YES . ANY NEW ALLERGIES? NO . PSYCHIATRIC: DO YOU HAVE THOUGHTS OF HURTING YOURSELF OR SOMEONE ELSE? NO . ARE YOU ABUSED, NEGLECTED, OR IN AN UNSAFE ENVIRONMENT? NO . ENDOCRINOLOGY: ARE YOU DIABETIC? NO . OTHER: DO YOU NEED ANY PRESCRIPTIONS? YES . IF YES, PLEASE LIST: VALIUM AND PERCOCET . ANY NEW PROBLEMS WITH YOUR MEDICATIONS? NO . WHEN DID YOU LAST EAT? ____ . WHEN DID YOU LAST DRINK? ____ . WHAT DID YOU LAST DRINK? ____ . NAME OF PERSON DRIVING YOU HOME? ____ . DO YOU HAVE ANY OTHER QUESTIONS OR CONCERNS NO . VITAL SIGNS WT 224.4 LBS, HT 62 IN, BMI 41.04 INDEX, BP 130/83 MM HG, HR 89 /MIN, RR 16 /MIN, TEMP 98.0 F, OXYGEN SAT % 98%, NA INITIALS AW 1332, REVIEWED BY: CS. EXAMINATION GENERAL EXAMINATION: PSYCHALERT , ORIENTED X 3 , EXTREMELY ANXIOUS. LUNGS:CLEAR TO AUSCULTATION BILATERALLY. HEART:HEART RATE REGULAR. MUSCULOSKELETAL:TRIGGER POINTS AND TIGHT FIBROUS BANDS IDENTIFIED OVER LUMBAR MUSCLES WITH RESTRICTION IN ROM WITH FLEXION/EXTENSION AND ROTATION NOTED.:, RISES EASILY TO STANDING POSITION. POSTURE UPRIGHT. GAIT NONANTALGIC. 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 TAKE CARAFATE 1/2 HOUR BEFORE MEALS. OK TO MELT IN SMALL AMOUNT OF WATERTAKE NO MORE THAN 4 TUMS PER DAY. CLINICAL NOTES: ISTOP REGISTRY REVIEWED AND DEMNOSTRATES COMPLLIANCE. BRINGS IN MEDICATIONS WHICH IS APPROPRIATE FOR WHAT WAS DISPENSED. RECENT URINE TOXICOLOGY REVIEWED. NO UNAUTHORIZED MEDICATIONS. NO ILLICIT SUBSTANCES AND PRESCRIBED MEDICATIONS WERE PRESENT. PROCEDURE CODES FA211 ESTABILISHED PATIENT [facility] CHARGE DISPOSITION & COMMUNICATION FOLLOW UP 1 MONTH (REASON: BACK PAIN) ELECTRONICALLY SIGNED BY OTTONIEL WADDELL ON 07/24/2017 AT 06:47 PM EDT DISCLAIMER : THIS IS A VISIT SUMMARY EXTRACTED FROM THE [employer] CHART. IT IS NOT A COPY OF THE [employer] PROGRESS NOTE. JEREL
== END ==
LOC: M PAIN 13:00
PROVIDERS: ATTEND Nurse Practitioner Family
DX: G89.29 Other chronic pain (principal); M46.1 Sacroiliitis, not elsewhere classified; M54.16 Radiculopathy, lumbar region; M51.26 Other intervertebral disc displacement, lumbar region; F31.9 Bipolar disorder, unspecified; E55.9 Vitamin D deficiency, unspecified; G43.909 Migraine, unspecified, not intractable, without status migrainosus; K21.9 Gastro-esophageal reflux disease without esophagitis; F17.210 Nicotine dependence, cigarettes, uncomplicated; Z91.040 Latex allergy status; Z91.041 Radiographic dye allergy status; Z91.018 Allergy to other foods; J30.2 Other seasonal allergic rhinitis; Z88.8 Allergy status to other drugs, medicaments and biological substances; Z79.1 Long term (current) use of non-steroidal anti-inflammatories (NSAID); Z79.891 Long term (current) use of opiate analgesic; Z79.899 Other long term (current) drug therapy

== ENCOUNTER → 2017-07-22 | Outpatient (CLI) | payer OTHER ==
--- NOTE | 2017-07-22 16:51 | REP ---
Right upper quadrant sonography: History: However quadrant pain. Nausea vomiting and diarrhea. Comparison study: Comparison CT study April 24, 2015. Findings: Scanning through the right upper quadrant of the abdomen demonstrates a normal sized, thin-walled gallbladder without evidence of stone or polyp. There is some tenderness to scanning over the gallbladder. Common bile duct is normal measuring 0.4 cm in greatest diameter. No focal liver lesion is seen. Liver size is normal. There is evidence of mild diffuse fatty infiltration. No pancreatic abnormality is observed. No right renal abnormality is seen. There is no evidence of ascites. The right kidney measures 11.1 x 4.1 x 3.8 cm. Impression: Tenderness to scanning over the gallbladder and evidence of mild diffuse fatty infiltration of the liver, otherwise negative right upper quadrant sonography. Signed by Benjamín Brown MD 07/22/2017 04:42 P
== END ==
LOC: M RAD 08:09
PROVIDERS: ATTEND Physician Assistant Medical
DX: R19.7 Diarrhea, unspecified (principal); R10.9 Unspecified abdominal pain

== ENCOUNTER → 2017-08-06 | Outpatient (CLI) | payer OTHER ==
--- NOTE | 2017-08-22 23:21 | ECWPNPC ---
PATIENT NAME: NATALIE REMY : 1985 GENDER: FEMALE VISIT DATE: 08/06/2017 DISCHARGE DATE: 08/06/17 1458 VISIT LOCKED DATE TIME: PHYSICIAN: MICHAEL UPTON RESOURCE: MICHAEL UPTON REASON FOR APPOINTMENT 1. BACK PAIN HISTORY OF PRESENT ILLNESS HISTORY OF PRESENT ILLNESS: PAIN THE PATIENT DESCRIBES THE PAIN... FALL RISK SCREENING: SCREENING :NO FALLS IN THE PAST YEAR TODAY'S VISIT: NOTES: RATES PAIN TODAY 8-9/10. NOTES PAIN CENTERD IN RIGHT LOW BACK. INCREASED PAIN SHE MOVED HER FURNITURE BY HERSELF. HAS LOST SOME MORE WEIGHT. . CURRENT MEDICATIONS TAKING VENTOLIN HFA 108 (90 BASE) MCG/ACT AEROSOL SOLUTION 2 PUFFS NEEDED INHALATION EVERY 4 HRS TAKING TOPAMAX 100 100MG TABLET ORAL TWICE DAILY TAKING MAXALT 10 MG TABLET 1 TABLET NEEDED ONE TIME ORALLY ONCE A DAY TAKING INDERAL 20 MG 10MG TAB PO BID TAKING GABAPENTIN 800 MG TABLET 1 CAPSULE ORALLY THREE TIMES DAILY TAKING VENLAFAXINE HCL ER 150 MG TABLET EXTENDED RELEASE 24 HOUR 1 TABLET WITH FOOD ORALLY ONCE A DAY TAKING DIVALPROEX SODIUM 500 MG TABLET DELAYED RELEASE 2 TAB ORALLY DAILY TAKING TRAZODONE HCL 100 MG TABLET 1 TABLET AT BEDTIME ORALLY ONCE A DAY TAKING TIZANIDINE HCL 4 MG TABLET 1 TABLET NEEDED ORALLY THREE TIMES A DAY TAKING CARAFATE 1 GM TABLET 1 TABLET ON AN EMPTY STOMACH ORALLY 4 TIMES A DAY TAKING PROTONIX 40 MG TABLET DELAYED RELEASE 1 TABLET ORALLY ONCE A DAY TAKING ZOFRAN 8 MG TABLET 1 TABLET ORALLY Q 6 HRS PRN NAUSEA TAKING PERCOCET 5-325 MG TABLET 1 TABLET NEEDED ORALLY EVERY 8 HRS PRN PAIN MDD=3 TAKING VALIUM 5 MG TABLET 1 TABLET ORALLY 3X/DAY NEEDED FOR SPASM OR ANXIETY MDD=2 NOT-TAKING RANITIDINE HCL 150 MG CAPSULE 1 CAPSULE ORALLY TWICE A DAY NOT-TAKING SOMA 350 MG TABLET 1 TABLET NEEDED ORALLY NEEDED BEFORE BEDTIME FOR SPASMS AND PAIN MDD=1, NOTES: 12-11-162099 NOT-TAKING TRILEPTAL 600 MG TABLET ORALLY TWICE A DAY NOT-TAKING SUMATRIPTAN SUCCINATE 50 MG TABLET 1 TABLET NEEDED ORALLY TWICE A DAY NOT-TAKING CELEXA 10 MG TABLET 1 TABLET ORALLY ONCE A DAY NOT-TAKING BUSPIRONE HCL 30 MG TABLET 1 TABLET ORALLY TWICE A DAY, NOTES: 05/22/16 AT 0100 NOT-TAKING WELLBUTRIN 75 MG TABLET 200 MG ORALLY DAILY NOT-TAKING IBUPROFEN 800 MG TABLET 1 TABLET ORALLY WITH FOOD THREE TIMES A DAY NOT-TAKING OMEPRAZOLE 20 MG CAPSULE DELAYED RELEASE ORALLY ONCE A DAY, NOTES: 05/22/16 AT 0100 NOT-TAKING NAPROSYN 250 MG TABLET 1 TABLET ORALLY TWICE A DAY DISCONTINUED LORATADINE 10 MG TABLET 1 TABLET ORALLY ONCE A DAY MEDICATION LIST REVIEWED AND RECONCILED WITH THE PATIENT PAST MEDICAL HISTORY FIBROMYALGIA BIPOLAR HIGH CHOLESTEROL VIT D DEFICIENCY MIGRANE GERD SINUSITIS HEMORRHOIDS ASTHMA ALLERGIES LATEX: HIVES: ALLERGY IV CONTRAST DYE: HIVES: ALLERGY STRAWBERRIES: THROAT CLOSES: ALLERGY PINEAPPLE: THROAT CLOSES: ALLERGY SEASONAL: SINUS CONGESTION: ALLERGY CYMBALTA: DIARRHEA: SIDE EFFECTS SOCIAL HISTORY GENERAL: TOBACCO USE ARE YOU A:CURRENT SMOKER HOW MANY CIGARETTES A DAY DO YOU SMOKE?11- PATIENT COUNSELED ON THE DANGERS OF TOBACCO USE AND URGED TO QUIT:08/06/2017 ARE YOU INTERESTED IN QUITTING?THINKING ABOUT QUITTING COUNSELED THE PATIENT ON SMOKING CESSATION, EDUCATION [id number]/14/2017 CATHOLIC [id number] NONE LEARNING BARRIERS / SPECIAL NEEDS BARRIERS TO LEARNING?NO HEARING IMPAIRED?NO VISION IMPAIRED?YES :CORRECTIVE LENSES COGNITIVELY IMPAIRED?NO READINESS TO LEARN?YES LEARNING PREFERENCES?NO LEARNING CAPABILITIES PRESENT?YES EMOTIONAL BARRIERS?NO SPECIAL DEVICES?NO PASSENGER LOCOMOTIVE ENGINEER NEEDED?NO PAIN CLINIC PFS, CLERGY, PUBLIC HEALTH REFERRALS PFS REFERRAL NEEDED?NO CLERGY REFERRAL NEEDED?NO PUBLIC HEALTH REFERRAL NEEDED?NO WAS THE PROVIDER NOTIFIED OF ANY PERTINENT INFO?NO HAS THE PATIENT BEEN EDUCATED REGARDING HIS/HER PLAN OF CARE?YES HAS THE PATIENT BEEN EDUCATED REGARDING PAIN, THE RISK FOR PAIN, THE IMPORTANCE OF EFFECTIVE PAIN MANAGEMENT, AND THE PAIN ASSESSMENT PROCESS?YES PATIENT: ____. REVIEW OF SYSTEMS REVIEWED BY: PROVIDER: MICHAEL SCHULER . CONSTITUTIONAL: ANY CHANGE IN YOUR MEDICAL CONDITION? NO . CHILLS NO . FEVER NO . INFECTION: DO YOU HAVE NEW INFECTIONS? NO . DO YOU HAVE HISTORY OF MRSA? NO . MUSCULOSKELETAL: ANY NEW PATTERNS OF PAIN OR NUMBNESS? NO . GASTROENTEROLOGY: ANY NEW CHANGE IN BOWEL CONTROL? NO . GENITOURINARY: ANY NEW CHANGE IN BLADDER CONTROL? NO . IS THERE A CHANCE YOU COULD BE ? NO . HEMATOLOGY/LYMPH: DO YOU TAKE ANY BLOOD THINNERS? (FOR EXAMPLE- COUMADIN, PLAVIX, AGGRENOX, PLATEL, PRADAXA, OR XARELTO) NO . WHEN WAS YOUR LAST DOSE? DATE: TIME: . NEUROLOGY: HAVE YOU FALLEN IN THE PAST 6 MONTHS? NO . ANY NEW EXTREMITY NUMBNESS OR WEAKNESS? NO . CARDIOLOGY: DO YOU HAVE A PACEMAKER OR DEFIBRILLATOR? NO . RESPIRATORY: HAVE YOU BEEN SICK IN THE PAST WEEK? NO . FEVER NO . FLU LIKE SYMPTOMS? NO . COUGH NO . INTEGUMENTARY: DO YOU HAVE ANY RASHES OR OPEN SORES? NO . ALLERGIC/IMMUNO: ARE YOU ALLERGIC TO SHELLFISH OR IV DYE? YES . ANY NEW ALLERGIES? NO . PSYCHIATRIC: DO YOU HAVE THOUGHTS OF HURTING YOURSELF OR SOMEONE ELSE? NO . ARE YOU ABUSED, NEGLECTED, OR IN AN UNSAFE ENVIRONMENT? NO . ENDOCRINOLOGY: ARE YOU DIABETIC? NO . OTHER: DO YOU NEED ANY PRESCRIPTIONS? YES . IF YES, PLEASE LIST: ____VALIUM, PERCOCET . ANY NEW PROBLEMS WITH YOUR MEDICATIONS? NO . WHEN DID YOU LAST EAT? ____ . WHEN DID YOU LAST DRINK? ____ . WHAT DID YOU LAST DRINK? ____ . NAME OF PERSON DRIVING YOU HOME? ____ . DO YOU HAVE ANY OTHER QUESTIONS OR CONCERNS NO . HEENT: NO TROUBLE SWALLOWING, ENLARGED TONSILS - TO SEE ENT NEXT WEEK. . PSYCHOLOGY: ARE YOU RECEIVING COUNSELING? SEE COUNSELOR - IS ATTENDING A PANIC GROUP . VITAL SIGNS WT 221.2 LBS, HT 62 IN, BMI 40.45 INDEX, BP 119/63 MM HG, HR 109 /MIN, RR 16 /MIN, TEMP 98.2 F, OXYGEN SAT % 97%, SAFE IN ENV? (Y/N) YES, NA INITIALS SC 14:20, REVIEWED BY: LISSETTE. EXAMINATION GENERAL EXAMINATION: PSYCHALERT , ORIENTED X 3 , EXTREMELY ANXIOUS. LUNGS:CLEAR TO AUSCULTATION BILATERALLY. HEART:HEART RATE REGULAR. MUSCULOSKELETAL:TRIGGER POINTS AND TIGHT FIBROUS BANDS IDENTIFIED OVER LUMBAR MUSCLES WITH RESTRICTION IN ROM WITH FLEXION/EXTENSION AND ROTATION NOTED.:, RISES EASILY TO STANDING POSITION. POSTURE UPRIGHT. GAIT NONANTALGIC. ASSESSMENTS SACROILIITIS - M46.1 (PRIMARY) LUMBAR RADICULOPATHY - M54.16 LUMBAR DISC DISPLACEMENT WITHOUT MYELOPATHY - M51.26 TREATMENT SACROILIITIS NOTES: CONTINUE CURRENT MEDS. KEEP MEDS SECURED. CLINICAL NOTES: ISTOP REGISTRY REVIEWED AND DEMNOSTRATES COMPLLIANCE. (#[id number]) BRINGS IN MEDICATIONS WHICH IS APPROPRIATE FOR WHAT WAS DISPENSED. RECENT URINE TOXICOLOGY REVIEWED. NO UNAUTHORIZED MEDICATIONS. NO ILLICIT SUBSTANCES AND PRESCRIBED MEDICATIONS WERE PRESENT. PROCEDURE CODES FA211 ESTABILISHED PATIENT [facility] CHARGE DISPOSITION & COMMUNICATION FOLLOW UP 1 MONTH (REASON: BACK PAIN) ELECTRONICALLY SIGNED BY OTTONIEL WADDELL ON 08/22/2017 AT 09:25 PM EDT DISCLAIMER : THIS IS A VISIT SUMMARY EXTRACTED FROM THE [employer] CHART. IT IS NOT A COPY OF THE [employer] PROGRESS NOTE. JEREL
== END ==
LOC: M PAIN 14:00
PROVIDERS: ATTEND Nurse Practitioner Family
DX: G89.29 Other chronic pain (principal); M46.1 Sacroiliitis, not elsewhere classified; M54.16 Radiculopathy, lumbar region; M51.26 Other intervertebral disc displacement, lumbar region; F31.9 Bipolar disorder, unspecified; E78.00 Pure hypercholesterolemia, unspecified; E55.9 Vitamin D deficiency, unspecified; G43.909 Migraine, unspecified, not intractable, without status migrainosus; K21.9 Gastro-esophageal reflux disease without esophagitis; J45.909 Unspecified asthma, uncomplicated; F17.210 Nicotine dependence, cigarettes, uncomplicated; Z91.041 Radiographic dye allergy status; Z91.018 Allergy to other foods; Z88.8 Allergy status to other drugs, medicaments and biological substances; Z79.899 Other long term (current) drug therapy

== ENCOUNTER → 2017-08-10 | Outpatient (CLI) | payer OTHER ==
[~2017-08-10] MED LIST changes: +ISOVUE-370 76% 100ML VIAL (Q9967) As Ordered ONE; +READI-CAT 2 As Ordered ONE
--- NOTE | 2017-08-10 13:16 | REP ---
CT of the abdomen pelvis without IV contrast but with bowel contrast: Comparison 05/06/2014. The visualized lung downey are unremarkable. The unenhanced hepatic parenchyma, gallbladder, pancreas and spleen are unremarkable. The adrenals and unenhanced kidneys are unremarkable. The abdominal aorta is unremarkable. There is no bowel distension or obstruction. The mesentery is unremarkable. Pelvis: The appendix has a normal appearance. The uterus appears surgically absent compared to prior studies. The adnexa are unremarkable. The bladder is unremarkable. There is no adenopathy or ascites. The pelvic bowel loops are unremarkable. There is a small umbilical hernia containing omental fat but no bowel. This is unchanged. Impression: There is no bowel distension or obstruction. The appendix has a normal appearance. Appears to have been an interim hysterectomy. The vaginal cuff and adnexa are unremarkable. There is no ascites or adenopathy. The gallbladder and pancreas are unremarkable. There is a small fat-containing umbilical hernia. Signed by Chris Blum MD 08/10/2017 01:08 P
== END ==
LOC: M RAD 10:50
PROVIDERS: ATTEND Physician Assistant Medical
DX: R10.9 Unspecified abdominal pain (principal)

== ENCOUNTER 2017-09-02 20:42 | Emergency (ER) | payer OTHER ==
[~2017-09-02] VITALS: Ht 157.5 cm; Wt 102.9 kg
[~2017-09-02 20:42] MED LIST changes: -DEPA1TAB3 PO; -DOXE10CA PO; -ISOVUE-370 76% 100ML VIAL (Q9967) As Ordered ONE; -READI-CAT 2 As Ordered ONE; -VENL150C43 PO
[2017-09-02] MEDS ORDERED: DEPA1TAB3 PO (21:14)
[2017-09-02] MEDS ORDERED: DOXE10CA PO (21:14)
[2017-09-02] MEDS ORDERED: VENL150C43 PO (21:14)
[2017-09-02] MEDS ORDERED: diphenhydrAMINE INJ 50MG/ML VIAL (J1200) IV STA (22:49)
[2017-09-02] MEDS ORDERED: KETOROLAC TROMETHAMINE 10 MG TAB PO ONE (23:00)
[2017-09-02] MEDS ORDERED: NS 1,000 ML IV ONE (23:00)
[2017-09-02] MEDS ORDERED: METOCLOPRAMIDE INJ 10MG/2ML VIAL (J2765) IV ONE (23:00)
[2017-09-02 23:50] VITALS: BP 126/84
== END 2017-09-02 23:53 | disposition home or self-care (01) ==
LOC: M ED 20:42
DX: G43.909 Migraine, unspecified, not intractable, without status migrainosus (principal); F17.200 Nicotine dependence, unspecified, uncomplicated; Z79.899 Other long term (current) drug therapy; Z91.041 Radiographic dye allergy status; Z91.040 Latex allergy status; Z91.018 Allergy to other foods; Z88.8 Allergy status to other drugs, medicaments and biological substances
CPT/HCPCS: 96374; 96375; 99283; J1200; J2765

== ENCOUNTER 2017-10-17 20:14 | Emergency (ER) | payer OTHER ==
[~2017-10-17] VITALS: Ht 157.5 cm; Wt 220.0 kg
[~2017-10-17 20:14] MED LIST changes: +DEPA1TAB3 PO; +DOXE10CA PO; +VENL150C43 PO
[2017-10-17] MEDS ORDERED: KETOROLAC 60 MG/2 ML VIAL (J1885) IM ONE (21:15)
[2017-10-17] MEDS ORDERED: ADACEL/BOOSTRIX VACCINE (DIPHTH/PERTUSS/ACELL/TETANUS)0.5ML SYR (90715) IM ONE (21:15)
[2017-10-17 21:41] VITALS: BP 139/70
== END 2017-10-17 21:42 | disposition home or self-care (01) ==
LOC: M ED 20:14
DX: T25.212A Burn of second degree of left ankle, initial encounter (principal); X12.XXXA Contact with other hot fluids, initial encounter; Y92.89 Other specified places as the place of occurrence of the external cause; Y93.89 Activity, other specified; Y99.8 Other external cause status; J45.909 Unspecified asthma, uncomplicated; K21.9 Gastro-esophageal reflux disease without esophagitis; E78.5 Hyperlipidemia, unspecified; M79.7 Fibromyalgia; E55.9 Vitamin D deficiency, unspecified; F31.9 Bipolar disorder, unspecified; F17.200 Nicotine dependence, unspecified, uncomplicated; Z91.041 Radiographic dye allergy status; Z91.018 Allergy to other foods; Z91.02 Food additives allergy status; Z91.040 Latex allergy status; Z79.899 Other long term (current) drug therapy
CPT/HCPCS: 90471; 90715; 96372; 99283; J1885

== ENCOUNTER → 2017-11-19 | Outpatient (CLI) | payer OTHER | LOC: M PAIN 15:00 | DX: M46.1 Sacroiliitis, not elsewhere classified (principal); M51.26 Other intervertebral disc displacement, lumbar region; M79.7 Fibromyalgia; F31.9 Bipolar disorder, unspecified; E78.00 Pure hypercholesterolemia, unspecified; E55.9 Vitamin D deficiency, unspecified; G43.909 Migraine, unspecified, not intractable, without status migrainosus; K21.9 Gastro-esophageal reflux disease without esophagitis; J45.909 Unspecified asthma, uncomplicated; F17.210 Nicotine dependence, cigarettes, uncomplicated; Z88.8 Allergy status to other drugs, medicaments and biological substances; Z91.018 Allergy to other foods; Z91.040 Latex allergy status; Z91.041 Radiographic dye allergy status; Z79.891 Long term (current) use of opiate analgesic; Z79.899 Other long term (current) drug therapy | CPT/HCPCS: G0463 ==

== ENCOUNTER → 2017-12-21 | Outpatient (CLI) | payer OTHER ==
[2017-12-21 17:28] LABS: VALPROIC ACID (DEPAKOTE) 84.4 UG/ML (50.0-100.0)
== END ==
LOC: M LAB 15:53
DX: F31.9 Bipolar disorder, unspecified (principal)
CPT/HCPCS: 80164

== ENCOUNTER → 2017-12-21 | Outpatient (CLI) | payer OTHER | LOC: M PAIN 14:15 | DX: M46.1 Sacroiliitis, not elsewhere classified (principal); M51.26 Other intervertebral disc displacement, lumbar region; E78.00 Pure hypercholesterolemia, unspecified; K21.9 Gastro-esophageal reflux disease without esophagitis; E55.9 Vitamin D deficiency, unspecified; J45.909 Unspecified asthma, uncomplicated; F17.210 Nicotine dependence, cigarettes, uncomplicated; Z79.891 Long term (current) use of opiate analgesic; Z79.899 Other long term (current) drug therapy; Z91.018 Allergy to other foods; Z91.040 Latex allergy status; Z91.041 Radiographic dye allergy status; Z88.8 Allergy status to other drugs, medicaments and biological substances | CPT/HCPCS: G0463 ==

== ENCOUNTER → 2018-01-14 | Outpatient (CLI) | payer OTHER | LOC: M PAIN 13:45 | DX: M46.1 Sacroiliitis, not elsewhere classified (principal); M51.26 Other intervertebral disc displacement, lumbar region; F17.210 Nicotine dependence, cigarettes, uncomplicated; Z79.891 Long term (current) use of opiate analgesic; Z79.899 Other long term (current) drug therapy; Z91.040 Latex allergy status; Z91.041 Radiographic dye allergy status; Z91.018 Allergy to other foods; J30.2 Other seasonal allergic rhinitis; Z88.8 Allergy status to other drugs, medicaments and biological substances | CPT/HCPCS: G0463 ==

== ENCOUNTER → 2018-01-28 | Outpatient (CLI) | payer OTHER ==
[~2018-01-28] MED LIST changes: -ALBU17IN INH; -AMIT150T PO; -ARNU1INH IN; +BUPIVACAINE HCL 0.25% 10 ML VIAL As Ordered; +BUPIVACAINE HCL 0.25% 30 ML VIAL As Ordered; -BUSP15TA47 PO; -CARA1TAB6 PO; -CELE10TA PO; -CELE1CAP4 PO; -CELE20TA OR; -CIPR-250 PO; -CLAR1TAB2 PO; -DEPA1TAB3 PO; -DOXE10CA PO; -ERYTOIN8 OS; -FLUT11IN INH; -FOLI1TAB4 PO; -GABA-282 PO; -GABA800T PO; -HYDR-3363 PO; -HYDR-3713 PO; -HYDR-643 PO; -IBUP80TA PO; -INDE1CAP5 PO; -LATU1TAB PO; -LEXA1TAB2 PO; -LORA10CA PO; -LYRI150C PO; -MAGN400T2 PO; -MAXA10TA14 PO; -MINI1CAP PO; -MOBI15TA PO; -MOTR200T44 PO; -MULTCAP PO; -NICO21DI5 TD; -NORCOTAB PO; -OCEA0.654; -OXYC1TAB23 PO; -PERCOCET PO; -PROT1TAB2 PO; -RANI15TA PO; -SUMA50TA2 PO; -TIZA4CAP3 PO; -TOPA100T12 PO; -TOPI50TA9 PO; +TRIAMCINOLONE ACETONIDE SUSP 40 MG/ML VIAL (J3301) As Ordered; -TRIL1TAB PO; -TYLE325T5 PO; -VALI5TAB PO; -VENL150C43 PO; -VITA100T2 PO; -ZOFR20TA PO; +diazePAM 5 MG TAB As Ordered; -no meds; +oxyCODONE 5MG TAB As Ordered
== END ==
LOC: M PAIN 15:00
DX: G89.29 Other chronic pain (principal); M79.1 Myalgia; J45.909 Unspecified asthma, uncomplicated; F17.210 Nicotine dependence, cigarettes, uncomplicated; Z79.891 Long term (current) use of opiate analgesic; Z79.899 Other long term (current) drug therapy; Z91.041 Radiographic dye allergy status; Z91.040 Latex allergy status; Z91.018 Allergy to other foods; J32.9 Chronic sinusitis, unspecified; Z88.8 Allergy status to other drugs, medicaments and biological substances
CPT/HCPCS: J3301

== ENCOUNTER → 2018-02-15 | Outpatient (CLI) | payer OTHER | LOC: M PAIN 13:00 | DX: M51.26 Other intervertebral disc displacement, lumbar region (principal); M79.1 Myalgia; F31.9 Bipolar disorder, unspecified; E78.00 Pure hypercholesterolemia, unspecified; G43.909 Migraine, unspecified, not intractable, without status migrainosus; K21.9 Gastro-esophageal reflux disease without esophagitis; J45.909 Unspecified asthma, uncomplicated; F17.210 Nicotine dependence, cigarettes, uncomplicated; Z79.899 Other long term (current) drug therapy; Z88.8 Allergy status to other drugs, medicaments and biological substances; Z91.040 Latex allergy status; Z91.041 Radiographic dye allergy status; Z91.018 Allergy to other foods | CPT/HCPCS: G0463 ==

== ENCOUNTER → 2018-03-18 | Outpatient (CLI) | payer OTHER | LOC: M PAIN 13:30 | DX: M79.1 Myalgia (principal); M51.26 Other intervertebral disc displacement, lumbar region; F17.210 Nicotine dependence, cigarettes, uncomplicated; F31.9 Bipolar disorder, unspecified; G43.909 Migraine, unspecified, not intractable, without status migrainosus; J45.909 Unspecified asthma, uncomplicated; Z79.891 Long term (current) use of opiate analgesic; Z79.899 Other long term (current) drug therapy; Z91.040 Latex allergy status; Z91.041 Radiographic dye allergy status; Z91.018 Allergy to other foods; Z88.8 Allergy status to other drugs, medicaments and biological substances | CPT/HCPCS: G0463 ==

== ENCOUNTER → 2018-05-03 | Outpatient (CLI) | payer OTHER | LOC: M PAIN 11:45 | DX: G89.29 Other chronic pain (principal); M79.1 Myalgia; F31.9 Bipolar disorder, unspecified; E78.00 Pure hypercholesterolemia, unspecified; E55.9 Vitamin D deficiency, unspecified; G43.909 Migraine, unspecified, not intractable, without status migrainosus; K21.9 Gastro-esophageal reflux disease without esophagitis; J32.9 Chronic sinusitis, unspecified; J45.909 Unspecified asthma, uncomplicated; Z91.040 Latex allergy status; Z91.041 Radiographic dye allergy status; Z91.018 Allergy to other foods; Z88.8 Allergy status to other drugs, medicaments and biological substances; Z79.891 Long term (current) use of opiate analgesic; Z79.899 Other long term (current) drug therapy | CPT/HCPCS: J3301 ==

== ENCOUNTER → 2018-06-03 | Outpatient (CLI) | payer OTHER | LOC: M PAIN 11:00 | DX: M51.26 Other intervertebral disc displacement, lumbar region (principal); M54.16 Radiculopathy, lumbar region; M79.1 Myalgia; F31.9 Bipolar disorder, unspecified; E78.00 Pure hypercholesterolemia, unspecified; E55.9 Vitamin D deficiency, unspecified; G43.909 Migraine, unspecified, not intractable, without status migrainosus; K21.9 Gastro-esophageal reflux disease without esophagitis; J32.9 Chronic sinusitis, unspecified; J45.909 Unspecified asthma, uncomplicated; K64.8 Other hemorrhoids; F17.210 Nicotine dependence, cigarettes, uncomplicated; Z91.040 Latex allergy status; Z79.891 Long term (current) use of opiate analgesic; Z91.041 Radiographic dye allergy status; Z91.018 Allergy to other foods; Z88.8 Allergy status to other drugs, medicaments and biological substances; Z79.899 Other long term (current) drug therapy | CPT/HCPCS: G0463 ==

== ENCOUNTER → 2018-07-14 | Outpatient (CLI) | payer OTHER | LOC: M PAIN 10:30 | DX: M51.26 Other intervertebral disc displacement, lumbar region (principal); M54.16 Radiculopathy, lumbar region; M79.1 Myalgia; F31.9 Bipolar disorder, unspecified; E78.00 Pure hypercholesterolemia, unspecified; G43.909 Migraine, unspecified, not intractable, without status migrainosus; J45.909 Unspecified asthma, uncomplicated; F17.210 Nicotine dependence, cigarettes, uncomplicated; E66.01 Morbid (severe) obesity due to excess calories; Z68.37 Body mass index [BMI] 37.0-37.9, adult; Z79.51 Long term (current) use of inhaled steroids; Z79.891 Long term (current) use of opiate analgesic; Z79.899 Other long term (current) drug therapy; Z88.8 Allergy status to other drugs, medicaments and biological substances; Z91.040 Latex allergy status; Z91.041 Radiographic dye allergy status; Z91.018 Allergy to other foods | CPT/HCPCS: G0463 ==

== ENCOUNTER 2019-01-02 00:38 | Emergency (ER) | payer OTHER ==
[~2019-01-02] VITALS: Ht 157.5 cm; Wt 91.8 kg
[~2019-01-02 00:38] MED LIST changes: +ALBU17IN INH; +AMIT150T PO; +ARNU1INH IN; -BUPIVACAINE HCL 0.25% 10 ML VIAL As Ordered; -BUPIVACAINE HCL 0.25% 30 ML VIAL As Ordered; +BUSP15TA47 PO; +CARA1TAB6 PO; +CELE10TA PO; +CELE1CAP4 PO; +CELE20TA OR; +CIPR-250 PO; +CLAR1TAB2 PO; +DEPA1TAB3 PO; +DOXE10CA PO; +ERYTOIN8 OS; +FLUT11IN INH; +FOLI1TAB11 PO; +GABA-843 PO; +GABA800T4 PO; +HYDR-3363 PO; +HYDR-3713 PO; +HYDR-643 PO; +IBUP80TA PO; +INDE60CA4 PO; +LATU1TAB PO; +LEXA1TAB2 PO; +LORA10CA PO; +LYRI150C PO; +MAGN400T2 PO; +MAXA10TA14 PO; +MINI1CAP PO; +MOBI15TA PO; +MOTR200T44 PO; +MULTCAP PO; +NICO21DI6 TD; +NORCOTAB PO; +OCEA0.654; +OXYC1TAB23 PO; +PERCOCET PO; +PROT1TAB2 PO; +RANI15TA PO; +SUMA50TA2 PO; +TIZA4CAP PO; +TOPA100T12 PO; +TOPI50TA9 PO; -TRIAMCINOLONE ACETONIDE SUSP 40 MG/ML VIAL (J3301) As Ordered; +TRIL1TAB PO; +TYLE325T5 PO; +VALI5TAB PO; +VENL150C43 PO; +VITA100T8 PO; +ZOFR4TAB16 PO; -diazePAM 5 MG TAB As Ordered; +no meds; -oxyCODONE 5MG TAB As Ordered
[2019-01-02] MEDS ORDERED: dexameTHASONE 20 MG/5 ML VIAL (J1100) IV ONE (02:45)
[2019-01-02 02:58] LABS: BASO # 0.1 10^3/uL (0.0-0.2); BASO % 0.5 % (0.0-1.0); EOS # 0.3 10^3/uL (0.0-0.50); EOS % 2.4 % (0.0-3.0); HEMATOCRIT 39.1 % (36.0-47.0); HEMOGLOBIN 13.6 g/dl (12.0-15.5); LYMPH % 33.2 % (24.0-44.0); MEAN CORPUSCULAR HGB CONC 34.8 g/dl (32.0-36.5); MEAN CORPUSCULAR VOLUME 94.9 fl (80.0-96.0); MONO # 1.2 10^3/uL (0.0-0.8); MONO % 10.1 % (0.0-5.0); NEUTROPHILS # 6.5 10^3/uL (1.8-7.7); NEUTROPHILS % 53.5 % (36.0-66.0); PLATELET COUNT, AUTOMATED 283 10^3/uL (150-450); RED BLOOD COUNT 4.12 10^6/uL (4.00-5.40); WHITE BLOOD COUNT 12.1 10^3/uL (4.0-10.0)
[2019-01-02 03:17] LABS: HCG, SERUM QUALITATIVE NEGATIVE (NEGATIVE)
[2019-01-02 03:29] LABS: BLOOD UREA NITROGEN 10 MG/DL (7-18); CALCIUM LEVEL 8.1 MG/DL (8.5-10.1); CARBON DIOXIDE LEVEL 24 MEQ/L (21-32); CHLORIDE LEVEL 109 MEQ/L (98-107); CREATININE FOR GFR 0.92 MG/DL (0.55-1.30); GLOMERULAR FILTRATION RATE > 60.0 (>60); GLUCOSE, FASTING 85 MG/DL (70-100); POTASSIUM SERUM 3.8 MEQ/L (3.5-5.1); SODIUM LEVEL 141 MEQ/L (136-145)
[2019-01-02] MEDS ORDERED: diphenhydrAMINE INJ 50MG/ML VIAL (J1200) IV STA (03:34)
[2019-01-02] MEDS ORDERED: ISOVUE-370 76% 100ML VIAL (Q9967) As Ordered ONE (03:37)
--- NOTE | 2019-01-02 04:24 | REPVR ---
EXAM: CT Neck With Contrast EXAM DATE/TIME: 01/02/2019 3:52 AM CLINICAL HISTORY: 33 years old, female; Signs and symptoms; Mass, lump, or swelling in neck; Prior surgery; Surgery date: <1 month; Surgery type: Cervical discectomy with fusion 12-23-18; Additional info: Eval post complaint TECHNIQUE: Axial computed tomography images of the neck with intravenous contrast. All CT scans at this facility use at least one of these dose optimization techniques: automated exposure control; mA and/or kV adjustment per patient size (includes targeted exams where dose is matched to clinical indication); or iterative reconstruction. Coronal and sagittal reformatted images were created and reviewed. CONTRAST: 75 ml of ISOVUE 370 administered intravenously. COMPARISON: CR Spine, Cervical 03/17/2017 4:27 PM FINDINGS: Oropharynx: Normal. No significant tonsillar enlargement. Larynx: Normal. Normal epiglottis. Submandibular/Parotid glands: Normal. Glands are normal in size. Thyroid: Normal. No enlarged or calcified nodules. Lymph nodes: Bilateral cervical lymph nodes seen measuring less than 1 cm in short axis. Lungs: Normal as visualized. Vasculature: No acute findings. Bones/joints: The patient is status post cervical discectomy with cervical fusion via anterior approach with grossly intact surgical plates and screws at C4, C5 and C6. There is some prevertebral soft tissue swelling and stranding at the surgical site extending superiorly to the level of C3 vertebral body and inferiorly to the C7 vertebral body. No walled off collection seen. Soft tissues: See Bones/joints Finding. IMPRESSION: Status post cervical spine surgery with surgical fusion via anterior approach C4-C6 with some prevertebral soft tissue swelling extending from C3-C7 likely postsurgical inflammation and granulation. No walled off collection seen to suggest an abscess however adequate evaluation slightly hindered by streak artifacts from surgical plates. Electronically signed by: Markus Valentin On 01/02/2019 04:24:12 AM
[2019-01-02] MEDS ORDERED: ACETAMINOPHEN 325 MG/10.15 ML UDC PO ONE (05:15)
[2019-01-02 05:21] VITALS: BP 130/69
== END 2019-01-02 05:26 | disposition home or self-care (01) ==
LOC: M ED 00:38
DX: G89.18 Other acute postprocedural pain (principal); M54.2 Cervicalgia; G89.29 Other chronic pain; K21.9 Gastro-esophageal reflux disease without esophagitis; F41.9 Anxiety disorder, unspecified; F33.9 Major depressive disorder, recurrent, unspecified; Z91.041 Radiographic dye allergy status; Z88.8 Allergy status to other drugs, medicaments and biological substances; Z91.018 Allergy to other foods; Z91.040 Latex allergy status
CPT/HCPCS: 70491; 80048; 84703; 85025; 96374; 96375; 99283; J1100; J1200; Q9967

== ENCOUNTER 2019-02-08 17:08 | Emergency (ER) | payer OTHER ==
[~2019-02-08] VITALS: Ht 157.5 cm; Wt 90.9 kg
[2019-02-08] MEDS ORDERED: TRAZ1TAB14 PO (17:17)
[2019-02-08 18:18] LABS: HEMATOCRIT 37.9 % (36.0-47.0); HEMOGLOBIN 12.6 g/dl (12.0-15.5); MEAN CORPUSCULAR HEMOGLOBIN 31.7 pg (27.0-33.0); MEAN CORPUSCULAR HGB CONC 33.2 g/dl (32.0-36.5); MEAN CORPUSCULAR VOLUME 95.5 fl (80.0-96.0); PLATELET COUNT, AUTOMATED 249 10^3/uL (150-450); RED BLOOD COUNT 3.97 10^6/uL (4.00-5.40); WHITE BLOOD COUNT 12.2 10^3/uL (4.0-10.0)
--- NOTE | 2019-02-08 18:34 | REP ---
CT ABDOMEN AND PELVIS WITHOUT CONTRAST: CT abdomen and pelvis was performed without oral or IV contrast. Sagittal and coronal reconstruction images are performed. Visualized lung bases are clear. The liver, gallbladder, spleen, adrenals, pancreas and kidneys appear grossly unremarkable. There is no evidence of renal or ureteral calculus and no evidence of hydroureteronephrosis. There is no abdominal aortic aneurysm. There is no evidence of adenopathy. There is no free air or free fluid. There is no bowel wall thickening. There is no evidence of appendicitis. I see no pelvic mass. Urinary bladder is mildly distended and grossly unremarkable. IMPRESSION: Essentially unremarkable noncontrast CT abdomen and pelvis. Electronically Signed by Chris Peace MD 02/09/2019 01:38 P
[2019-02-08 18:38] LABS: BLOOD UREA NITROGEN 7 MG/DL (7-18); CALCIUM LEVEL 8.3 MG/DL (8.5-10.1); CARBON DIOXIDE LEVEL 23 MEQ/L (21-32); CHLORIDE LEVEL 113 MEQ/L (98-107); CREATININE FOR GFR 1.06 MG/DL (0.55-1.30); GLOMERULAR FILTRATION RATE > 60.0 (>60); GLUCOSE, FASTING 132 MG/DL (70-100); POTASSIUM SERUM 3.8 MEQ/L (3.5-5.1); SODIUM LEVEL 142 MEQ/L (136-145)
[2019-02-08] MEDS ORDERED: NORCOTAB PO (20:15)
[2019-02-08 20:28] VITALS: BP 124/58
== END 2019-02-08 20:34 | disposition home or self-care (01) ==
LOC: M ED 17:08
DX: K64.5 Perianal venous thrombosis (principal); Z91.041 Radiographic dye allergy status; Z91.040 Latex allergy status; Z91.048 Other nonmedicinal substance allergy status; Z91.018 Allergy to other foods; Z88.8 Allergy status to other drugs, medicaments and biological substances; Z79.899 Other long term (current) drug therapy; Z79.51 Long term (current) use of inhaled steroids

== ENCOUNTER → 2019-06-22 | Outpatient (REF) | payer OTHER, MEDICAID ==
[~2019-06-22] MED LIST changes: +HYDR-3715 PO; -NORCOTAB PO; +TRAZ1TAB14 PO
[2019-06-22 18:03] LABS: BASO % 0.3 % (0.0-1.0); EOS # 0.3 10^3/uL (0.0-0.50); EOS % 3.6 % (0.0-3.0); HEMATOCRIT 42.9 % (36.0-47.0); HEMOGLOBIN 14.5 g/dl (12.0-15.5); LYMPH # 1.7 10^3/uL (1.5-4.5); LYMPH % 24.3 % (24.0-44.0); MEAN CORPUSCULAR HEMOGLOBIN 32.4 pg (27.0-33.0); MEAN CORPUSCULAR HGB CONC 33.8 g/dl (32.0-36.5); MONO # 0.9 10^3/uL (0.0-0.8); MONO % 12.3 % (0.0-5.0); NEUTROPHILS # 4.1 10^3/uL (1.8-7.7); NEUTROPHILS % 58.9 % (36.0-66.0); PLATELET COUNT, AUTOMATED 273 10^3/uL (150-450); RED BLOOD COUNT 4.47 10^6/uL (4.00-5.40); WHITE BLOOD COUNT 6.9 10^3/uL (4.0-10.0)
[2019-06-22 18:17] LABS: ALBUMIN 3.7 GM/DL (3.2-5.2); ALT/SGPT 25 U/L (12-78); BILIRUBIN,TOTAL 0.2 MG/DL (0.2-1.0); BLOOD UREA NITROGEN 16 MG/DL (7-18); CALCIUM LEVEL 8.8 MG/DL (8.5-10.1); CARBON DIOXIDE LEVEL 23 MEQ/L (21-32); CHLORIDE LEVEL 114 MEQ/L (98-107); CHOLESTEROL LEVEL 189 MG/DL (<200); CREATININE FOR GFR 0.93 MG/DL (0.55-1.30); FREE T4 1.16 NG/DL (0.76-1.46); GLOMERULAR FILTRATION RATE > 60.0 (>60); GLUCOSE, FASTING 96 MG/DL (70-100); HDL CHOLESTEROL 42 MG/DL (>40); LDL CHOLESTEROL 126 MG/DL (<100); NON-HDL-C 147 MG/DL; SODIUM LEVEL 143 MEQ/L (136-145); TOTAL 25(OH) VITAMIN D 24.2 NG/ML (30.0-100.0); TOTAL PROTEIN 7.1 GM/DL (6.4-8.2); TRIGLYCERIDES LEVEL 105 MG/DL (<150)
[2019-06-22 18:41] LABS: HEMOGLOBIN A1c 5.6 %
== END ==
LOC: M LAB REF 16:55
PROVIDERS: ATTEND Nurse Practitioner Family
DX: Z13.9 Encounter for screening, unspecified (principal)

== ENCOUNTER → 2019-06-23 | Outpatient (CLI) | payer OTHER ==
--- NOTE | 2019-06-27 23:52 | ECWPNPC ---
PATIENT NAME: NATALIE GARCIA : 1985 GENDER: FEMALE VISIT DATE: 06/23/2019 DISCHARGE DATE: 06/23/19 1404 VISIT LOCKED DATE TIME: PHYSICIAN: LAURA GARRETT RESOURCE: LAURA GARRETT REASON FOR APPOINTMENT 1. BACK & NECK PAIN- SW'S OLD PATIENT HISTORY OF PRESENT ILLNESS HISTORY OF PRESENT ILLNESS: PAIN THE PATIENT DESCRIBES THE PAIN... 34 YEAR OLD FEMALE IN FOR EVALUATION OF NECK PAIN THAT RADIATES UP INTO HER HEAD. SHE CURRENTLY RATES HER PAIN AT A 8/10 AND DESCRIBES IT ACHING, SHARP, STABBING, SHOOTING, AND TENDER. SHE STATES THIS PAIN STARTED AFTER SHE HAD CERVICAL SPINE SURGERY WITH PLATES INSTALLED. FALL RISK SCREENING: SCREENING :NO FALLS REPORTED IN THE LAST YEAR CURRENT MEDICATIONS TAKING VENTOLIN HFA 108 (90 BASE) MCG/ACT AEROSOL SOLUTION 2 PUFFS NEEDED INHALATION EVERY 4 HRS TAKING TOPAMAX 100 100MG TABLET 100 MG IN AM, 150 MG AT NIGHT ORAL TWICE DAILY TAKING INDERAL 20 MG TABLET PO BID TAKING PROTONIX 40 MG TABLET DELAYED RELEASE 1 TABLET ORALLY ONCE A DAY TAKING NARATRIPTAN HCL 2.5 MG TABLET 1 TABLET NEEDED ONE TIME ORALLY ONCE A DAY TAKING LYRICA 75 MG CAPSULE 1 CAPSULE AT BEDTIME ORALLY ONCE A DAY TAKING VENLAFAXINE HCL ER 150 MG CAPSULE EXTENDED RELEASE 24 HOUR 1 CAPSULE WITH FOOD ORALLY ONCE A DAY TAKING TRAZODONE HCL 300 MG TABLET 0.5 TABLET AT BEDTIME ORALLY ONCE A DAY, NOTES: STATES IT'S NOT WORKING NOT-TAKING CARAFATE 1 GM TABLET 1 TABLET ON AN EMPTY STOMACH ORALLY 4 TIMES A DAY NOT-TAKING ZOFRAN 8 MG TABLET 1 TABLET ORALLY Q 6 HRS PRN NAUSEA NOT-TAKING ARNUITY ELLIPTA 100 MCG/ACT AEROSOL POWDER BREATH ACTIVATED 1 PUFF INHALATION ONCE A DAY NOT-TAKING ESCITALOPRAM OXALATE 5 MG TABLET 2 TABLETS ORALLY ONCE A DAY NOT-TAKING GABAPENTIN 300 MG CAPSULE 1 CAPSULE ORALLY THREE TIMES A DAY NOT-TAKING VALIUM 5 MG TABLET 1 TABLET ORALLY 2X/DAY NEEDED FOR SPASM OR ANXIETY MDD=2 45 TABS FOR 30 DAYS NOT-TAKING PERCOCET 5-325 MG TABLET 1 TABLET NEEDED ORALLY EVERY 8 HRS PRN PAIN MDD=3 MEDICATION LIST REVIEWED AND RECONCILED WITH THE PATIENT PAST MEDICAL HISTORY FIBROMYALGIA BIPOLAR HIGH CHOLESTEROL VIT D DEFICIENCY MIGRANE GERD SINUSITIS HEMORRHOIDS ASTHMA CHRONIC PAIN ALLERGIES LATEX: HIVES - ALLERGY IV CONTRAST DYE: HIVES - ALLERGY STRAWBERRIES: THROAT CLOSES - ALLERGY PINEAPPLE: THROAT CLOSES - ALLERGY SEASONAL: SINUS CONGESTION - ALLERGY CYMBALTA: DIARRHEA - SIDE EFFECTS SURGICAL HISTORY RIGHT ANKLE SURGERY 2016 HYSTERECTOMY 2015 NECK SURGERY 11/2018 SOCIAL HISTORY GENERAL: TOBACCO USE ARE YOU A:CURRENT SMOKER ARE YOU INTERESTED IN QUITTING?THINKING ABOUT QUITTING COUNSELED THE PATIENT ON SMOKING CESSATION, EDUCATION [id number] HOW MANY CIGARETTES A DAY DO YOU SMOKE?5 OR LESS HOW SOON AFTER YOU WAKE UP DO YOU SMOKE YOUR FIRST CIGARETTE?31-60 MIN HOW OFTEN DO YOU SMOKE CIGARETTES?EVERY DAY PATIENT COUNSELED ON THE DANGERS OF TOBACCO USE AND URGED TO QUIT:06/23/2019 PAIN CLINIC PFS, CLERGY, PUBLIC HEALTH REFERRALS PFS REFERRAL NEEDED?NO CLERGY REFERRAL NEEDED?NO PUBLIC HEALTH REFERRAL NEEDED?NO WAS THE PROVIDER NOTIFIED OF ANY PERTINENT INFO?NO HAS THE PATIENT BEEN EDUCATED REGARDING HIS/HER PLAN OF CARE?YES HAS THE PATIENT BEEN EDUCATED REGARDING PAIN, THE RISK FOR PAIN, THE IMPORTANCE OF EFFECTIVE PAIN MANAGEMENT, AND THE PAIN ASSESSMENT PROCESS?YES LATEX QUESTIONNAIRE LATEX ALLERGY : HAVE YOU EVER DEVELOPED ANY TYPE OF REACTION AFTER HANDLING LATEX PRODUCTS SUCH RUBBER GLOVES, CONDOMS, DIAPHRAGMS, BALLOONS, SOCKS, OR UNDERWEAR?YES DATE ASKED : 06/23/2019 PATIENT HAS ACTIVE LATEX ALLERGY. CAFFEINE CAFFEINE USE?YES HOW OFTEN AND HOW MUCH? LOTS DAILY ADVANCE DIRECTIVE ADVANCE DIRECTIVE DISCUSSED WITH PATIENT:YES PT DECLINES HCP INFORMATION AT THIS TIME. JUDAISM [id number] NONE LANGUAGE LANGUAGES SPOKEN:CROATIAN ALCOHOL SCREENING DID YOU HAVE A DRINK CONTAINING ALCOHOL IN THE PAST YEAR?NO POINTS0 INTERPRETATIONNEGATIVE RECREATIONAL DRUG USE DRUG USE?NO LEARNING BARRIERS / SPECIAL NEEDS BARRIERS TO LEARNING?NO HEARING IMPAIRED?NO VISION IMPAIRED?YES :CORRECTIVE LENSES COGNITIVELY IMPAIRED?NO READINESS TO LEARN?YES LEARNING PREFERENCES?NO LEARNING CAPABILITIES PRESENT?YES EMOTIONAL BARRIERS?NO SPECIAL DEVICES?NO CHECK AND TRANSFER BEADER NEEDED?NO REVIEWED WITH PATIENT 06/23/19 1332 JS. HOSPITALIZATION/MAJOR DIAGNOSTIC PROCEDURE SURGERY MENTAL HEALTH MULTIPLE TIMES REVIEW OF SYSTEMS REVIEWED BY: PROVIDER: ABELARDO ALCAZAR . CONSTITUTIONAL: ANY CHANGE IN YOUR MEDICAL CONDITION? NO . CHILLS NO . FEVER NO . INFECTION: DO YOU HAVE NEW INFECTIONS? NO . DO YOU HAVE HISTORY OF MRSA? NO . MUSCULOSKELETAL: ANY NEW PATTERNS OF PAIN OR NUMBNESS? YES, STATES NECK PAIN SINCE HAVING NECK SURGERY IN NOVEMBER. PAIN IS SHOOTING UP HER NECK AND CAUSING TERRIBLE HEADACHES . GASTROENTEROLOGY: ANY NEW CHANGE IN BOWEL CONTROL? NO . GENITOURINARY: ANY NEW CHANGE IN BLADDER CONTROL? NO . IS THERE A CHANCE YOU COULD BE ? NO . HEMATOLOGY/LYMPH: DO YOU TAKE ANY BLOOD THINNERS? (FOR EXAMPLE- COUMADIN, PLAVIX, AGGRENOX, PLATEL, PRADAXA, OR XARELTO) NO . WHEN WAS YOUR LAST DOSE? DATE: TIME: . NEUROLOGY: HAVE YOU FALLEN IN THE PAST 12 MONTHS? NO . ANY NEW EXTREMITY NUMBNESS OR WEAKNESS? NO . CARDIOLOGY: DO YOU HAVE A PACEMAKER OR DEFIBRILLATOR? NO . RESPIRATORY: HAVE YOU BEEN SICK IN THE PAST WEEK? NO . FEVER NO . FLU LIKE SYMPTOMS? NO . COUGH NO . INTEGUMENTARY: DO YOU HAVE ANY RASHES OR OPEN SORES? NO . ALLERGIC/IMMUNO: ARE YOU ALLERGIC TO IV DYE? YES . ANY NEW ALLERGIES? NO . PSYCHIATRIC: DO YOU HAVE THOUGHTS OF HURTING YOURSELF OR SOMEONE ELSE? NO . ARE YOU ABUSED, NEGLECTED, OR IN AN UNSAFE ENVIRONMENT? NO . ENDOCRINOLOGY: ARE YOU DIABETIC? NO . OTHER: DO YOU NEED ANY PRESCRIPTIONS? NO . IF YES, PLEASE LIST: ____ . ANY NEW PROBLEMS WITH YOUR MEDICATIONS? NO . WHEN DID YOU LAST EAT? ____ . WHEN DID YOU LAST DRINK? ____ . WHAT DID YOU LAST DRINK? ____ . NAME OF PERSON DRIVING YOU HOME? ____ . DO YOU HAVE ANY OTHER QUESTIONS OR CONCERNS NO . VITAL SIGNS WT 189.4 LBS, HT 62 IN, BMI 34.64 INDEX, BP 116/75 MM HG, HR 84 /MIN, RR 16 /MIN, TEMP 97.1 F, OXYGEN SAT % 100%, SAFE IN ENV? (Y/N) YES, NA INITIALS NJ 13:10, REVIEWED BY: AJ. EXAMINATION GENERAL EXAMINATION: GENERALNO ACUTE DISTRESS, WELL NOURISHED AND HYDRATED. PSYCHAPPROPRIATE MOOD AND AFFECT . NECK:TENDER BILATERAL POSTERIOR NECK, SURROUNDING SKIN SHOWS NO ERYTHEMA, NO ECCHYMOSIS, INCREASED WARMTH, AND/OR SKIN ERUPTIONS. . LUNGS:CLEAR TO AUSCULTATION BILATERALLY, NO WHEEZES, RHONCHI, RALES. HEART:NO MURMURS, REGULAR RATE AND RHYTHM. ASSESSMENTS MYALGIA, OTHER SITE - M79.18 (PRIMARY) TREATMENT MYALGIA, OTHER SITE CLINICAL NOTES: 34 YEAR OLD FEMALE IN FOR EVALUATION OF BILATERAL POSTERIOR NECK PAIN WITH RADIATION UP INTO THE HEAD. GIVEN PRESENTING SYMPTOMS AND RESULTS OF PHYSICAL EXAMINATION RECOMMENDED BILATERAL TPI OF THE NECK WITH POST PROCEDURAL FOLLOW UP. PATIENT HAS EXPRESSED UNDERSTANDING OF AND WAS IN AGREEMENT WITH TREATMENT PLAN. GIVEN TIME TO ASK QUESTIONS AND EXPRESS CONCERNS. , ISTOP REGISTRY REVIEWED AND DEMONSTRATES COMPLLIANCE. (REF # [id number] ) BRINGS IN MEDICATIONS WHICH IS APPROPRIATE FOR WHAT WAS DISPENSED. RECENT URINE TOXICOLOGY REVIEWED. NO UNAUTHORIZED MEDICATIONS. NO ILLICIT SUBSTANCES AND PRESCRIBED MEDICATIONS WERE PRESENT. OTHERS NOTES: BILATERAL TPI OF THE NECK . PREVENTIVE MEDICINE PAIN CLINIC TEACHING: PROCEDURE TEACHING REVIEWED INFORMATION ON TRIGGER POINT INJECTIONS PROCEDURE WITH PATIENT. ALSO REVIEWED PRE-PROCEDURE INSTRUCTIONS. PATIENT VERBALIZED AN UNDERSTANDING. TROY VARNER 06/23/2019 2:47:18 PM > . DISPOSITION & COMMUNICATION FOLLOW UP POST PROCEDURE (REASON: BILATERAL TPI OF THE NECK ) ELECTRONICALLY SIGNED BY GANGA MILLAN ON 06/27/2019 AT 09:57 AM EDT DISCLAIMER : THIS IS A VISIT SUMMARY EXTRACTED FROM THE [employer] [facility] CHART. IT IS NOT A COPY OF THE [employer] PROGRESS NOTE. JEREL
== END ==
LOC: M PAIN 13:00
PROVIDERS: ATTEND Family Medicine
DX: M79.18 Myalgia, other site (principal); F31.9 Bipolar disorder, unspecified; E78.00 Pure hypercholesterolemia, unspecified; E55.9 Vitamin D deficiency, unspecified; G43.909 Migraine, unspecified, not intractable, without status migrainosus; K21.9 Gastro-esophageal reflux disease without esophagitis; K64.9 Unspecified hemorrhoids; J45.909 Unspecified asthma, uncomplicated; G89.29 Other chronic pain; F17.210 Nicotine dependence, cigarettes, uncomplicated

== ENCOUNTER → 2019-08-09 | Outpatient (CLI) | payer OTHER ==
--- NOTE | 2019-08-10 02:21 | REP ---
Clinical: Lumbar spondylosis . Technique: AP, lateral, and coned-down views. Findings: Alignment and lordosis is maintained. The vertebral bodies including transverse process and spinous processes are intact and normal. There is no evidence for acute fracture / compression injury or subluxation. No evidence for spondylolysis or spondylolisthesis. No significant degenerative change is noted. Impression: Normal lumbosacral spine radiograph series. Electronically Signed by Federico Hamlin MD 08/10/2019 02:14 A
--- NOTE | 2019-08-10 02:31 | REP ---
Clinical: Nontraumatic hip pain. Technique: Three views each of the right and left hip. Findings: Bilateral hip joints are symmetric and normal for age. No acute fracture dislocation. No overt osteoarthritic degenerative changes. Impression: Symmetric normal bilateral hip radiograph series Electronically Signed by Federico Hamlin MD 08/10/2019 02:22 A
== END ==
LOC: M RAD 11:33
PROVIDERS: ATTEND Nurse Practitioner Family
DX: M25.551 Pain in right hip (principal); M25.552 Pain in left hip; M54.5 Low back pain

== ENCOUNTER → 2019-08-15 | Outpatient (CLI) | payer OTHER ==
[~2019-08-15] MED LIST changes: +BUPIVACAINE HCL 0.25% 10 ML VIAL As Ordered ONE; +BUPIVACAINE HCL 0.25% 30 ML VIAL As Ordered ONE; +TRIAMCINOLONE ACETONIDE SUSP 40 MG/ML VIAL (J3301) As Ordered ONE; +diazePAM 5 MG TAB As Ordered ONE; +oxyCODONE 5MG TAB As Ordered ONE
--- NOTE | 2019-08-28 23:25 | ECWPNPC ---
PATIENT NAME: NATALIE GARCIA : 1985 GENDER: FEMALE VISIT DATE: 08/15/2019 DISCHARGE DATE: 08/15/19 1709 VISIT LOCKED DATE TIME: PHYSICIAN: KELLEY ASIF MD RESOURCE: KELLEY ASIF MD REASON FOR APPOINTMENT 1. TPI BILAT NECK HISTORY OF PRESENT ILLNESS HISTORY OF PRESENT ILLNESS: PAIN THE PATIENT DESCRIBES THE PAIN... FALL RISK SCREENING: SCREENING :NO FALLS REPORTED IN THE LAST YEAR CURRENT MEDICATIONS TAKING VENTOLIN HFA 108 (90 BASE) MCG/ACT AEROSOL SOLUTION 2 PUFFS NEEDED INHALATION EVERY 4 HRS TAKING TOPAMAX 100 100MG TABLET 100 MG IN AM, 150 MG AT NIGHT ORAL TWICE DAILY TAKING INDERAL 20 MG TABLET PO BID TAKING PROTONIX 40 MG TABLET DELAYED RELEASE 1 TABLET ORALLY BID TAKING NARATRIPTAN HCL 2.5 MG TABLET 1 TABLET NEEDED ONE TIME ORALLY ONCE A DAY TAKING LYRICA 50 MG CAPSULE 50 MG IN AM, 100 MG IN PM ORALLY BID TAKING VENLAFAXINE HCL ER 75 MG CAPSULE EXTENDED RELEASE 24 HOUR 1 CAPSULE WITH FOOD ORALLY ONCE A DAY TAKING LORATADINE 10 MG TABLET 1 TABLET ORALLY ONCE A DAY NOT-TAKING TRAZODONE HCL 300 MG TABLET 0.5 TABLET AT BEDTIME ORALLY ONCE A DAY, NOTES: STATES IT'S NOT WORKING NOT-TAKING CARAFATE 1 GM TABLET 1 TABLET ON AN EMPTY STOMACH ORALLY 4 TIMES A DAY NOT-TAKING ZOFRAN 8 MG TABLET 1 TABLET ORALLY Q 6 HRS PRN NAUSEA NOT-TAKING ARNUITY ELLIPTA 100 MCG/ACT AEROSOL POWDER BREATH ACTIVATED 1 PUFF INHALATION ONCE A DAY NOT-TAKING ESCITALOPRAM OXALATE 5 MG TABLET 2 TABLETS ORALLY ONCE A DAY NOT-TAKING GABAPENTIN 300 MG CAPSULE 1 CAPSULE ORALLY THREE TIMES A DAY NOT-TAKING VALIUM 5 MG TABLET 1 TABLET ORALLY 2X/DAY NEEDED FOR SPASM OR ANXIETY MDD=2 45 TABS FOR 30 DAYS NOT-TAKING PERCOCET 5-325 MG TABLET 1 TABLET NEEDED ORALLY EVERY 8 HRS PRN PAIN MDD=3 MEDICATION LIST REVIEWED AND RECONCILED WITH THE PATIENT PAST MEDICAL HISTORY FIBROMYALGIA BIPOLAR HIGH CHOLESTEROL VIT D DEFICIENCY MIGRANE GERD SINUSITIS HEMORRHOIDS ASTHMA CHRONIC PAIN ALLERGIES LATEX: HIVES - ALLERGY IV CONTRAST DYE: HIVES - ALLERGY STRAWBERRIES: THROAT CLOSES - ALLERGY PINEAPPLE: THROAT CLOSES - ALLERGY SEASONAL: SINUS CONGESTION - ALLERGY CYMBALTA: DIARRHEA - SIDE EFFECTS SURGICAL HISTORY RIGHT ANKLE SURGERY 2016 HYSTERECTOMY 2015 NECK SURGERY 11/2018 FAMILY HISTORY NO FAMILY HISTORY DOCUMENTED. SOCIAL HISTORY GENERAL: TOBACCO USE ARE YOU A:CURRENT SMOKER ARE YOU INTERESTED IN QUITTING?THINKING ABOUT QUITTING COUNSELED THE PATIENT ON SMOKING CESSATION, EDUCATION [id number]/2019 HOW MANY CIGARETTES A DAY DO YOU SMOKE?5 OR LESS HOW SOON AFTER YOU WAKE UP DO YOU SMOKE YOUR FIRST CIGARETTE?31-60 MIN HOW OFTEN DO YOU SMOKE CIGARETTES?EVERY DAY PATIENT COUNSELED ON THE DANGERS OF TOBACCO USE AND URGED TO QUIT:06/23/2019 PAIN CLINIC PFS, CLERGY, PUBLIC HEALTH REFERRALS PFS REFERRAL NEEDED?NO CLERGY REFERRAL NEEDED?NO PUBLIC HEALTH REFERRAL NEEDED?NO WAS THE PROVIDER NOTIFIED OF ANY PERTINENT INFO?NO HAS THE PATIENT BEEN EDUCATED REGARDING HIS/HER PLAN OF CARE?YES HAS THE PATIENT BEEN EDUCATED REGARDING PAIN, THE RISK FOR PAIN, THE IMPORTANCE OF EFFECTIVE PAIN MANAGEMENT, AND THE PAIN ASSESSMENT PROCESS?YES LATEX QUESTIONNAIRE LATEX ALLERGY : HAVE YOU EVER DEVELOPED ANY TYPE OF REACTION AFTER HANDLING LATEX PRODUCTS SUCH RUBBER GLOVES, CONDOMS, DIAPHRAGMS, BALLOONS, SOCKS, OR UNDERWEAR?YES DATE ASKED : 06/23/2019 PATIENT HAS ACTIVE LATEX ALLERGY. CAFFEINE CAFFEINE USE?YES HOW OFTEN AND HOW MUCH? LOTS DAILY ADVANCE DIRECTIVE ADVANCE DIRECTIVE DISCUSSED WITH PATIENT:YES PT DECLINES HCP INFORMATION AT THIS TIME. ORTHODOX [id number] NONE LANGUAGE LANGUAGES SPOKEN:ARMENIAN ALCOHOL SCREENING DID YOU HAVE A DRINK CONTAINING ALCOHOL IN THE PAST YEAR?NO POINTS0 INTERPRETATIONNEGATIVE RECREATIONAL DRUG USE DRUG USE?NO LEARNING BARRIERS / SPECIAL NEEDS BARRIERS TO LEARNING?NO HEARING IMPAIRED?NO VISION IMPAIRED?YES COGNITIVELY IMPAIRED?NO :CORRECTIVE LENSES READINESS TO LEARN?YES LEARNING PREFERENCES?NO LEARNING CAPABILITIES PRESENT?YES EMOTIONAL BARRIERS?NO SPECIAL DEVICES?NO CABLE TECHNICIAN NEEDED?NO REVIEWED WITH PATIENT 06/23/19 1332 JS. HOSPITALIZATION/MAJOR DIAGNOSTIC PROCEDURE SURGERY MENTAL HEALTH MULTIPLE TIMES REVIEW OF SYSTEMS REVIEWED BY: PROVIDER: . CONSTITUTIONAL: ANY CHANGE IN YOUR MEDICAL CONDITION? NO . CHILLS NO . FEVER NO . INFECTION: DO YOU HAVE NEW INFECTIONS? NO . DO YOU HAVE HISTORY OF MRSA? NO . MUSCULOSKELETAL: ANY NEW PATTERNS OF PAIN OR NUMBNESS? NO . GASTROENTEROLOGY: ANY NEW CHANGE IN BOWEL CONTROL? NO . GENITOURINARY: ANY NEW CHANGE IN BLADDER CONTROL? NO . IS THERE A CHANCE YOU COULD BE ? NO . HEMATOLOGY/LYMPH: DO YOU TAKE ANY BLOOD THINNERS? (FOR EXAMPLE- COUMADIN, PLAVIX, AGGRENOX, PLATEL, PRADAXA, OR XARELTO) NO . WHEN WAS YOUR LAST DOSE? DATE: TIME: . NEUROLOGY: HAVE YOU FALLEN IN THE PAST 12 MONTHS? NO . ANY NEW EXTREMITY NUMBNESS OR WEAKNESS? NO . CARDIOLOGY: DO YOU HAVE A PACEMAKER OR DEFIBRILLATOR? NO . RESPIRATORY: HAVE YOU BEEN SICK IN THE PAST WEEK? NO . FEVER NO . FLU LIKE SYMPTOMS? NO . COUGH NO . INTEGUMENTARY: DO YOU HAVE ANY RASHES OR OPEN SORES? NO . ALLERGIC/IMMUNO: ARE YOU ALLERGIC TO IV DYE? NO . ANY NEW ALLERGIES? NO . PSYCHIATRIC: DO YOU HAVE THOUGHTS OF HURTING YOURSELF OR SOMEONE ELSE? NO . ARE YOU ABUSED, NEGLECTED, OR IN AN UNSAFE ENVIRONMENT? NO . ENDOCRINOLOGY: ARE YOU DIABETIC? NO . OTHER: DO YOU NEED ANY PRESCRIPTIONS? NO . IF YES, PLEASE LIST: ____ . ANY NEW PROBLEMS WITH YOUR MEDICATIONS? NO . WHEN DID YOU LAST EAT? ____ . WHEN DID YOU LAST DRINK? ____ . WHAT DID YOU LAST DRINK? ____ . NAME OF PERSON DRIVING YOU HOME? ____ . DO YOU HAVE ANY OTHER QUESTIONS OR CONCERNS NO . VITAL SIGNS WT 206.8 LBS, HT 62 IN, BMI 37.82 INDEX, BP 122/80 MM HG, HR 76 /MIN, RR 18 /MIN, TEMP 98.2 F, OXYGEN SAT % 100%, NA INITIALS AW 1517. ASSESSMENTS MYALGIA, OTHER SITE - M79.18 (PRIMARY) PROCEDURES PN TRIGGER POINT INJECTION WITH STEROIDS PRE PROCEDURE DIAGNOSIS 1. MYALGIA 2. PAIN AT BILATERAL NECK AREA POST PROCEDURE DIAGNOSIS 1. MYALGIA 2. PAIN AT BILATERAL NECK AREA PROCEDURE TRIGGER POINT INJECTION AT RIGHT AND LEFT NECK AREA SURGEON DR. KELLEY ASIF FIELD TRAINING MANAGER NONE ANESTHESIA LOCAL PRE PROCEDURE NOTE THE PATIENT HAS A HISTORY OF CHRONIC PAIN AT THE RIGHT AND LEFT NECK AREA. I EVALUATED THE PATIENT AND REVIEWED THE CHART. THERE IS EVIDENCE OF BANDS OF TISSUE WITH RESTRICTION OF MOVEMENT AND PRESENCE OF TRIGGER POINT AT THE AFFECTED AREA. I WENT OVER THE RISKS, ALTERNATIVES, AND BENEFITS ASSOCIATED WITH THIS PROCEDURE. THE PATIENT WOULD LIKE TO PROCEED AND GIVE CONSENT TO PERFORMED THE PROCEDURE. THE PATIENT DENIES UNEXPLAINABLE WEIGHT LOSS, FEVER, CHILLS, OR NEW CHANGES IN URINARY OR BOWEL CONTROL DESCRIPTION OF PROCEDURE THE PATIENT WAS BROUGHT TO THE PROCEDURE ROOM AND PLACED IN THE SITTING POSITION. THE AREA WAS CLEANED WITH ALCOHOL. THE PROCEDURE WAS DONE USING [employer]SEPTIC STERILE TECHNIQUE. I CHECKED LATERALITY AND THE LEVEL WHERE THE PROCEDURE WAS GOING TO BE PERFORMED WITH THE PATIENT AND THE SUPPORTING STAFF AT THE MOMENT OF THE TIME OUT IN THE PROCEDURE ROOM. USING A 25-GAUGE NEEDLE, TRIGGER POINTS WERE INJECTED AT THE RIGHT AND LEFT NECK AREA WITH A TOTAL OF 40 ML OF BUPIVACAINE 0.25% AND KENALOG 40 MG. THERE WAS NO EVIDENCE OF BLOOD, PARESTHESIA OR CEREBROSPINAL FLUID DURING THE PROCEDURE. THE PATIENT WAS SENT TO THE RECOVERY ROOM. THE PATIENT WAS MOVING THE EXTREMITIES AND DOING WELL. THERE WAS NO COMPLICATION DURING THE PROCEDURE POST PROCEDURE NOTE THE PATIENT WILL BE SEEN IN A FOLLOW UP IN THE NEXT FEW WEEKS. INSTRUCTIONS WERE GIVEN, QUESTIONS WERE ANSWERED, AND THE PATIENT EXPRESSED UNDERSTANDING AND AGREES WITH THE PLAN. I, LILLIAN SANABRIA, DOCUMENTED THE ABOVE INFORMATION ACTING A SCRIBE FOR DR. ASIF. I HAVE REVIEWED THE ABOVE DOCUMENT, WRITTEN BY LILLIAN BAIRESIBCarmela AND I VERIFY THAT IT IS ACCURATE. PROCEDURE CODES [id number] INJ TRIGGER POINT / [facility] DISPOSITION & COMMUNICATION FOLLOW UP 3 WEEKS ELECTRONICALLY SIGNED BY KELLEY ASIF MD, MD ON 08/28/2019 AT 04:38 PM EDT DISCLAIMER : THIS IS A VISIT SUMMARY EXTRACTED FROM THE [employer] CHART. IT IS NOT A COPY OF THE [employer] PROGRESS NOTE. JEREL
== END ==
LOC: M PAIN 15:15
PROVIDERS: ATTEND Anesthesiology
DX: M79.18 Myalgia, other site (principal); M79.7 Fibromyalgia; F31.9 Bipolar disorder, unspecified; E78.00 Pure hypercholesterolemia, unspecified; E55.9 Vitamin D deficiency, unspecified; G43.909 Migraine, unspecified, not intractable, without status migrainosus; K21.9 Gastro-esophageal reflux disease without esophagitis; J32.9 Chronic sinusitis, unspecified; K64.9 Unspecified hemorrhoids; J45.909 Unspecified asthma, uncomplicated; G89.29 Other chronic pain; F17.210 Nicotine dependence, cigarettes, uncomplicated; Z79.899 Other long term (current) drug therapy; Z91.040 Latex allergy status; Z91.041 Radiographic dye allergy status; Z91.018 Allergy to other foods; Z88.8 Allergy status to other drugs, medicaments and biological substances
CPT/HCPCS: 20552; J3301

== ENCOUNTER → 2019-08-25 | Outpatient (CLI) | payer OTHER ==
[~2019-08-25] MED LIST changes: -BUPIVACAINE HCL 0.25% 10 ML VIAL As Ordered ONE; -BUPIVACAINE HCL 0.25% 30 ML VIAL As Ordered ONE; +E-Z-GAS II EFFERVESCENT PACKET (SODIUM BICARB./CITRIC ACID/SIMETHICONE) As Ordered ONE; +E-Z-HD 98% w/w 340GM SUSP BTL As Ordered ONE; +E-Z-PAQUE 96% w/w SUSP 176GM BTL As Ordered ONE; -TRIAMCINOLONE ACETONIDE SUSP 40 MG/ML VIAL (J3301) As Ordered ONE; -diazePAM 5 MG TAB As Ordered ONE; -oxyCODONE 5MG TAB As Ordered ONE
--- NOTE | 2019-08-25 17:40 | REP ---
Esophagram The procedure was performed under the direct supervision of Dr. Peace. The images were reviewed with Dr. Peace. A single view PA chest x-ray is submitted as a loader operator film. The superior mediastinal structures are midline. The heart size is within normal limits. The lungs are clear. There is an anterior cervical fixation plate extending from the C5-C7 vertebrae. Liquid barium and gas producing granules were given in the erect position as well as liquid barium in the prone oblique positions in order to perform a double contrast esophagram examination. The oral and pharyngeal stages of deglutition are unremarkable. Esophageal transport is prompt and efficient and there is no esophagitis, stricture, mucosal ring or hiatal hernia. There is gastroesophageal reflux demonstrated to above the level of the елена. Impression: There is gastroesophageal reflux demonstrated to above the level of the елена. Otherwise, unremarkable double contrast esophagram examination. 0.4 minutes of fluoro time was utilized for this procedure. Electronically Signed by WU Mijares 08/25/2019 01:28 P Electronically Signed by Chris Peace MD 08/25/2019 05:31 P
== END ==
LOC: M RAD 07:33
PROVIDERS: ATTEND Physician Assistant Medical
DX: R13.10 Dysphagia, unspecified (principal); K21.9 Gastro-esophageal reflux disease without esophagitis

== ENCOUNTER → 2019-08-30 | Outpatient (CLI) | payer OTHER ==
[~2019-08-30] MED LIST changes: +ALBU8.5H INH; -E-Z-GAS II EFFERVESCENT PACKET (SODIUM BICARB./CITRIC ACID/SIMETHICONE) As Ordered ONE; -E-Z-HD 98% w/w 340GM SUSP BTL As Ordered ONE; -E-Z-PAQUE 96% w/w SUSP 176GM BTL As Ordered ONE; +HYDR-3719 PO; +LORA-674 PO; +NARA2.5T PO; +PANT40TA3 PO; +PREG50CA2 PO; +PROP20TA72 PO; +SERT50TA29 PO; +VENL37.598 PO
--- NOTE | 2019-09-12 11:42 | ECWPNPC ---
PATIENT NAME: NATALIE GARCIA : 1985 GENDER: FEMALE VISIT DATE: 08/30/2019 DISCHARGE DATE: 08/30/19 1037 VISIT LOCKED DATE TIME: PHYSICIAN: LAURA GARRETT RESOURCE: LAURA GARRETT REASON FOR APPOINTMENT 1. POST TPI HISTORY OF PRESENT ILLNESS HISTORY OF PRESENT ILLNESS: PAIN THE PATIENT DESCRIBES THE PAIN... 34-YEAR-OLD FEMALE IN FOR POST TRIGGER POINT INJECTIONS. SHE RATES HER PAIN PREPROCEDURE AT A 10 OUT OF 10 AND POST PROCEDURE 6 A 7 OUT OF 10 AND STATES IT WAS AT THAT LEVEL FOR ABOUT THE FIRST COUPLE OF DAYS. SHE RATES HER PAIN CURRENTLY AT A 9 OUT OF 10 AND DESCRIBES IT ACHING, BURNING, STABBING, AND SHOOTING. FALL RISK SCREENING: SCREENING :NO FALLS REPORTED IN THE LAST YEAR CURRENT MEDICATIONS TAKING VENTOLIN HFA 108 (90 BASE) MCG/ACT AEROSOL SOLUTION 2 PUFFS NEEDED INHALATION EVERY 4 HRS TAKING TOPAMAX 100 100MG TABLET 100 MG IN AM, 150 MG AT NIGHT ORAL TWICE DAILY TAKING INDERAL 20 MG TABLET PO BID TAKING PROTONIX 40 MG TABLET DELAYED RELEASE 1 TABLET ORALLY BID TAKING NARATRIPTAN HCL 2.5 MG TABLET 1 TABLET NEEDED ONE TIME ORALLY ONCE A DAY TAKING LYRICA 50 MG CAPSULE 50 MG IN AM, 150 MG IN PM ORALLY BID TAKING VENLAFAXINE HCL ER 75 MG CAPSULE EXTENDED RELEASE 24 HOUR 1 CAPSULE WITH FOOD ORALLY ONCE A DAY TAKING LORATADINE 10 MG TABLET 1 TABLET ORALLY ONCE A DAY TAKING ZOLOFT 25 MG TABLET 1 TABLET ORALLY ONCE A DAY NOT-TAKING TRAZODONE HCL 300 MG TABLET 0.5 TABLET AT BEDTIME ORALLY ONCE A DAY, NOTES: STATES IT'S NOT WORKING NOT-TAKING CARAFATE 1 GM TABLET 1 TABLET ON AN EMPTY STOMACH ORALLY 4 TIMES A DAY NOT-TAKING ZOFRAN 8 MG TABLET 1 TABLET ORALLY Q 6 HRS PRN NAUSEA NOT-TAKING ARNUITY ELLIPTA 100 MCG/ACT AEROSOL POWDER BREATH ACTIVATED 1 PUFF INHALATION ONCE A DAY NOT-TAKING ESCITALOPRAM OXALATE 5 MG TABLET 2 TABLETS ORALLY ONCE A DAY NOT-TAKING GABAPENTIN 300 MG CAPSULE 1 CAPSULE ORALLY THREE TIMES A DAY NOT-TAKING VALIUM 5 MG TABLET 1 TABLET ORALLY 2X/DAY NEEDED FOR SPASM OR ANXIETY MDD=2 45 TABS FOR 30 DAYS NOT-TAKING PERCOCET 5-325 MG TABLET 1 TABLET NEEDED ORALLY EVERY 8 HRS PRN PAIN MDD=3 MEDICATION LIST REVIEWED AND RECONCILED WITH THE PATIENT PAST MEDICAL HISTORY FIBROMYALGIA BIPOLAR HIGH CHOLESTEROL VIT D DEFICIENCY MIGRANE GERD SINUSITIS HEMORRHOIDS ASTHMA CHRONIC PAIN ALLERGIES LATEX: HIVES - ALLERGY IV CONTRAST DYE: HIVES - ALLERGY STRAWBERRIES: THROAT CLOSES - ALLERGY PINEAPPLE: THROAT CLOSES - ALLERGY SEASONAL: SINUS CONGESTION - ALLERGY CYMBALTA: DIARRHEA - SIDE EFFECTS SURGICAL HISTORY RIGHT ANKLE SURGERY 2016 HYSTERECTOMY 2015 NECK SURGERY 11/2018 FAMILY HISTORY FATHER: FATHER- LUNG CANCER BROTHER HAS LUPUS AND GRAVES DISEASE. SOCIAL HISTORY GENERAL: TOBACCO USE ARE YOU A:CURRENT SMOKER ARE YOU INTERESTED IN QUITTING?THINKING ABOUT QUITTING COUNSELED THE PATIENT ON SMOKING CESSATION, EDUCATION [id number] HOW MANY CIGARETTES A DAY DO YOU SMOKE?5 OR LESS HOW SOON AFTER YOU WAKE UP DO YOU SMOKE YOUR FIRST CIGARETTE?31-60 MIN HOW OFTEN DO YOU SMOKE CIGARETTES?EVERY DAY PATIENT COUNSELED ON THE DANGERS OF TOBACCO USE AND URGED TO QUIT:08/30/2019 PAIN CLINIC PFS, CLERGY, PUBLIC HEALTH REFERRALS PFS REFERRAL NEEDED?NO CLERGY REFERRAL NEEDED?NO PUBLIC HEALTH REFERRAL NEEDED?NO WAS THE PROVIDER NOTIFIED OF ANY PERTINENT INFO?NO HAS THE PATIENT BEEN EDUCATED REGARDING HIS/HER PLAN OF CARE?YES HAS THE PATIENT BEEN EDUCATED REGARDING PAIN, THE RISK FOR PAIN, THE IMPORTANCE OF EFFECTIVE PAIN MANAGEMENT, AND THE PAIN ASSESSMENT PROCESS?YES LATEX QUESTIONNAIRE LATEX ALLERGY : HAVE YOU EVER DEVELOPED ANY TYPE OF REACTION AFTER HANDLING LATEX PRODUCTS SUCH RUBBER GLOVES, CONDOMS, DIAPHRAGMS, BALLOONS, SOCKS, OR UNDERWEAR?YES DATE ASKED : 06/23/2019 PATIENT HAS ACTIVE LATEX ALLERGY. CAFFEINE CAFFEINE USE?YES HOW OFTEN AND HOW MUCH? LOTS DAILY ADVANCE DIRECTIVE ADVANCE DIRECTIVE DISCUSSED WITH PATIENT:YES PT DECLINES HCP INFORMATION AT THIS TIME. MORMON [id number] NONE LANGUAGE LANGUAGES SPOKEN:GERMAN ALCOHOL SCREENING DID YOU HAVE A DRINK CONTAINING ALCOHOL IN THE PAST YEAR?NO POINTS0 INTERPRETATIONNEGATIVE RECREATIONAL DRUG USE DRUG USE?NO LEARNING BARRIERS / SPECIAL NEEDS BARRIERS TO LEARNING?NO HEARING IMPAIRED?NO VISION IMPAIRED?YES COGNITIVELY IMPAIRED?NO :CORRECTIVE LENSES READINESS TO LEARN?YES LEARNING PREFERENCES?NO LEARNING CAPABILITIES PRESENT?YES EMOTIONAL BARRIERS?NO SPECIAL DEVICES?NO WOOD TREATING INSPECTOR NEEDED?NO REVIEWED WITH PATIENT 06/23/19 [id number] JSREVIEWED WITH PT 08/30/19 5424 CARLEEN. HOSPITALIZATION/MAJOR DIAGNOSTIC PROCEDURE SURGERY MENTAL HEALTH MULTIPLE TIMES REVIEW OF SYSTEMS REVIEWED BY: PROVIDER: ABELARDO GARRETT RN ADMIT-C . CONSTITUTIONAL: ANY CHANGE IN YOUR MEDICAL CONDITION? NO . CHILLS NO . FEVER NO . INFECTION: DO YOU HAVE NEW INFECTIONS? NO . DO YOU HAVE HISTORY OF MRSA? NO . MUSCULOSKELETAL: ANY NEW PATTERNS OF PAIN OR NUMBNESS? YES- STATES TPI WORKED FOR ABOUT 4 DAYS, STATES HER PAIN IS BACK TO PRE PROCEDURE LEVEL . GASTROENTEROLOGY: ANY NEW CHANGE IN BOWEL CONTROL? NO . GENITOURINARY: ANY NEW CHANGE IN BLADDER CONTROL? NO . IS THERE A CHANCE YOU COULD BE ? NO . HEMATOLOGY/LYMPH: DO YOU TAKE ANY BLOOD THINNERS? (FOR EXAMPLE- COUMADIN, PLAVIX, AGGRENOX, PLATEL, PRADAXA, OR XARELTO) NO . WHEN WAS YOUR LAST DOSE? DATE: TIME: . NEUROLOGY: HAVE YOU FALLEN IN THE PAST 12 MONTHS? NO . ANY NEW EXTREMITY NUMBNESS OR WEAKNESS? YES- STATES SHE HAS PAIN IN BIATERAL LEGS, STATES SHE HAS ALREADY TOLD US AND PALLIATIVE CARE ABOUT LEGS . CARDIOLOGY: DO YOU HAVE A PACEMAKER OR DEFIBRILLATOR? NO . RESPIRATORY: HAVE YOU BEEN SICK IN THE PAST WEEK? NO . FEVER NO . FLU LIKE SYMPTOMS? NO . COUGH NO . INTEGUMENTARY: DO YOU HAVE ANY RASHES OR OPEN SORES? NO . ALLERGIC/IMMUNO: ARE YOU ALLERGIC TO IV DYE? YES . ANY NEW ALLERGIES? NO . PSYCHIATRIC: DO YOU HAVE THOUGHTS OF HURTING YOURSELF OR SOMEONE ELSE? NO . ARE YOU ABUSED, NEGLECTED, OR IN AN UNSAFE ENVIRONMENT? NO . ENDOCRINOLOGY: ARE YOU DIABETIC? NO . OTHER: DO YOU NEED ANY PRESCRIPTIONS? NO . IF YES, PLEASE LIST: ____ . ANY NEW PROBLEMS WITH YOUR MEDICATIONS? NO . WHEN DID YOU LAST EAT? ____ . WHEN DID YOU LAST DRINK? ____ . WHAT DID YOU LAST DRINK? ____ . NAME OF PERSON DRIVING YOU HOME? ____ . DO YOU HAVE ANY OTHER QUESTIONS OR CONCERNS YES- STATES TPI WORKED FOR ABOUT 4 DAYS, STATES THE PAIN HAS RETURNED IN NECK, AND RADIATES TO FRONT OF FACE AND FOREHEAD AREA . VITAL SIGNS WT 205.8 LBS, HT 62 IN, BMI 37.64 INDEX, BP 119/64 MM HG, HR 76 /MIN, RR 18 /MIN, TEMP 98.0 F, OXYGEN SAT % 99%, SAFE IN ENV? (Y/N) YES, NA INITIALS AW 0955, REVIEWED BY: CARLEEN. EXAMINATION GENERAL EXAMINATION: GENERALNO ACUTE DISTRESS, WELL NOURISHED AND HYDRATED. PSYCHAPPROPRIATE MOOD AND AFFECT . NECK:POINT TENDER UPPER NECK OCCIPITAL REGION SURROUNDING SKIN SHOWS NO ERYTHEMA, ECCHYMOSIS, INCREASED WARMTH, AND/OR SKIN ERUPTIONS NOTED. . LUNGS:CLEAR TO AUSCULTATION BILATERALLY, NO WHEEZES, RHONCHI, RALES. HEART:NO MURMURS, REGULAR RATE AND RHYTHM. ASSESSMENTS MYALGIA, OTHER SITE - M79.18 (PRIMARY) TREATMENT MYALGIA, OTHER SITE NOTES: BILATERAL OCCIPITAL BLOCK. CLINICAL NOTES: 34-YEAR-OLD FEMALE IN FOR POST TPI FOLLOW-UP. GIVEN PRESENTING SYMPTOMS AND RESULTS PHYSICAL EXAMINATION RECOMMENDED BILATERAL OCCIPITAL BLOCKS. PATIENT HAS EXPRESSED UNDERSTANDING OF AND WAS IN AGREEMENT WITH TREATMENT PLAN. GIVEN TIME TO ASK QUESTIONS AND EXPRESS CONCERNS. PREVENTIVE MEDICINE PAIN CLINIC TEACHING: PROCEDURE TEACHING OCCIPITAL BLOCK TEACHING REVIEWED WITH PT, PT DECLINED PRINTED INFORMATION 08/30/19 1037 CARLEEN. PROCEDURE CODES FA211 ESTABILISHED PATIENT [facility] CHARGE DISPOSITION & COMMUNICATION FOLLOW UP POSTPROCEDURE (REASON: BILATERAL OCCIPITAL BLOCK) ELECTRONICALLY SIGNED BY GANGA MILLAN ON 08/31/2019 AT 08:50 AM EDT DISCLAIMER : THIS IS A VISIT SUMMARY EXTRACTED FROM THE [employer] CHART. IT IS NOT A COPY OF THE [employer] PROGRESS NOTE. JEREL
== END ==
LOC: M PAIN 10:00
PROVIDERS: ATTEND Family Medicine
DX: M79.18 Myalgia, other site (principal); Z86.59 Personal history of other mental and behavioral disorders; G43.909 Migraine, unspecified, not intractable, without status migrainosus; K21.9 Gastro-esophageal reflux disease without esophagitis; J45.909 Unspecified asthma, uncomplicated; F17.210 Nicotine dependence, cigarettes, uncomplicated; Z88.8 Allergy status to other drugs, medicaments and biological substances; Z91.018 Allergy to other foods; Z91.040 Latex allergy status; Z91.041 Radiographic dye allergy status; Z79.899 Other long term (current) drug therapy

== ENCOUNTER → 2019-10-12 | Outpatient (CLI) | payer OTHER ==
[2019-10-12 15:26] LABS: BASO # 0.1 10^3/uL (0.0-0.2); BASO % 0.7 % (0.0-1.0); EOS # 0.3 10^3/uL (0.0-0.5); EOS % 4.3 % (0.0-3.0); HEMATOCRIT 43.8 % (36.0-47.0); HEMOGLOBIN 14.7 g/dl (12.0-15.5); LYMPH # 2.7 10^3/uL (1.5-5.0); LYMPH % 36.1 % (24.0-44.0); MEAN CORPUSCULAR HGB CONC 33.6 g/dl (32.0-36.5); MEAN CORPUSCULAR VOLUME 98.2 fl (80.0-96.0); MONO # 0.9 10^3/uL (0.0-0.8); NEUTROPHILS # 3.5 10^3/uL (1.5-8.5); NEUTROPHILS % 46.5 % (36.0-66.0); PLATELET COUNT, AUTOMATED 235 10^3/uL (150-450); RED BLOOD COUNT 4.46 10^6/uL (4.00-5.40); WHITE BLOOD COUNT 7.4 10^3/uL (4.0-10.0)
[2019-10-12 16:00] LABS: ERYTHROCYTE SEDIMENTATION RATE 36 mm/hr (0-20)
[2019-10-14 10:40] LABS: ANTINUCLEAR ANTIBODIES DIRECT Negative (Negative)
== END ==
LOC: M LAB 14:07
PROVIDERS: ATTEND Nurse Practitioner Family
DX: M47.812 Spondylosis without myelopathy or radiculopathy, cervical region (principal); D68.62 Lupus anticoagulant syndrome

== ENCOUNTER 2019-11-02 03:48 | Emergency (ER) | payer OTHER ==
[~2019-11-02] VITALS: Ht 157.5 cm; Wt 91.8 kg
[2019-11-02 03:48] VITALS: BP 136/79
== END 2019-11-02 05:03 | disposition left against medical advice (07) ==
LOC: M ED 03:48
DX: Z53.01 Procedure and treatment not carried out due to patient smoking (principal)

== ENCOUNTER 2019-11-07 00:18 | Emergency (ER) | payer OTHER ==
[2019-11-07] MEDS ORDERED: KETOROLAC 30 MG/ML VIAL (J1885) IV ONE (01:30)
[2019-11-07] MEDS ORDERED: METOCLOPRAMIDE INJ 10MG/2ML VIAL (J2765) IV ONE (01:30)
[2019-11-07 03:17] VITALS: BP 121/65
--- NOTE | 2019-11-07 08:08 | REP ---
KUB: Single view. History: O P A induced constipation. Comparison study: November 26, 2016. Findings: Formed stool is seen throughout the colon although there is no pathologic colonic dilation. No small bowel dilation is seen. Flank stripes are intact. Psoas margins are symmetric. No pathologic calcification is seen. Impression: Moderate stool. Otherwise negative. Electronically Signed by Benjamín Brown MD 11/07/2019 08:00 A
== END 2019-11-07 03:18 | disposition home or self-care (01) ==
LOC: M ED 00:18
DX: G43.909 Migraine, unspecified, not intractable, without status migrainosus (principal); G89.4 Chronic pain syndrome; K59.03 Drug induced constipation; F41.9 Anxiety disorder, unspecified; F31.89 Other bipolar disorder; K21.9 Gastro-esophageal reflux disease without esophagitis; F17.200 Nicotine dependence, unspecified, uncomplicated; Z91.041 Radiographic dye allergy status; Z91.040 Latex allergy status; Z91.018 Allergy to other foods; Z88.8 Allergy status to other drugs, medicaments and biological substances
CPT/HCPCS: 74018; 96374; 96375; 99284; J1885; J2765

== ENCOUNTER 2020-06-19 09:40 | Day surgery (SDC) | payer MEDICARE, MEDICAID ==
[~2020-06-19] VITALS: Ht 157.5 cm; Wt 97.1 kg
[~2020-06-19 09:40] MED LIST changes: +ARNU1INH3 IN; +GALC120S SQ; +PANT40TA29 PO; -PANT40TA3 PO; +ZINC1TAB2 PO
[2020-06-19] MEDS ORDERED: propofoL 200 MG/20 ML VIAL As Ordered ONE (10:45)
[2020-06-19] MEDS ORDERED: LIDOCAINE 2% 100MG/5ML SDV (FOR ANES.) As Ordered ONE (10:45)
== END 2020-06-19 11:14 | disposition home or self-care (01) ==
LOC: M OPP 09:40
PROVIDERS: ATTEND Internal Medicine Gastroenterology
DX: R10.13 Epigastric pain (principal); R12 Heartburn; D12.5 Benign neoplasm of sigmoid colon; K21.9 Gastro-esophageal reflux disease without esophagitis; J45.909 Unspecified asthma, uncomplicated; F32.9 Major depressive disorder, single episode, unspecified; F43.10 Post-traumatic stress disorder, unspecified; M79.7 Fibromyalgia; F31.9 Bipolar disorder, unspecified; F17.218 Nicotine dependence, cigarettes, with other nicotine-induced disorders; G47.30 Sleep apnea, unspecified; Z91.041 Radiographic dye allergy status; Z91.040 Latex allergy status; Z88.8 Allergy status to other drugs, medicaments and biological substances; Z91.018 Allergy to other foods; Z79.51 Long term (current) use of inhaled steroids; Z79.899 Other long term (current) drug therapy

== ENCOUNTER → 2020-07-26 | Outpatient (CLI) | payer MEDICARE, MEDICAID | LOC: M PAIN 11:04 | PROVIDERS: ATTEND Family Medicine | DX: M79.18 Myalgia, other site (principal) ==

== ENCOUNTER → 2020-08-05 | Outpatient (CLI) | payer MEDICARE, MEDICAID | LOC: M LABSMTC 11:20 | PROVIDERS: ATTEND Anesthesiology | DX: Z11.59 Encounter for screening for other viral diseases (principal); Z20.828 Contact with and (suspected) exposure to other viral communicable diseases | CPT/HCPCS: C9803; U0003 ==

== ENCOUNTER → 2020-08-14 | Outpatient (CLI) | payer MEDICARE, MEDICAID ==
--- NOTE | 2020-08-23 10:07 | REP ---
LIMITED ABDOMINAL ULTRASOUND CLINICAL: Epigastric pain. TECHNIQUE: Real-time lopez scale ultrasound examination using high frequency transducer. FINDINGS: Directed ultrasound examination in the epigastric region at the site of maximal pain and tenderness demonstrates a small 1.7 cm defect in the abdominal wall suggesting very subtle early fat-containing hernia. Findings do not change on Valsalva. No further abnormalities are identified. IMPRESSION: Possible small forming supraumbilical fat-containing hernia measuring 1.7 cm in diameter. MTDD
== END ==
LOC: M RAD 06:59
PROVIDERS: ATTEND Physician Assistant Medical
DX: R10.13 Epigastric pain (principal)

== ENCOUNTER → 2020-08-17 | Outpatient (CLI) | payer MEDICARE, MEDICAID | LOC: M PAIN 10:03 | PROVIDERS: ATTEND Anesthesiology | DX: M79.18 Myalgia, other site (principal) ==

== ENCOUNTER → 2020-09-17 | Outpatient (CLI) | payer MEDICARE, MEDICAID ==
--- NOTE | 2020-09-18 09:12 | ECWPNPC ---
PATIENT NAME: NATALIE GARCIA : 1985 GENDER: FEMALE VISIT DATE: 09/17/2020 DISCHARGE DATE: 09/17/20 1228 VISIT LOCKED DATE TIME: PHYSICIAN: LAURA GARRETT RESOURCE: LAURA GARRETT REASON FOR APPOINTMENT 1. FOLLOW UP ON PT AND ALLERGY TEST HISTORY OF PRESENT ILLNESS GENERAL: - 35-YEAR-OLD FEMALE IN FOR CHRONIC PAIN FOLLOW-UP. SHE RATES HER PAIN CURRENTLY AT A 10 OUT OF 10 AND DESCRIBES IT ACHING, BURNING, CONTINUOUS, SHARP, STABBING, TENDER, THROBBING, AND SHOOTING. PATIENT WAS TO HAVE ALLERGY TESTING AND PHYSICAL THERAPY BOTH OF WHICH SHE HAS NOT HAD A CHANCE TO COMPLETE. FALL RISK SCREENING: SCREENING :NO FALLS REPORTED IN THE LAST YEAR PAIN SCREENING: PATIENT HAS A COMPLAINT OF ACUTE OR CHRONIC PAIN :YES LOCATION OF PAIN:NECK, LEFT SHOULDER, RIGHT SHOULDER, UPPER BACK INTENSITY OF PAIN (SCALE OF 1 TO 10):10 WHAT DOES YOUR PAIN FEEL LIKE:ACHING, BURNING, CONTINOUS, SHARP, STABBING, TENDER, THROBBING, SHOOTING DURATION:CONTINOUS, CONSTANT, STEADY PAIN IS INCREASED BY:ACTIVITIES PAIN IS DECREASED BY:USE OF PAIN MEDICATIONS, OTHERS TENS NURSING NOTE: -. PAIN CENTER INTAKE QUESTIONS: DO YOU HAVE A HISTORY OF MRSA? :NO DO YOU TAKE A BLOOD THINNERS? :NO DO YOU HAVE ANY BLEEDING DISORDERS? :NO ANY NEW NUMBNESS OR WEAKNESS IN YOUR LEGS OR ARMS? :YES NOTES NEW NUMBNESS AND PAIN IN RIGHT WRIST. EVALUATED AT [facility] ER. XRAYS NEGATIVE PER PT. ANY PACEMAKER,DEFIBRILLATOR, OR DORSAL COLUMN STIMULATOR? :NO DO YOU HAVE ANY RASHES OR OPEN SORES? :NO ARE YOU ALLERGIC TO IV DYE? :YES NOTES HX OF THROAT SWELLING WITH CT DYE ARE YOU DIABETIC? :NO ANY NEW PROBLEMS WITH YOUR MEDICATIONS? :NO HAVE YOU RECEIVED A VACCINE IN THE PAST 30 DAYS? :NO DO YOU PLAN TO RECEIVE A VACCINE IN THE NEXT 21 DAYS? :YES IF SO WHAT VACCINE AND WHEN? FLU VACCINE 09/21 DO YOU NEED ANY PRESCRIPTION? :NO DO YOU TAKE ANY IMMUNOSUPPRESSIVE MEDICATIONS? :NO IS THERE A CHANCE YOU COULD BE ? :NO ARE YOU BREAST FEEDING? :NO CURRENT MEDICATIONS TAKING VENTOLIN HFA 108 (90 BASE) MCG/ACT AEROSOL SOLUTION 2 PUFFS NEEDED INHALATION EVERY 4 HRS TAKING INDERAL 20 MG TABLET PO BID TAKING PROTONIX 40 MG TABLET DELAYED RELEASE 1 TABLET ORALLY BID TAKING NARATRIPTAN HCL 2.5 MG TABLET 1 TABLET NEEDED ONE TIME ORALLY ONCE A DAY TAKING LYRICA 100 MG CAPSULE 100 MG IN AM, 200 MG IN PM ORALLY TAKING LORATADINE 10 MG TABLET 1 TABLET ORALLY ONCE A DAY TAKING HYDROCODONE-ACETAMINOPHEN 10-325 MG TABLET 1 TABLET NEEDED ORALLY 3 X/DAY NEEDED TAKING ARNUITY ELLIPTA 200 MCG/ACT AEROSOL POWDER BREATH ACTIVATED 1 PUFF INHALATION ONCE A DAY TAKING EMGALITY 120 MG/ML SOLUTION AUTO-INJECTOR DIRECTED SUBCUTANEOUS TAKING SOMA 350 MG TABLET 1 TABLET NEEDED ORALLY THREE TIMES A DAY NOT-TAKING TOPAMAX 100 100MG TABLET 100 MG IN AM, 150 MG AT NIGHT ORAL TWICE DAILY NOT-TAKING TESSALON PERLES 100 MG CAPSULE 1 CAP ORALLY THREE TIMES DAILY NOT-TAKING VENLAFAXINE HCL ER 75 MG CAPSULE EXTENDED RELEASE 24 HOUR 1 CAPSULE WITH FOOD ORALLY ONCE A DAY MEDICATION LIST REVIEWED AND RECONCILED WITH THE PATIENT PAST MEDICAL HISTORY FIBROMYALGIA BIPOLAR HIGH CHOLESTEROL VIT D DEFICIENCY MIGRANE GERD SINUSITIS HEMORRHOIDS ASTHMA CHRONIC PAIN PTSD LOW BACK PAIN ALLERGIES LATEX: HIVES - ALLERGY IV CONTRAST DYE: HIVES - ALLERGY STRAWBERRIES: THROAT CLOSES - ALLERGY PINEAPPLE: THROAT CLOSES - ALLERGY SEASONAL: SINUS CONGESTION - ALLERGY CYMBALTA: DIARRHEA - SIDE EFFECTS LIDOCAINE: ANGIOEDEMA - ALLERGY DEXAMETHASONE: ANGIOEDEMA - ALLERGY SURGICAL HISTORY RIGHT ANKLE SURGERY 2016 HYSTERECTOMY 2015 NECK SURGERY 11/2018 FAMILY HISTORY FATHER: FATHER- LUNG CANCER BROTHER HAS LUPUS AND GRAVES DISEASE. SOCIAL HISTORY GENERAL: TOBACCO USE ARE YOU A:CURRENT SMOKER ARE YOU INTERESTED IN QUITTING?THINKING ABOUT QUITTING HAS CUT DOWN COUNSELED THE PATIENT ON SMOKING CESSATION, EDUCATION [id number]/03/2019 HOW MANY CIGARETTES A DAY DO YOU SMOKE?5 OR LESS HOW SOON AFTER YOU WAKE UP DO YOU SMOKE YOUR FIRST CIGARETTE?31-60 MIN HOW OFTEN DO YOU SMOKE CIGARETTES?EVERY DAY PATIENT COUNSELED ON THE DANGERS OF TOBACCO USE AND URGED TO QUIT:10/25/2019 LATEX QUESTIONNAIRE LATEX ALLERGY : HAVE YOU EVER DEVELOPED ANY TYPE OF REACTION AFTER HANDLING LATEX PRODUCTS SUCH RUBBER GLOVES, CONDOMS, DIAPHRAGMS, BALLOONS, SOCKS, OR UNDERWEAR?YES DATE ASKED : 09/17/2020 PATIENT HAS ACTIVE LATEX ALLERGY. ALCOHOL SCREENING DID YOU HAVE A DRINK CONTAINING ALCOHOL IN THE PAST YEAR?NO POINTS0 INTERPRETATIONNEGATIVE RECREATIONAL DRUG USE DRUG USE?NO CAFFEINE CAFFEINE USE?YES HOW OFTEN AND HOW MUCH? 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 AD REVIEWED WITH PATIENT 06/23/19 1332 JSREVIEWED WITH PT 08/30/19 0948 [id number] PRE-SCREENING CALL COMPLETED. PT NOT FEELING WELL AT TIME OF CALL. VOICE HOARSE WITH HARSH COUGH. SHE STATED SHE HAD BEEN FIGHTING BEING SICK SINCE BEFORE AND THAT SHE JUST COMPETED AN ANTIBIOTIC ON 10/23/19. SHE WAS ADVISED TO CALL AND RESCHEDULE PROCEDURE APPT. IF NOT FEELING BETTER BY FRI. SHE VERBALIZED UNDERSTANDING. AD. HOSPITALIZATION/MAJOR DIAGNOSTIC PROCEDURE SURGERY MENTAL HEALTH MULTIPLE TIMES REVIEW OF SYSTEMS CONSTITUTIONAL: ANY RECENT FEVER NO . CHILLS NO . WEIGHT CHANGE OF UNKNOWN REASONS NO . GASTROENTEROLOGY: NEW UNEXPLAINABLE CHANGES IN BOWEL CONTROL NO . CONSTIPATION NO . GENITOURINARY: ANY NEW CHANGE IN BLADDER CONTROL? NO . NEUROLOGY: NEW ONSET DIZZINESS OR NEUROLOGICAL CHANGES NOT MENTIONED NO . NEW NUMBNESS OR PAIN PATTERNS NOT MENTIONED AND PERTINENT TO TODAY'S VISIT NO . CARDIOLOGY: NEW CHEST PRESSURE NO . NEW CHEST PAIN NO . RESPIRATORY: UNEXPLAINABLE COUGH NO . NEW SHORTNESS OF BREATH NO . VITAL SIGNS WT 232 LBS, HT 62 IN, BMI 42.43 INDEX, BP 132/73 MM HG, HR 92 /MIN, RR 18 /MIN, TEMP 99.1 F, OXYGEN SAT % 96%, SAFE IN ENV? (Y/N) YES, NA INITIALS SC 11:27, REVIEWED BY: SHAINA. EXAMINATION GENERAL EXAMINATION: GENERALNO ACUTE DISTRESS, WELL NOURISHED AND HYDRATED. PSYCHAPPROPRIATE MOOD AND AFFECT . LUNGS:CLEAR TO AUSCULTATION BILATERALLY, NO WHEEZES, RHONCHI, RALES. HEART:NO MURMURS, REGULAR RATE AND RHYTHM. ASSESSMENTS INTERVERTEBRAL DISC DISORDER WITH RADICULOPATHY OF LUMBAR REGION - M51.16 (PRIMARY) TREATMENT INTERVERTEBRAL DISC DISORDER WITH RADICULOPATHY OF LUMBAR REGION CLINICAL NOTES: 35-YEAR-OLD FEMALE IN FOR CHRONIC PAIN FOLLOW-UP. GIVEN PRESENTING SYMPTOMS RECOMMEND FOLLOW-UP IN 2 MONTHS SO WE CAN REVIEW PROGRESS WITH PT AND ALLERGY TESTING AT THAT TIME. PATIENT HAS EXPRESSED UNDERSTANDING OF AND WAS IN AGREEMENT WITH TREATMENT PLAN. GIVEN TIME TO ASK QUESTIONS AND EXPRESS CONCERNS. REFERRAL TO:PHYSICAL THERAPY [facility] REASON:STRENGTHENING AND STRETCHING PROCEDURE CODES FA211 ESTABILISHED PATIENT [facility] CHARGE DISPOSITION & COMMUNICATION FOLLOW UP 2 MONTHS (REASON: BACK PAIN, PT FOLLOW-UP) ELECTRONICALLY SIGNED BY GANGA MILLAN ON 09/18/2020 AT 09:11 AM EDT DISCLAIMER : THIS IS A VISIT SUMMARY EXTRACTED FROM THE [employer] CHART. IT IS NOT A COPY OF THE [employer] PROGRESS NOTE. JEREL
--- NOTE | 2020-09-18 09:14 | ECWPNPC ---
PATIENT NAME: NATALIE GARCIA : 1985 GENDER: FEMALE VISIT DATE: 09/17/2020 DISCHARGE DATE: 09/17/20 1228 VISIT LOCKED DATE TIME: PHYSICIAN: LAURA GARRETT RESOURCE: LAURA GARRETT REASON FOR APPOINTMENT 1. FOLLOW UP ON PT AND ALLERGY TEST HISTORY OF PRESENT ILLNESS GENERAL: - 35-YEAR-OLD FEMALE IN FOR CHRONIC PAIN FOLLOW-UP. SHE RATES HER PAIN CURRENTLY AT A 10 OUT OF 10 AND DESCRIBES IT ACHING, BURNING, CONTINUOUS, SHARP, STABBING, TENDER, THROBBING, AND SHOOTING. PATIENT WAS TO HAVE ALLERGY TESTING AND PHYSICAL THERAPY BOTH OF WHICH SHE HAS NOT HAD A CHANCE TO COMPLETE. FALL RISK SCREENING: SCREENING :NO FALLS REPORTED IN THE LAST YEAR PAIN SCREENING: PATIENT HAS A COMPLAINT OF ACUTE OR CHRONIC PAIN :YES LOCATION OF PAIN:NECK, LEFT SHOULDER, RIGHT SHOULDER, UPPER BACK INTENSITY OF PAIN (SCALE OF 1 TO 10):10 WHAT DOES YOUR PAIN FEEL LIKE:ACHING, BURNING, CONTINOUS, SHARP, STABBING, TENDER, THROBBING, SHOOTING DURATION:CONTINOUS, CONSTANT, STEADY PAIN IS INCREASED BY:ACTIVITIES PAIN IS DECREASED BY:USE OF PAIN MEDICATIONS, OTHERS TENS NURSING NOTE: -. PAIN CENTER INTAKE QUESTIONS: DO YOU HAVE A HISTORY OF MRSA? :NO DO YOU TAKE A BLOOD THINNERS? :NO DO YOU HAVE ANY BLEEDING DISORDERS? :NO ANY NEW NUMBNESS OR WEAKNESS IN YOUR LEGS OR ARMS? :YES NOTES NEW NUMBNESS AND PAIN IN RIGHT WRIST. EVALUATED AT [facility] ER. XRAYS NEGATIVE PER PT. ANY PACEMAKER,DEFIBRILLATOR, OR DORSAL COLUMN STIMULATOR? :NO DO YOU HAVE ANY RASHES OR OPEN SORES? :NO ARE YOU ALLERGIC TO IV DYE? :YES NOTES HX OF THROAT SWELLING WITH CT DYE ARE YOU DIABETIC? :NO ANY NEW PROBLEMS WITH YOUR MEDICATIONS? :NO HAVE YOU RECEIVED A VACCINE IN THE PAST 30 DAYS? :NO DO YOU PLAN TO RECEIVE A VACCINE IN THE NEXT 21 DAYS? :YES IF SO WHAT VACCINE AND WHEN? FLU VACCINE 09/21 DO YOU NEED ANY PRESCRIPTION? :NO DO YOU TAKE ANY IMMUNOSUPPRESSIVE MEDICATIONS? :NO IS THERE A CHANCE YOU COULD BE ? :NO ARE YOU BREAST FEEDING? :NO CURRENT MEDICATIONS TAKING VENTOLIN HFA 108 (90 BASE) MCG/ACT AEROSOL SOLUTION 2 PUFFS NEEDED INHALATION EVERY 4 HRS TAKING INDERAL 20 MG TABLET PO BID TAKING PROTONIX 40 MG TABLET DELAYED RELEASE 1 TABLET ORALLY BID TAKING NARATRIPTAN HCL 2.5 MG TABLET 1 TABLET NEEDED ONE TIME ORALLY ONCE A DAY TAKING LYRICA 100 MG CAPSULE 100 MG IN AM, 200 MG IN PM ORALLY TAKING LORATADINE 10 MG TABLET 1 TABLET ORALLY ONCE A DAY TAKING HYDROCODONE-ACETAMINOPHEN 10-325 MG TABLET 1 TABLET NEEDED ORALLY 3 X/DAY NEEDED TAKING ARNUITY ELLIPTA 200 MCG/ACT AEROSOL POWDER BREATH ACTIVATED 1 PUFF INHALATION ONCE A DAY TAKING EMGALITY 120 MG/ML SOLUTION AUTO-INJECTOR DIRECTED SUBCUTANEOUS TAKING SOMA 350 MG TABLET 1 TABLET NEEDED ORALLY THREE TIMES A DAY NOT-TAKING TOPAMAX 100 100MG TABLET 100 MG IN AM, 150 MG AT NIGHT ORAL TWICE DAILY NOT-TAKING TESSALON PERLES 100 MG CAPSULE 1 CAP ORALLY THREE TIMES DAILY NOT-TAKING VENLAFAXINE HCL ER 75 MG CAPSULE EXTENDED RELEASE 24 HOUR 1 CAPSULE WITH FOOD ORALLY ONCE A DAY MEDICATION LIST REVIEWED AND RECONCILED WITH THE PATIENT PAST MEDICAL HISTORY FIBROMYALGIA BIPOLAR HIGH CHOLESTEROL VIT D DEFICIENCY MIGRANE GERD SINUSITIS HEMORRHOIDS ASTHMA CHRONIC PAIN PTSD LOW BACK PAIN ALLERGIES LATEX: HIVES - ALLERGY IV CONTRAST DYE: HIVES - ALLERGY STRAWBERRIES: THROAT CLOSES - ALLERGY PINEAPPLE: THROAT CLOSES - ALLERGY SEASONAL: SINUS CONGESTION - ALLERGY CYMBALTA: DIARRHEA - SIDE EFFECTS LIDOCAINE: ANGIOEDEMA - ALLERGY DEXAMETHASONE: ANGIOEDEMA - ALLERGY SURGICAL HISTORY RIGHT ANKLE SURGERY 2016 HYSTERECTOMY 2015 NECK SURGERY 11/2018 FAMILY HISTORY FATHER: FATHER- LUNG CANCER BROTHER HAS LUPUS AND GRAVES DISEASE. SOCIAL HISTORY GENERAL: TOBACCO USE ARE YOU A:CURRENT SMOKER ARE YOU INTERESTED IN QUITTING?THINKING ABOUT QUITTING HAS CUT DOWN COUNSELED THE PATIENT ON SMOKING CESSATION, EDUCATION [id number]/03/2019 HOW MANY CIGARETTES A DAY DO YOU SMOKE?5 OR LESS HOW SOON AFTER YOU WAKE UP DO YOU SMOKE YOUR FIRST CIGARETTE?31-60 MIN HOW OFTEN DO YOU SMOKE CIGARETTES?EVERY DAY PATIENT COUNSELED ON THE DANGERS OF TOBACCO USE AND URGED TO QUIT:10/25/2019 LATEX QUESTIONNAIRE LATEX ALLERGY : HAVE YOU EVER DEVELOPED ANY TYPE OF REACTION AFTER HANDLING LATEX PRODUCTS SUCH RUBBER GLOVES, CONDOMS, DIAPHRAGMS, BALLOONS, SOCKS, OR UNDERWEAR?YES DATE ASKED : 09/17/2020 PATIENT HAS ACTIVE LATEX ALLERGY. ALCOHOL SCREENING DID YOU HAVE A DRINK CONTAINING ALCOHOL IN THE PAST YEAR?NO POINTS0 INTERPRETATIONNEGATIVE RECREATIONAL DRUG USE DRUG USE?NO CAFFEINE CAFFEINE USE?YES HOW OFTEN AND HOW MUCH? LOTS DAILY UATSDIN [id number] NONE LANGUAGE LANGUAGES SPOKEN:HEBREW LEARNING BARRIERS / SPECIAL NEEDS BARRIERS TO LEARNING?NO HEARING IMPAIRED?NO VISION IMPAIRED?YES :CORRECTIVE LENSES COGNITIVELY IMPAIRED?YES :LEARNING DISABILITY READINESS TO LEARN?YES LEARNING PREFERENCES?NO LEARNING CAPABILITIES PRESENT?YES EMOTIONAL BARRIERS?NO SPECIAL DEVICES?NO DISEASE CONTROL INSPECTOR NEEDED?NO DOMESTIC VIOLENCE DO YOU FEEL SAFE IN YOUR ENVIRONMENT?YES PAIN CLINIC PFS, CLERGY, PUBLIC HEALTH REFERRALS PFS REFERRAL NEEDED?NO CLERGY REFERRAL NEEDED?NO PUBLIC HEALTH REFERRAL NEEDED?NO HAS THE PATIENT BEEN EDUCATED REGARDING HIS/HER PLAN OF CARE?YES HAS THE PATIENT BEEN EDUCATED REGARDING PAIN, THE RISK FOR PAIN, THE IMPORTANCE OF EFFECTIVE PAIN MANAGEMENT, AND THE PAIN ASSESSMENT PROCESS?YES ADVANCE DIRECTIVE ADVANCE DIRECTIVE DISCUSSED WITH PATIENT:YES 09/17/20 PT DOES NOT HAVE ANY ADVANCED DIRECTIVES AND SHE DECLINES HCP INFORMATION AT THIS TIME. AD REVIEWED WITH PATIENT 06/23/19 1332 JSREVIEWED WITH PT 08/30/19 0948 [id number] PRE-SCREENING CALL COMPLETED. PT NOT FEELING WELL AT TIME OF CALL. VOICE HOARSE WITH HARSH COUGH. SHE STATED SHE HAD BEEN FIGHTING BEING SICK SINCE BEFORE AND THAT SHE JUST COMPETED AN ANTIBIOTIC ON 10/23/19. SHE WAS ADVISED TO CALL AND RESCHEDULE PROCEDURE APPT. IF NOT FEELING BETTER BY FRI. SHE VERBALIZED UNDERSTANDING. AD. HOSPITALIZATION/MAJOR DIAGNOSTIC PROCEDURE SURGERY MENTAL HEALTH MULTIPLE TIMES REVIEW OF SYSTEMS CONSTITUTIONAL: ANY RECENT FEVER NO . CHILLS NO . WEIGHT CHANGE OF UNKNOWN REASONS NO . GASTROENTEROLOGY: NEW UNEXPLAINABLE CHANGES IN BOWEL CONTROL NO . CONSTIPATION NO . GENITOURINARY: ANY NEW CHANGE IN BLADDER CONTROL? NO . NEUROLOGY: NEW ONSET DIZZINESS OR NEUROLOGICAL CHANGES NOT MENTIONED NO . NEW NUMBNESS OR PAIN PATTERNS NOT MENTIONED AND PERTINENT TO TODAY'S VISIT NO . CARDIOLOGY: NEW CHEST PRESSURE NO . NEW CHEST PAIN NO . RESPIRATORY: UNEXPLAINABLE COUGH NO . NEW SHORTNESS OF BREATH NO . VITAL SIGNS WT 232 LBS, HT 62 IN, BMI 42.43 INDEX, BP 132/73 MM HG, HR 92 /MIN, RR 18 /MIN, TEMP 99.1 F, OXYGEN SAT % 96%, SAFE IN ENV? (Y/N) YES, NA INITIALS SC 11:27, REVIEWED BY: SHAINA. EXAMINATION GENERAL EXAMINATION: GENERALNO ACUTE DISTRESS, WELL NOURISHED AND HYDRATED. PSYCHAPPROPRIATE MOOD AND AFFECT . LUNGS:CLEAR TO AUSCULTATION BILATERALLY, NO WHEEZES, RHONCHI, RALES. HEART:NO MURMURS, REGULAR RATE AND RHYTHM. ASSESSMENTS INTERVERTEBRAL DISC DISORDER WITH RADICULOPATHY OF LUMBAR REGION - M51.16 (PRIMARY) TREATMENT INTERVERTEBRAL DISC DISORDER WITH RADICULOPATHY OF LUMBAR REGION CLINICAL NOTES: 35-YEAR-OLD FEMALE IN FOR CHRONIC PAIN FOLLOW-UP. GIVEN PRESENTING SYMPTOMS RECOMMEND FOLLOW-UP IN 2 MONTHS SO WE CAN REVIEW PROGRESS WITH PT AND ALLERGY TESTING AT THAT TIME. PATIENT HAS EXPRESSED UNDERSTANDING OF AND WAS IN AGREEMENT WITH TREATMENT PLAN. GIVEN TIME TO ASK QUESTIONS AND EXPRESS CONCERNS. REFERRAL TO:PHYSICAL THERAPY [facility] REASON:STRENGTHENING AND STRETCHING PROCEDURE CODES FA211 ESTABILISHED PATIENT [facility] CHARGE DISPOSITION & COMMUNICATION FOLLOW UP 2 MONTHS (REASON: BACK PAIN, PT FOLLOW-UP) ELECTRONICALLY SIGNED BY GANGA MILLAN ON 09/18/2020 AT 09:11 AM EDT DISCLAIMER : THIS IS A VISIT SUMMARY EXTRACTED FROM THE [email or web address] CHART. IT IS NOT A COPY OF THE [email or web address] PROGRESS NOTE. JEREL
== END ==
LOC: M PAIN 10:45
PROVIDERS: ATTEND Family Medicine
DX: M51.16 Intervertebral disc disorders with radiculopathy, lumbar region (principal); M79.7 Fibromyalgia; F31.9 Bipolar disorder, unspecified; E78.00 Pure hypercholesterolemia, unspecified; E55.9 Vitamin D deficiency, unspecified; G43.909 Migraine, unspecified, not intractable, without status migrainosus; K21.9 Gastro-esophageal reflux disease without esophagitis; J45.909 Unspecified asthma, uncomplicated; G89.29 Other chronic pain; F43.10 Post-traumatic stress disorder, unspecified; F17.210 Nicotine dependence, cigarettes, uncomplicated; Z79.891 Long term (current) use of opiate analgesic; Z79.899 Other long term (current) drug therapy; Z91.040 Latex allergy status; Z91.018 Allergy to other foods; Z91.041 Radiographic dye allergy status; Z88.8 Allergy status to other drugs, medicaments and biological substances

== ENCOUNTER → 2020-09-21 | Outpatient (REF) | payer MEDICARE, MEDICAID ==
[2020-09-21 17:16] LABS: BASO % 0.2 % (0.0-1.0); EOS # 0.1 10^3/uL (0.0-0.5); EOS % 0.6 % (0.0-3.0); HEMATOCRIT 41.1 % (36.0-47.0); HEMOGLOBIN 13.5 g/dl (12.0-15.5); LYMPH # 3.2 10^3/uL (1.5-5.0); LYMPH % 22.4 % (24.0-44.0); MEAN CORPUSCULAR HGB CONC 32.8 g/dl (32.0-36.5); MEAN CORPUSCULAR VOLUME 97.4 fl (80.0-96.0); MONO # 1.2 10^3/uL (0.0-0.8); MONO % 8.5 % (0.0-5.0); NEUTROPHILS # 9.6 10^3/uL (1.5-8.5); NEUTROPHILS % 67.6 % (36.0-66.0); PLATELET COUNT, AUTOMATED 315 10^3/uL (150-450); RED BLOOD COUNT 4.22 10^6/uL (4.00-5.40); WHITE BLOOD COUNT 14.2 10^3/uL (4.0-10.0)
[2020-09-21 17:50] LABS: ALT/SGPT 43 U/L (12-78); BILIRUBIN,TOTAL 0.1 MG/DL (0.2-1.0); BLOOD UREA NITROGEN 11 MG/DL (7-18); CALCIUM LEVEL 8.6 MG/DL (8.5-10.1); CARBON DIOXIDE LEVEL 24 MEQ/L (21-32); CHLORIDE LEVEL 111 MEQ/L (98-107); CREATININE FOR GFR 0.85 MG/DL (0.55-1.30); GLOMERULAR FILTRATION RATE > 60.0 (>60); GLUCOSE, FASTING 76 MG/DL (70-100); POTASSIUM SERUM 4.4 MEQ/L (3.5-5.1); SODIUM LEVEL 143 MEQ/L (136-145); TRIGLYCERIDES LEVEL 58 MG/DL (<150)
[2020-09-21 17:51] LABS: ALBUMIN 3.5 GM/DL (3.2-5.2); CHOLESTEROL LEVEL 213 MG/DL (<200); CHOLESTEROL RISK RATIO 3.672 (<5); HDL CHOLESTEROL 58 MG/DL (>40); LDL CHOLESTEROL 143 MG/DL (<100); NON-HDL-C 155 MG/DL; THYROID STIMULATING HORMONE 0.545 uIU/ML (0.358-3.740); TOTAL PROTEIN 6.8 GM/DL (6.4-8.2)
== END ==
LOC: M LAB REF 15:39
PROVIDERS: ATTEND Physician Assistant
DX: E78.5 Hyperlipidemia, unspecified (principal); K21.9 Gastro-esophageal reflux disease without esophagitis; F32.9 Major depressive disorder, single episode, unspecified

== ENCOUNTER → 2020-11-30 | Outpatient (CLI) | payer MEDICARE, MEDICAID ==
[~2020-11-30] MED LIST changes: +READI-CAT 2 As Ordered ONE
--- NOTE | 2020-11-30 14:46 | REP ---
INDICATION: EPIGASTRIC PAIN COMPARISON: 02/08/2019 TECHNIQUE: Axial noncontrast images from the lung bases to the pubic symphysis with coronal and sagittal reformations. This CT examination was performed using the following dose reduction techniques: Automated exposure control, adjustment of mA and/or kv according to the patient's size, and use of iterative reconstruction technique. FINDINGS: Lung bases are clear. Visualized heart and pericardium normal. Liver, spleen, pancreas, gallbladder, bilateral adrenal glands and kidneys are normal. The enteric system is unremarkable and without obstruction or acute inflammatory process. Normal terminal ileum and appendix identified in the right lower quadrant. Pelvis demonstrates normal bladder and evidence for prior hysterectomy. 2 mm phlebolith in the left hemipelvis should not be confused with ureteral stone. Small fat containing periumbilical hernia noted. No ascites. No free air. No adenopathy. No focal inflammatory stranding. Abdominal aorta without aneurysm. Musculoskeletal structures are intact and without acute osseous abnormality. IMPRESSION: No acute abdominopelvic pathology appreciated. <Electronically signed by Federico Hamlin > 11/30/20 [id number]
== END ==
LOC: M RAD 12:40
PROVIDERS: ATTEND Surgery
DX: R10.13 Epigastric pain (principal)

== ENCOUNTER → 2021-01-20 | Outpatient (CLI) | payer MEDICARE, MEDICAID ==
[~2021-01-20] MED LIST changes: +GABA-282 PO; -GABA-843 PO; -READI-CAT 2 As Ordered ONE
== END ==
LOC: M LABSMTC 08:40
PROVIDERS: ATTEND Anesthesiology
DX: Z01.812 Encounter for preprocedural laboratory examination (principal); Z20.822 Contact with and (suspected) exposure to COVID-19

== ENCOUNTER 2021-01-25 06:57 | Day surgery (SDC) | payer MEDICARE, MEDICAID ==
[~2021-01-25] VITALS: Ht 157.5 cm; Wt 110.7 kg
[~2021-01-25 06:57] MED LIST changes: +NS 1,000 ML IV ONE
[2021-01-25] MEDS ORDERED: MARIJUANA MEDICAL SL (07:22)
[2021-01-25] MEDS ORDERED: REQU5TAB PO (07:22)
[2021-01-25] MEDS ORDERED: OXYC10TA3 PO (07:22)
[2021-01-25] MEDS ORDERED: LIDOCAINE 2% 100MG/5ML SDV (FOR ANES.) As Ordered ONE (08:20)
[2021-01-25] MEDS ORDERED: propofoL 200 MG/20 ML VIAL As Ordered ONE ×2 (08:20→08:21)
--- NOTE | 2021-01-25 08:25 | ROOR ---
Patient Name: Ashley Chappell Procedure Date: 01/25/2021 8:10 AM Date of : 1985 Age: 35 Room: [facility] Gender: Female Note Status: Finalized Procedure: Upper GI endoscopy Indications: Epigastric abdominal pain, Heartburn Providers: Abdiaziz ISAAC MD Referring MD: Carolin Quevedo NP Requesting Provider: Medicines: Monitored Anesthesia Care Complications: No immediate complications. Procedure: Pre-Anesthesia Assessment: - The heart rate, respiratory rate, oxygen saturations, blood pressure, adequacy of pulmonary ventilation, and response to care were monitored throughout the procedure. The Endoscope was introduced through the mouth, and advanced to the second part of duodenum. The upper GI endoscopy was accomplished without difficulty. The patient tolerated the procedure well. Findings: The esophagus was normal. The stomach was normal. The examined duodenum was normal. Biopsies were taken with a cold forceps in the gastric antrum for Helicobacter pylori testing. Impression: - Normal esophagus. - Normal stomach. - Normal examined duodenum. - Biopsies were taken with a cold forceps for Helicobacter pylori testing. Recommendation: - Follow an antireflux regimen. - Eat smaller, more frequent meals throughout the day. - Low fat diet. - Liquid/soft foods are tolerated better than solid foods. - Low fiber/well cooked vegetables are tolerated better than high fiber/fibrous foods/raw vegetables. - Avoid medications that inhibit gastric/intestinal motility such as narcotic medications. - Telephone endoscopist for pathology results in 2 weeks. Procedure Code(s): --- Professional --- 59817, Esophagogastroduodenoscopy, flexible, transoral; with biopsy, single or multiple Diagnosis Code(s): --- Professional --- R12, Heartburn R10.13, Epigastric pain CPT copyright 2019 [employer]. All rights reserved. The codes documented in this report are preliminary and upon table inspector review may be revised to meet current compliance requirements. Abdiaziz Isaac MD Abdiaziz ISAAC MD 01/25/2021 8:26:17 AM Electronically signed by Abdiaziz ISAAC MD Number of Addenda: 0 Note Initiated On: 01/25/2021 8:10 AM Estimated Blood Loss: Estimated blood loss: none.
[2021-01-25 08:40] VITALS: BP 120/57
== END 2021-01-25 08:51 | disposition home or self-care (01) ==
LOC: M OPP 06:57
PROVIDERS: ATTEND Internal Medicine Gastroenterology
DX: R10.13 Epigastric pain (principal); I10 Essential (primary) hypertension; G47.30 Sleep apnea, unspecified; Z79.891 Long term (current) use of opiate analgesic; Z79.899 Other long term (current) drug therapy; Z88.8 Allergy status to other drugs, medicaments and biological substances; Z91.040 Latex allergy status; Z91.018 Allergy to other foods; Z91.041 Radiographic dye allergy status; Z91.048 Other nonmedicinal substance allergy status; F17.210 Nicotine dependence, cigarettes, uncomplicated

== ENCOUNTER → 2021-04-19 | Outpatient (REF) | payer MEDICARE, MEDICAID ==
[~2021-04-19] MED LIST changes: +MARIJUANA MEDICAL SL; -NS 1,000 ML IV ONE; +OXYC10TA3 PO; +REQU5TAB PO
== END ==
LOC: M LAB REF 15:58
PROVIDERS: ATTEND Physician Assistant
DX: Z12.72 Encounter for screening for malignant neoplasm of vagina (principal)

== ENCOUNTER → 2021-05-24 | Outpatient (CLI) | payer MEDICARE, MEDICAID ==
[~2021-05-24] MED LIST changes: -ARNU1INH3 IN; +ARNU1INH3 INH; +CYCL-707 PO; +FAMO20TA4 PO
== END ==
LOC: M LABSMTC 13:13
PROVIDERS: ATTEND Anesthesiology
DX: Z01.812 Encounter for preprocedural laboratory examination (principal); Z20.822 Contact with and (suspected) exposure to COVID-19

== ENCOUNTER 2021-05-29 11:34 | Day surgery (SDC) | payer MEDICAID, MEDICARE ==
[~2021-05-29] VITALS: Ht 157.5 cm; Wt 119.2 kg
[~2021-05-29 11:34] MED LIST changes: +BUPIVACAINE HCL 0.5% 30 ML VIAL As Ordered ONE; +LIDOCAINE 1% SDV 30ML VIAL As Ordered ONE; +LIDOCAINE 2% 100MG/5ML SDV (FOR ANES.) As Ordered ONE; +LR 1,000 ML IV ONE; +ceFAZolin SOD 2 GM in IV 1 EA IV ONE; +dexameTHASONE 4 MG/ML 1ML VIAL (J1100 PER 1MG) As Ordered ONE; +propofoL 500 MG/50 ML VIAL As Ordered ONE
[2021-05-29] MEDS ORDERED: MIDAZOLAM INJ 2MG/2ML VIAL (J2250 PER 1MG) As Ordered ONE (11:35)
[2021-05-29] MEDS ORDERED: fentaNYL 100 MCG/2 ML INJECTION (J3010) As Ordered ONE (11:35)
[2021-05-29] MEDS ORDERED: ACETAMINOPHEN 1000MG 100ML IV BTL (OFIRMEV) (J0131 PER 10MG) As Ordered ONE (14:18)
[2021-05-29] MEDS ORDERED: ONDANSETRON 4MG/2ML VIAL As Ordered ONE (14:18)
[2021-05-29] MEDS ORDERED: dexameTHASONE 4 MG/ML 1ML VIAL (J1100 PER 1MG) As Ordered ONE (14:18)
[2021-05-29] MEDS ORDERED: KETOROLAC 60MG 2ML VIAL As Ordered ONE (14:18)
[2021-05-29] MEDS ORDERED: propofoL 200 MG/20 ML VIAL As Ordered ONE (14:21)
[2021-05-29] MEDS ORDERED: OXYC1TAB23 PO (14:31)
--- NOTE | 2021-05-29 14:56 | RO ---
OPERATIVE NOTE DATE OF OPERATION: 05/29/2021 PREOPERATIVE DIAGNOSIS: Right foot chronic plantar fasciitis. POSTOPERATIVE DIAGNOSIS: Right foot chronic plantar fasciitis. PROCEDURE: Right endoscopic plantar fascia release. SURGEON: Pedro Prieto DPM NAPPER FIXER: None. ANESTHESIA: Monitored anesthesia care, preop injection of 20 mL of 1:1 mixture of 1% Lidocaine plain and 0.5% Marcaine plain. ESTIMATED BLOOD LOSS: Minimal. MATERIALS: 4-0 nylon. INJECTABLES: 1 mL Decadron 4 mg per mL. COMPLICATIONS: None. CONDITION: Stable. INDICATION: Ashley Golden is a 36-year-old female who presents to [facility] with complaints of pain to her right heel and arch. She presents today for surgical correction. Patient site and side were identified and marked in the preop holding area. Consent was reviewed and obtained. Risks, complications and alternatives to the procedure were explained to the patient in detail and all questions were answered. DESCRIPTION OF PROCEDURE: The patient was brought to the operating room and placed on the operating table in the supine position. Monitored anesthesia care was delivered by the anesthesia team. Preop injection of 20 mL of 1:1 mixture of 1% Lidocaine plain and 0.5% Marcaine plain were injected into the right foot. The right foot was prepped and draped in normal sterile fashion. Tourniquet was applied to the right ankle and inflated at 250 mmHg. Medial incision was made at the medial aspect of the heel and arch and carried through with #15 blade. The inferior margin of the plantar fascia was identified with hemostat and trocar and cannula were inserted. A lateral portal was created with #15 blade at the lateral aspect of the heel. Trocar was removed. Leaving the cannula in place the camera was inserted through the lateral portal and the plantar fascia was visualized. Using the triangle blade the plantar fascia was released approximately fdc leaving the lateral half intact. Instruments were removed. The incision was repaired with 4-0 nylon. Sterile dressings were applied. Tourniquet was deflated. The patient was brought to PACU with vital signs stable and neurovascular status intact. She will be weightbearing as tolerated and follow up in the office in two days.
[2021-05-29 15:00] VITALS: BP 123/78
== END 2021-05-29 15:07 | disposition home or self-care (01) ==
LOC: M SDC 11:34
PROVIDERS: ATTEND Podiatrist Foot & Ankle Surgery
DX: M72.2 Plantar fascial fibromatosis (principal); K21.9 Gastro-esophageal reflux disease without esophagitis; M79.7 Fibromyalgia; J45.909 Unspecified asthma, uncomplicated; G43.909 Migraine, unspecified, not intractable, without status migrainosus; G47.30 Sleep apnea, unspecified; F43.10 Post-traumatic stress disorder, unspecified; F17.218 Nicotine dependence, cigarettes, with other nicotine-induced disorders; F15.11 Other stimulant abuse, in remission; F41.9 Anxiety disorder, unspecified; F31.9 Bipolar disorder, unspecified; Z91.041 Radiographic dye allergy status; Z91.040 Latex allergy status; Z91.018 Allergy to other foods; Z79.899 Other long term (current) drug therapy; Z88.8 Allergy status to other drugs, medicaments and biological substances
CPT/HCPCS: 29893; J0131; J0690; J1100; J1885; J2250; J2405; J3010

== ENCOUNTER 2021-07-01 20:58 | Emergency (ER) | payer MEDICARE ==
[~2021-07-01] VITALS: Ht 157.5 cm; Wt 119.6 kg
[2021-07-01 20:58] VITALS: BP 138/90
[~2021-07-01 20:58] MED LIST changes: -BUPIVACAINE HCL 0.5% 30 ML VIAL As Ordered ONE; -LIDOCAINE 1% SDV 30ML VIAL As Ordered ONE; -LIDOCAINE 2% 100MG/5ML SDV (FOR ANES.) As Ordered ONE; -LR 1,000 ML IV ONE; -ceFAZolin SOD 2 GM in IV 1 EA IV ONE; -dexameTHASONE 4 MG/ML 1ML VIAL (J1100 PER 1MG) As Ordered ONE; -propofoL 500 MG/50 ML VIAL As Ordered ONE
== END 2021-07-02 00:13 | disposition left against medical advice (07) ==
LOC: M ED 20:58
DX: Z53.29 Procedure and treatment not carried out because of patient's decision for other reasons (principal)

== ENCOUNTER → 2021-11-13 | Outpatient (CLI) | payer MEDICARE, OTHER ==
--- NOTE | 2021-11-13 10:38 | REP ---
INDICATION: SPINAL STENOSIS, CERVICAL REGION. COMPARISON: None. TECHNIQUE: AP, lateral, swimmer's and open-mouth views of the cervical spine FINDINGS: Prior anterior fixation. Alignment and lordosis maintained. No acute fracture/compression injury or subluxation. IMPRESSION: Prior fixation. <Electronically signed by Federico Hamlin > 11/13/21 2475
== END ==
LOC: M RAD 09:46
PROVIDERS: ATTEND Neurological Surgery
DX: M48.02 Spinal stenosis, cervical region (principal); M47.812 Spondylosis without myelopathy or radiculopathy, cervical region

== ENCOUNTER → 2022-01-06 | Outpatient (CLI) | payer MEDICARE, OTHER ==
[2022-01-06 21:07] LABS: BASO # 0.1 10^3/uL (0.0-0.2); BASO % 0.5 % (0.0-1.0); EOS # 0.4 10^3/uL (0.0-0.5); EOS % 2.4 % (0.0-3.0); HEMATOCRIT 44.9 % (36.0-47.0); HEMOGLOBIN 14.6 g/dl (12.0-15.5); LYMPH # 3.9 10^3/uL (1.5-5.0); LYMPH % 25.8 % (24.0-44.0); MEAN CORPUSCULAR HEMOGLOBIN 33.2 pg (27.0-33.0); MEAN CORPUSCULAR HGB CONC 32.5 g/dl (32.0-36.5); MONO # 1.5 10^3/uL (0.0-0.8); MONO % 9.6 % (2.0-8.0); NEUTROPHILS # 9.2 10^3/uL (1.5-8.5); NEUTROPHILS % 60.6 % (36.0-66.0); PLATELET COUNT, AUTOMATED 301 10^3/uL (150-450); WHITE BLOOD COUNT 15.2 10^3/uL (4.0-10.0)
== END ==
LOC: M WUC 15:31
PROVIDERS: ATTEND Physician Assistant
DX: J45.41 Moderate persistent asthma with (acute) exacerbation (principal)

== ENCOUNTER 2022-02-12 16:30 | Inpatient (IN) | payer MEDICARE, OTHER ==
[~2022-02-12] VITALS: Ht 154.9 cm; Wt 118.6 kg
[~2022-02-12 16:30] MED LIST changes: +GALC120S SC; -GALC120S SQ
[2022-02-12 18:31] LABS: HEMATOCRIT 41.7 % (36.0-47.0); HEMOGLOBIN 14.1 g/dl (12.0-15.5); MEAN CORPUSCULAR HEMOGLOBIN 33.5 pg (27.0-33.0); MEAN CORPUSCULAR HGB CONC 33.8 g/dl (32.0-36.5); PLATELET COUNT, AUTOMATED 250 10^3/uL (150-450); RED BLOOD COUNT 4.21 10^6/uL (4.00-5.40); WHITE BLOOD COUNT 11.3 10^3/uL (4.0-10.0)
[2022-02-12 19:01] LABS: HCG, SERUM QUALITATIVE NEGATIVE (NEGATIVE)
[2022-02-12 19:06] LABS: ACETAMINOPHEN LEVEL < 2.0 UG/ML (10.0-30.0); ALBUMIN 3.5 GM/DL (3.2-5.2); ALT/SGPT 101 U/L (12-78); BILIRUBIN,DIRECT < 0.1 MG/DL (0.0-0.2); BILIRUBIN,TOTAL 0.2 MG/DL (0.2-1.0); BLOOD UREA NITROGEN 10 MG/DL (7-18); CARBON DIOXIDE LEVEL 28 MEQ/L (21-32); CHLORIDE LEVEL 112 MEQ/L (98-107); CREATININE FOR GFR 1.09 MG/DL (0.55-1.30); ETHYL ALCOHOL (ETHANOL) < 0.003 % (0.000-0.010); GLOMERULAR FILTRATION RATE > 60.0 (>60); GLUCOSE, FASTING 100 MG/DL (70-100); SALICYLATE LEVEL 4.5 MG/DL (5.0-30.0); SODIUM LEVEL 144 MEQ/L (136-145); THYROID STIMULATING HORMONE 0.756 uIU/ML (0.358-3.740); TOTAL PROTEIN 6.7 GM/DL (6.4-8.2)
[2022-02-12 19:56] LABS: RSV AMPLIFICATION NEGATIVE (NEGATIVE)
[2022-02-12 20:06] LABS: AMPHETAMINES LEVEL URINE NEGATIVE (NEGATIVE); BARBITURATES URINE NEGATIVE (NEGATIVE); BENZODIAZEPINES URINE POSITIVE (NEGATIVE); CANNABINOIDS URINE NEGATIVE (NEGATIVE); COCAINE METABOLITE URINE NEGATIVE (NEGATIVE); METHADONE URINE NEGATIVE (NEGATIVE); OPIATES URINE POSITIVE (NEGATIVE); PHENCYCLIDINE URINE NEGATIVE (NEGATIVE)
[2022-02-12] MEDS ORDERED: FLUO20CA22 PO (22:38)
[2022-02-12] MEDS ORDERED: ROPI0.5T3 PO (22:38)
[2022-02-12] MEDS ORDERED: CARI1TAB7 PO (22:38)
[2022-02-12] MEDS ORDERED: PREG100CA PO (22:38)
[2022-02-12] MEDS ORDERED: ARNU1INH3 INH (22:38)
[2022-02-12] MEDS ORDERED: ATIV1TAB10 PO (22:38)
[2022-02-12] MEDS ORDERED: PREG100C PO (22:38)
[2022-02-12] MEDS ORDERED: HOME MED LIST COMPLETE! XX SCH (22:40)
[2022-02-13] MEDS ORDERED: FAMOTIDINE 20 MG TAB PO ONE (02:55)
[2022-02-13] MEDS ORDERED: PREGABALIN 100 MG CAP (LYRICA) PO ONE ×2 (02:55→21:30)
[2022-02-13] MEDS ORDERED: PANTOPRAZOLE 40MG TAB (PROTONIX) PO ONE (02:55)
[2022-02-13] MEDS ORDERED: carisoprodoL 350 MG TAB PO ONE (02:55)
[2022-02-13] MEDS ORDERED: LORazepam 0.5 MG TAB PO SCH (07:50)
[2022-02-13] MEDS ORDERED: LORazepam 0.5 MG TAB PO PRN (08:21)
[2022-02-13] MEDS ORDERED: ALBUTEROL 90 MCG/ACT 8GM HFA INHALER INH PRN (09:00)
[2022-02-13] MEDS: FLUoxetine 20 MG CAP PO SCH (11:23)
[2022-02-13] MEDS: FAMOTIDINE 20 MG TAB PO SCH ×2 (11:23→21:38)
[2022-02-13] MEDS: PANTOPRAZOLE 40MG TAB (PROTONIX) PO SCH ×2 (11:23→21:40)
[2022-02-13] MEDS: PREGABALIN 100 MG CAP (LYRICA) PO SCH (11:23)
[2022-02-13] MEDS ORDERED: OXYC10TA3 PO (11:35)
[2022-02-13] MEDS ORDERED: PERCOCET 5MG/325MG TAB PO ONE (14:05)
[2022-02-13] MEDS: carisoprodoL 350 MG TAB PO PRN (21:38)
[2022-02-13] MEDS: FLUTICASONE HFA 44 MCG 10.6GM INHALER (FLOVENT) INH SCH (21:42)
[2022-02-14] MEDS: FLUTICASONE HFA 44 MCG 10.6GM INHALER (FLOVENT) INH SCH (08:00)
[2022-02-14] MEDS ORDERED: FLUTICASONE HFA 44 MCG 10.6GM INHALER (FLOVENT) INH SCH (09:00)
[2022-02-14] MEDS: PANTOPRAZOLE 40MG TAB (PROTONIX) PO SCH ×2 (09:04→20:46)
[2022-02-14] MEDS: FLUoxetine 20 MG CAP PO SCH (09:05)
[2022-02-14] MEDS: FAMOTIDINE 20 MG TAB PO SCH ×2 (09:05→20:46)
[2022-02-14] MEDS: PREGABALIN 100 MG CAP (LYRICA) PO SCH ×2 (09:05→20:45)
[2022-02-14] MEDS: carisoprodoL 350 MG TAB PO PRN ×2 (09:07→20:46)
[2022-02-14] MEDS ORDERED: MOM 30ML SUSPENSION UDC PO PRN (14:30)
[2022-02-14] MEDS ORDERED: MAALOX 30 ML SUSP *UDC PO PRN (14:30)
[2022-02-14] MEDS ORDERED: ACETAMINOPHEN TAB 650MG DOSE (2X325MG) PO PRN (14:30)
[2022-02-14] MEDS ORDERED: ALBUTEROL 90 MCG/ACT 8GM HFA INHALER INH PRN (15:05)
[2022-02-14] MEDS: NICOTINE 21MG/24HR 1 EA TRANSDERMAL TD SCH (16:51)
[2022-02-14 17:23] VITALS: BP 135/89
[2022-02-14] MEDS ORDERED: RIZATRIPTAN BENZOATE 10 MG TAB PO PRN (18:55)
[2022-02-14] MEDS: traZODone 50 MG TAB PO PRN (20:46)
[2022-02-14] MEDS: rOPINIRole 0.25 MG TAB(REQUIP) PO SCH (20:46)
[2022-02-15 06:47] VITALS: BP 123/62
[2022-02-15] MEDS: FAMOTIDINE 20 MG TAB PO SCH (08:49)
[2022-02-15] MEDS: PREGABALIN 100 MG CAP (LYRICA) PO SCH ×2 (08:51→22:19)
[2022-02-15] MEDS: PANTOPRAZOLE 40MG TAB (PROTONIX) PO SCH ×2 (08:51→22:20)
[2022-02-15] MEDS: FLUoxetine 20 MG CAP PO SCH (08:51)
[2022-02-15] MEDS: NICOTINE 21MG/24HR 1 EA TRANSDERMAL TD SCH (09:04)
[2022-02-15] MEDS: FLUTICASONE HFA 44 MCG 10.6GM INHALER (FLOVENT) INH SCH (09:57)
[2022-02-15] MEDS: carisoprodoL 350 MG TAB PO PRN ×2 (10:04→22:21)
[2022-02-15] MEDS: traZODone 50 MG TAB PO PRN (22:21)
[2022-02-15] MEDS: rOPINIRole 0.25 MG TAB(REQUIP) PO SCH (22:21)
[2022-02-16 07:01] VITALS: BP 108/71
[2022-02-16] MEDS: PREGABALIN 100 MG CAP (LYRICA) PO SCH ×2 (08:49→20:55)
[2022-02-16] MEDS: FLUoxetine 20 MG CAP PO SCH (08:49)
[2022-02-16] MEDS: NICOTINE 21MG/24HR 1 EA TRANSDERMAL TD SCH (08:49)
[2022-02-16] MEDS: FLUTICASONE HFA 44 MCG 10.6GM INHALER (FLOVENT) INH SCH (08:49)
[2022-02-16] MEDS: PANTOPRAZOLE 40MG TAB (PROTONIX) PO SCH ×2 (08:49→20:55)
[2022-02-16] MEDS ORDERED: IBUPROFEN 400MG TAB PO SCH (15:00)
[2022-02-16] MEDS ORDERED: SUMAtriptan SUCCINATE 25 MG TAB PO PRN (15:05)
[2022-02-16] MEDS: IBUPROFEN 400MG TAB PO PRN (15:19)
[2022-02-16] MEDS: rOPINIRole 0.25 MG TAB(REQUIP) PO SCH (20:55)
[2022-02-16] MEDS: carisoprodoL 350 MG TAB PO PRN (20:55)
[2022-02-16 20:59] VITALS: BP 145/85
[2022-02-17 06:00] VITALS: BP 132/74
[2022-02-17 08:57] LABS: HEMATOCRIT 42.4 % (36.0-47.0); HEMOGLOBIN 14.3 g/dl (12.0-15.5); MEAN CORPUSCULAR HEMOGLOBIN 33.6 pg (27.0-33.0); MEAN CORPUSCULAR HGB CONC 33.7 g/dl (32.0-36.5); MEAN CORPUSCULAR VOLUME 99.8 fl (80.0-96.0); PLATELET COUNT, AUTOMATED 273 10^3/uL (150-450); RED BLOOD COUNT 4.25 10^6/uL (4.00-5.40); WHITE BLOOD COUNT 7.5 10^3/uL (4.0-10.0)
[2022-02-17] MEDS: NICOTINE 21MG/24HR 1 EA TRANSDERMAL TD SCH (09:00)
[2022-02-17] MEDS: FLUTICASONE HFA 44 MCG 10.6GM INHALER (FLOVENT) INH SCH (09:16)
[2022-02-17] MEDS: PREGABALIN 100 MG CAP (LYRICA) PO SCH ×2 (09:16→21:38)
[2022-02-17] MEDS: SERTRALINE HCL 50 MG TAB PO SCH (09:16)
[2022-02-17] MEDS: PANTOPRAZOLE 40MG TAB (PROTONIX) PO SCH ×2 (09:16→21:38)
[2022-02-17] MEDS: IBUPROFEN 400MG TAB PO PRN (09:16)
[2022-02-17 09:20] LABS: ALBUMIN 4.1 GM/DL (3.2-5.2); ALT/SGPT 130 U/L (12-78); BILIRUBIN,TOTAL 0.7 MG/DL (0.2-1.0); BLOOD UREA NITROGEN 16 MG/DL (7-18); CALCIUM LEVEL 9.4 MG/DL (8.5-10.1); CARBON DIOXIDE LEVEL 27 MEQ/L (21-32); CHLORIDE LEVEL 108 MEQ/L (98-107); CREATININE FOR GFR 1.07 MG/DL (0.55-1.30); GLOMERULAR FILTRATION RATE > 60.0 (>60); GLUCOSE, FASTING 133 MG/DL (70-100); MAGNESIUM LEVEL 2.1 MG/DL (1.8-2.4); PHOSPHORUS LEVEL 2.9 MG/DL (2.5-4.9); SODIUM LEVEL 141 MEQ/L (136-145); TOTAL PROTEIN 7.5 GM/DL (6.4-8.2)
[2022-02-17 16:28] VITALS: BP 142/75
[2022-02-17] MEDS: carisoprodoL 350 MG TAB PO PRN (21:37)
[2022-02-17] MEDS: rOPINIRole 0.25 MG TAB(REQUIP) PO SCH (21:37)
[2022-02-18 06:15] VITALS: BP 126/75
[2022-02-18] MEDS: NICOTINE 21MG/24HR 1 EA TRANSDERMAL TD SCH (09:00)
[2022-02-18] MEDS: PREGABALIN 100 MG CAP (LYRICA) PO SCH (09:24)
[2022-02-18] MEDS: PANTOPRAZOLE 40MG TAB (PROTONIX) PO SCH (09:24)
[2022-02-18] MEDS: FLUTICASONE HFA 44 MCG 10.6GM INHALER (FLOVENT) INH SCH (09:24)
[2022-02-18] MEDS: SERTRALINE HCL 50 MG TAB PO SCH (09:24)
[2022-02-18] MEDS ORDERED: NICO21PAT TD (15:30)
[2022-02-18] MEDS ORDERED: SERT50TA29 PO (15:30)
[2022-02-18 17:27] LABS: ALBUMIN 3.6 GM/DL (3.2-5.2); BILIRUBIN,TOTAL 0.2 MG/DL (0.2-1.0); CALCIUM LEVEL 8.8 MG/DL (8.5-10.1); CREATININE FOR GFR 1.1 MG/DL (0.55-1.30); GLOMERULAR FILTRATION RATE 59.5 (>60); POTASSIUM SERUM 3.9 MEQ/L (3.5-5.1); TOTAL PROTEIN 7.4 GM/DL (6.4-8.2)
== END 2022-02-18 17:42 | disposition home or self-care (01) | DRG 881 ==
LOC: M ED 16:30 → M ED INP 02-14 14:29 → M PSY 02-14 15:07
PROVIDERS: ADMIT Psychiatry & Neurology Psychiatry; ATTEND Psychiatry & Neurology Psychiatry
DX: F32.A Depression, unspecified (principal); F41.9 Anxiety disorder, unspecified; F60.3 Borderline personality disorder; F43.10 Post-traumatic stress disorder, unspecified; R45.850 Homicidal ideations; Z62.810 Personal history of physical and sexual abuse in childhood; Z91.411 Personal history of adult psychological abuse; Z63.0 Problems in relationship with spouse or partner; Z63.8 Other specified problems related to primary support group; F17.200 Nicotine dependence, unspecified, uncomplicated; Z79.899 Other long term (current) drug therapy; Z91.040 Latex allergy status; Z91.041 Radiographic dye allergy status; Z88.8 Allergy status to other drugs, medicaments and biological substances; Z91.018 Allergy to other foods; Z20.822 Contact with and (suspected) exposure to COVID-19

== ENCOUNTER → 2022-04-10 | Outpatient (CLI) | payer MEDICARE, OTHER ==
[~2022-04-10] MED LIST changes: +ALBU83IN INH; +ALPR0.5T3 PO; +ATIV1TAB10 PO; +CARI1TAB7 PO; +DOCU-153 PO; +FLUO20CA22 PO; +GNPTAB36 PO; +NICO21PAT TD; +PREG100C PO; +PREG100CA PO; +ROPI0.5T3 PO
== END ==
LOC: M EKG 16:51
PROVIDERS: ATTEND Physician Assistant
DX: G47.30 Sleep apnea, unspecified (principal); R94.31 Abnormal electrocardiogram [ECG] [EKG]

== ENCOUNTER → 2022-04-17 | Outpatient (CLI) | payer MEDICARE, OTHER | LOC: M LABSMTC 10:08 | PROVIDERS: ATTEND Anesthesiology | DX: Z01.818 Encounter for other preprocedural examination (principal); Z11.52 Encounter for screening for COVID-19 ==

== ENCOUNTER 2022-04-22 09:27 | Day surgery (SDC) | payer MEDICARE, OTHER ==
[~2022-04-22] VITALS: Ht 154.9 cm; Wt 119.9 kg
[~2022-04-22 09:27] MED LIST changes: +ALBU2.5V10 INH; -ALBU83IN INH
[2022-04-22] MEDS ORDERED: ceFAZolin SOD 2 GM in IV 1 EA IV ONE (09:50)
[2022-04-22] MEDS ORDERED: MIDAZOLAM INJ 2MG/2ML VIAL (J2250 PER 1MG) As Ordered ONE (09:52)
[2022-04-22] MEDS ORDERED: propofoL 200 MG/20 ML VIAL As Ordered ONE (09:53)
[2022-04-22] MEDS ORDERED: ONDANSETRON 4MG/2ML VIAL As Ordered ONE (09:53)
[2022-04-22] MEDS ORDERED: ROCURONIUM BROMIDE 50 MG/5 ML VIAL As Ordered ONE ×2 (09:53→11:38)
[2022-04-22] MEDS ORDERED: dexameTHASONE 4 MG/ML 1ML VIAL (J1100 PER 1MG) As Ordered ONE (09:53)
[2022-04-22] MEDS ORDERED: fentaNYL 100 MCG/2 ML INJECTION As Ordered ONE (09:53)
[2022-04-22] MEDS ORDERED: LIDOCAINE 2% 100MG/5ML SDV (FOR ANES.) As Ordered ONE (09:53)
[2022-04-22] MEDS ORDERED: ACETAMINOPHEN 1000MG 100ML IV BTL (OFIRMEV) (J0131 PER 10MG) As Ordered ONE (09:54)
[2022-04-22] MEDS ORDERED: LR 1,000 ML IV SCH ×2 (09:55→12:15)
[2022-04-22] MEDS ORDERED: INSULIN LISPRO (NovoLOG) PER UNIT SC PRN (09:55)
[2022-04-22] MEDS ORDERED: BUPIVACAINE/EPIN 0.25% 30 ML VIAL As Ordered ONE (10:30)
[2022-04-22] MEDS ORDERED: BUPIVACAINE LIPOSOME/PF 1.3% 20ML VIAL (13.3MG/ML)(EXPAREL) As Ordered ONE (10:34)
[2022-04-22] MEDS ORDERED: ceFAZolin SOD 1 GM in D5W MINI-BAG PLUS 50 ML IV ONE (10:35)
[2022-04-22] MEDS ORDERED: PHENYLephrine 500MCG 5ML (100MCG/ML) SYRINGE As Ordered ONE (11:38)
[2022-04-22] MEDS ORDERED: KETOROLAC 60MG 2ML VIAL As Ordered ONE (11:47)
[2022-04-22] MEDS ORDERED: SUGAMMADEX SODIUM 500 MG/5 ML VIAL (BRIDION) As Ordered ONE (11:48)
[2022-04-22] MEDS ORDERED: HYDROmorphone HCL 2MG/ML 1ML VIAL As Ordered ONE (12:01)
[2022-04-22] MEDS ORDERED: ONDANSETRON 4MG/2ML VIAL IV PRN (12:15)
[2022-04-22] MEDS ORDERED: ALBUTEROL SULFATE 2.5 MG/0.5 ML INH NEB SOLN INH ONE (12:15)
[2022-04-22] MEDS ORDERED: METOCLOPRAMIDE INJ 10MG/2ML VIAL (J2765 PER 1) IV PRN (12:15)
[2022-04-22] MEDS ORDERED: MORPHINE 2 MG/ML 1ML VIAL IV PRN (12:15)
[2022-04-22] MEDS ORDERED: NS 1,000 ML IV SCH (12:25)
[2022-04-22] MEDS ORDERED: oxyCODONE 5MG TAB PO PRN ×2 (12:25)
[2022-04-22] MEDS: fentaNYL 100 MCG/2 ML INJECTION IV PRN ×3 (12:34→13:19)
[2022-04-22 13:50] VITALS: BP 129/70
== END 2022-04-22 13:59 | disposition home or self-care (01) ==
LOC: M SDC 09:27
PROVIDERS: ATTEND Surgery
DX: K80.12 Calculus of gallbladder with acute and chronic cholecystitis without obstruction (principal); J45.909 Unspecified asthma, uncomplicated; K21.9 Gastro-esophageal reflux disease without esophagitis; F31.9 Bipolar disorder, unspecified; F33.9 Major depressive disorder, recurrent, unspecified; F41.9 Anxiety disorder, unspecified; F43.10 Post-traumatic stress disorder, unspecified; M19.90 Unspecified osteoarthritis, unspecified site; R06.83 Snoring; Z87.442 Personal history of urinary calculi; Z79.899 Other long term (current) drug therapy; Z88.8 Allergy status to other drugs, medicaments and biological substances; Z91.018 Allergy to other foods; Z91.040 Latex allergy status; Z91.041 Radiographic dye allergy status; F17.210 Nicotine dependence, cigarettes, uncomplicated
CPT/HCPCS: 47562; 88304; C9290; J0131; J0690; J1100; J1170; J1885; J2250; J2370; J2405; J3010

== ENCOUNTER 2022-08-30 20:03 | Emergency (ER) | payer MEDICARE ==
[~2022-08-30] VITALS: Ht 154.9 cm; Wt 120.5 kg
[~2022-08-30 20:03] MED LIST changes: -MAXA10TA14 PO; +RIZA10TA64 PO
[2022-08-30 21:30] VITALS: O2SAT 97
[2022-08-30 22:51] VITALS: BP 135/85
[2022-08-30] MEDS ORDERED: IBUPROFEN 800 MG TAB PO ONE (23:00)
== END 2022-08-30 22:53 | disposition home or self-care (01) ==
LOC: M ED 20:03
DX: U07.1 COVID-19 (principal); J45.909 Unspecified asthma, uncomplicated; F17.210 Nicotine dependence, cigarettes, uncomplicated; G43.909 Migraine, unspecified, not intractable, without status migrainosus; G89.29 Other chronic pain; Z90.49 Acquired absence of other specified parts of digestive tract; Z88.1 Allergy status to other antibiotic agents; Z91.048 Other nonmedicinal substance allergy status; Z91.041 Radiographic dye allergy status; Z91.040 Latex allergy status; Z91.018 Allergy to other foods; Z79.51 Long term (current) use of inhaled steroids; Z79.899 Other long term (current) drug therapy

== ENCOUNTER → 2022-10-29 | Outpatient (REF) | payer MEDICARE, MEDICAID ==
[2022-10-29 17:38] LABS: BASO # 0.1 10^3/uL (0.0-0.2); BASO % 0.4 % (0.0-1.0); EOS # 0.3 10^3/uL (0.0-0.5); EOS % 2.5 % (0.0-3.0); HEMATOCRIT 43.3 % (36.0-47.0); HEMOGLOBIN 14.2 g/dl (12.0-15.5); LYMPH # 3.9 10^3/uL (1.5-5.0); LYMPH % 29.4 % (24.0-44.0); MEAN CORPUSCULAR HEMOGLOBIN 32.3 pg (27.0-33.0); MEAN CORPUSCULAR HGB CONC 32.8 g/dl (32.0-36.5); MEAN CORPUSCULAR VOLUME 98.6 fl (80.0-96.0); MONO % 7.7 % (2.0-8.0); NEUTROPHILS % 59.3 % (36.0-66.0); PLATELET COUNT, AUTOMATED 298 10^3/uL (150-450); RED BLOOD COUNT 4.39 10^6/uL (4.00-5.40); WHITE BLOOD COUNT 13.4 10^3/uL (4.0-10.0)
[2022-10-29 18:01] LABS: ALBUMIN 3.7 G/DL (3.2-5.2); ALKALINE PHOSPHATASE 86 U/L (46-116); ALT/SGPT 65 U/L (7.0-40); AST/SGOT 42 U/L (<34); BILIRUBIN,TOTAL 0.3 MG/DL (0.3-1.2); BLOOD UREA NITROGEN 7 MG/DL (9-23); CALCIUM LEVEL 9.1 MG/DL (8.5-10.1); CARBON DIOXIDE LEVEL 22 MMOL/L (20-31); CHLORIDE LEVEL 107 MMOL/L (98-107); CHOLESTEROL LEVEL 214 MG/DL (<200); CHOLESTEROL RISK RATIO 4.64 (<5); CREATININE FOR GFR 0.84 MG/DL (0.55-1.30); GLOMERULAR FILTRATION RATE > 60.0 (>60); GLUCOSE, FASTING 86 MG/DL (60-100); HDL CHOLESTEROL 46.1 MG/DL (>40); LDL CHOLESTEROL 136.5 MG/DL (<100); NON-HDL-C 168 MG/DL; POTASSIUM SERUM 4.6 MMOL/L (3.5-5.1); SODIUM LEVEL 139 MMOL/L (136-145); TOTAL PROTEIN 6.9 G/DL (5.7-8.2); TRIGLYCERIDES LEVEL 157 MG/DL (<150)
== END ==
LOC: M LAB REF 16:39
PROVIDERS: ATTEND Physician Assistant
DX: E78.5 Hyperlipidemia, unspecified (principal); R74.01 Elevation of levels of liver transaminase levels; K76.0 Fatty (change of) liver, not elsewhere classified

== ENCOUNTER → 2022-11-03 | Outpatient (REF) | payer MEDICARE, MEDICAID ==
[2022-11-03 17:24] LABS: AMPHETAMINES URINE REFLEX NEGATIVE (NEGATIVE); BARBITURATES URINE REFLEX NEGATIVE (NEGATIVE); COCAINE METABOLITE URINE REFLE NEGATIVE (NEGATIVE); METHADONE URINE REFLEX NEGATIVE (NEGATIVE)
[2022-11-03 17:25] LABS: CANNABINOIDS URINE REFLEX NEGATIVE (NEGATIVE); OPIATES URINE REFLEX NEGATIVE (NEGATIVE); PHENCYCLIDINE URINE REFLEX NEGATIVE (NEGATIVE)
[2022-11-03 20:43] LABS: BENZODIAZEPINES URINE REFLEX PENDING CONFIRMATION (NEGATIVE)
== END ==
LOC: M LAB REF 16:14
PROVIDERS: ATTEND Family Medicine Addiction Medicine
DX: Z79.899 Other long term (current) drug therapy (principal)
CPT/HCPCS: 80307; G0480

== ENCOUNTER → 2022-11-05 | Outpatient (CLI) | payer MEDICAID, MEDICARE | LOC: M RAD 10:31 | PROVIDERS: ATTEND Neurological Surgery | DX: M47.22 Other spondylosis with radiculopathy, cervical region (principal); Z96.89 Presence of other specified functional implants; M25.78 Osteophyte, vertebrae; M99.61 Osseous and subluxation stenosis of intervertebral foramina of cervical region ==

== ENCOUNTER → 2022-11-12 | Outpatient (CLI) | payer MEDICARE ==
[2022-11-12 13:40] LABS: IRON (FE) 65 UG/DL (50-170); PERCENT SATURATION 21.3 % (13.2-45.0); TOTAL IRON BINDING CAPACITY 305 UG/DL (250-425)
[2022-11-12 14:00] LABS: HEPATITIS B SURFACE ANTIGEN NEGATIVE (NEGATIVE)
[2022-11-12 14:21] LABS: HEPATITIS B CORE ANTIBODY IGM NEGATIVE (NEGATIVE)
== END ==
LOC: M LAB 12:30
PROVIDERS: ATTEND Physician Assistant Medical
DX: R74.01 Elevation of levels of liver transaminase levels (principal)

== ENCOUNTER → 2022-11-28 | Outpatient (REF) | payer MEDICARE ==
[2022-11-28 17:28] LABS: BILIRUBIN,DIRECT < 0.1 MG/DL (<0.4)
[2022-11-28 17:29] LABS: ALBUMIN 3.4 G/DL (3.2-5.2); ALKALINE PHOSPHATASE 98 U/L (46-116); ALT/SGPT 87 U/L (7.0-40); AST/SGOT 63 U/L (<34); BILIRUBIN,TOTAL 0.2 MG/DL (0.3-1.2); CHOLESTEROL LEVEL 160 MG/DL (<200); CHOLESTEROL RISK RATIO 4.17 (<5); HDL CHOLESTEROL 38.3 MG/DL (>40); LDL CHOLESTEROL 90.9 MG/DL (<100); NON-HDL-C 122 MG/DL; TOTAL PROTEIN 6.7 G/DL (5.7-8.2); TRIGLYCERIDES LEVEL 154 MG/DL (<150)
== END ==
LOC: M LAB REF 16:19
PROVIDERS: ATTEND Physician Assistant
DX: E78.5 Hyperlipidemia, unspecified (principal)

== ENCOUNTER → 2023-01-15 | Outpatient (CLI) | payer MEDICARE | LOC: M WHC 08:35 | PROVIDERS: ATTEND Physician Assistant Medical | DX: R74.01 Elevation of levels of liver transaminase levels (principal); R10.11 Right upper quadrant pain; R10.31 Right lower quadrant pain; Z90.49 Acquired absence of other specified parts of digestive tract; R16.0 Hepatomegaly, not elsewhere classified; K76.0 Fatty (change of) liver, not elsewhere classified ==

== ENCOUNTER → 2023-02-06 | Outpatient (CLI) | payer MEDICAID, MEDICARE ==
[~2023-02-06] MED LIST changes: +TOPI-254 PO; -TOPI50TA9 PO
== END ==
LOC: M PLAIMG 11:11
PROVIDERS: ATTEND Physician Assistant Medical
DX: R10.11 Right upper quadrant pain (principal); R74.01 Elevation of levels of liver transaminase levels; R11.10 Vomiting, unspecified

== ENCOUNTER → 2023-02-24 | Outpatient (CLI) | payer MEDICARE, MEDICAID ==
[2023-02-24 16:23] LABS: BASO # 0.1 10^3/uL (0.0-0.2); BASO % 0.6 % (0.0-1.0); EOS # 0.2 10^3/uL (0.0-0.5); EOS % 1.7 % (0.0-3.0); HEMATOCRIT 43.8 % (36.0-47.0); HEMOGLOBIN 14.9 g/dl (12.0-15.5); LYMPH # 3.6 10^3/uL (1.5-5.0); LYMPH % 32.2 % (24.0-44.0); MEAN CORPUSCULAR HEMOGLOBIN 32.6 pg (27.0-33.0); MEAN CORPUSCULAR VOLUME 95.8 fl (80.0-96.0); MONO # 0.9 10^3/uL (0.0-0.8); MONO % 7.9 % (2.0-8.0); NEUTROPHILS # 6.4 10^3/uL (1.5-8.5); NEUTROPHILS % 56.9 % (36.0-66.0); PLATELET COUNT, AUTOMATED 324 10^3/uL (150-450); RED BLOOD COUNT 4.57 10^6/uL (4.00-5.40); WHITE BLOOD COUNT 11.3 10^3/uL (4.0-10.0)
[2023-02-24 16:48] LABS: LIPASE 36 U/L (12-53)
[2023-02-24 16:50] LABS: AMYLASE 39 U/L (30-118)
[2023-02-24 16:57] LABS: ALBUMIN 3.6 G/DL (3.2-5.2); ALKALINE PHOSPHATASE 97 U/L (46-116); ALT/SGPT 63 U/L (7.0-40); AST/SGOT 50 U/L (<34); BILIRUBIN,TOTAL 0.3 MG/DL (0.3-1.2); BLOOD UREA NITROGEN 10 MG/DL (9-23); CALCIUM LEVEL 9.1 MG/DL (8.5-10.1); CARBON DIOXIDE LEVEL 22 MMOL/L (20-31); CHLORIDE LEVEL 108 MMOL/L (98-107); CREATININE FOR GFR 0.91 MG/DL (0.55-1.30); GLOMERULAR FILTRATION RATE > 60.0 (>60); GLUCOSE, FASTING 105 MG/DL (60-100); SODIUM LEVEL 139 MMOL/L (136-145)
== END ==
LOC: M LAB 15:24
PROVIDERS: ATTEND Physician Assistant Medical
DX: R11.10 Vomiting, unspecified (principal); R74.01 Elevation of levels of liver transaminase levels

== ENCOUNTER → 2023-05-06 | Outpatient (REF) | payer OTHER ==
[~2023-05-06] MED LIST changes: +LEVOTAB10 PO; +NORT25CA2 PO; +OXYC-517 PO; +SENN-186 PO
== END ==
LOC: M LAB REF 16:36
PROVIDERS: ATTEND Physician Assistant
DX: Z79.899 Other long term (current) drug therapy (principal)

== ENCOUNTER → 2023-06-04 | Outpatient (CLI) | payer MEDICARE ==
[~2023-06-04] MED LIST changes: -ROPI0.5T3 PO; +ROPI0.5T33 PO
== END ==
LOC: M PLARAD 13:09
PROVIDERS: ATTEND Physician Assistant
DX: M46.1 Sacroiliitis, not elsewhere classified (principal); M51.36 Other intervertebral disc degeneration, lumbar region; R20.2 Paresthesia of skin

== ENCOUNTER → 2023-07-03 | Outpatient (CLI) | payer MEDICARE | LOC: M RAD 14:57 | PROVIDERS: ATTEND Internal Medicine Pulmonary Disease | DX: R91.8 Other nonspecific abnormal finding of lung field (principal) ==

== ENCOUNTER → 2023-08-27 | Outpatient (CLI) | payer MEDICARE ==
[~2023-08-27] MED LIST changes: +BREO1INH3 INH; +BUPR2SUB SL; +LAMO25TA4 PO; +LIDOCAINE 1% MDV 20ML VIAL As Ordered ONE; +LORA-1041 PO; -LORA-674 PO; +ONDA4TAB6 PO; -PREG100C PO; +PREG100C2 PO; -PREG50CA2 PO; +PREG50CA3 PO
[2023-08-27 12:00] VITALS: TEMP 97.5
[2023-08-27 12:13] LABS: HEMATOCRIT 44.8 % (36.0-47.0); HEMOGLOBIN 15.4 g/dl (12.0-15.5); MEAN CORPUSCULAR HGB CONC 34.4 g/dl (32.0-36.5); MEAN CORPUSCULAR VOLUME 96.1 fl (80.0-96.0); PLATELET COUNT, AUTOMATED 321 10^3/uL (150-450); RED BLOOD COUNT 4.66 10^6/uL (4.00-5.40)
[2023-08-27 12:28] LABS: INR 0.98; PROTHROMBIN TIME 12.7 SECONDS (12.5-14.5)
[2023-08-27 14:45] VITALS: BP 134/68; O2SAT 97
== END ==
LOC: M IRPRO 11:28
PROVIDERS: ATTEND Physician Assistant Medical
DX: K76.0 Fatty (change of) liver, not elsewhere classified (principal); R74.01 Elevation of levels of liver transaminase levels; R10.11 Right upper quadrant pain

== ENCOUNTER → 2023-12-23 | Outpatient (REF) | payer MEDICARE ==
[~2023-12-23] MED LIST changes: -LIDOCAINE 1% MDV 20ML VIAL As Ordered ONE; +TOPI-21 PO; -TOPI-254 PO
[2023-12-23 16:53] LABS: ALBUMIN 3.4 G/DL (3.2-5.2); ALKALINE PHOSPHATASE 96 U/L (46-116); ALT/SGPT 56 U/L (7.0-40); AST/SGOT 43 U/L (<34); BILIRUBIN,TOTAL 0.3 MG/DL (0.3-1.2); BLOOD UREA NITROGEN 10 MG/DL (9-23); CALCIUM LEVEL 8.8 MG/DL (8.5-10.1); CARBON DIOXIDE LEVEL 23 MMOL/L (20-31); CHLORIDE LEVEL 107 MMOL/L (98-107); CHOLESTEROL LEVEL 237 MG/DL (<200); CHOLESTEROL RISK RATIO 5.22 (<5); CREATININE FOR GFR 0.76 MG/DL (0.55-1.30); GLOMERULAR FILTRATION RATE > 60.0 (>60); GLUCOSE, FASTING 124 MG/DL (60-100); HDL CHOLESTEROL 45.4 MG/DL (>40); LDL CHOLESTEROL 156.6 MG/DL (<100); NON-HDL-C 191.6 MG/DL; POTASSIUM SERUM 4.2 MMOL/L (3.5-5.1); SODIUM LEVEL 139 MMOL/L (136-145); TOTAL PROTEIN 6.9 G/DL (5.7-8.2); TRIGLYCERIDES LEVEL 175 MG/DL (<150)
[2023-12-23 16:55] LABS: HEMATOCRIT 43.1 % (36.0-47.0); HEMOGLOBIN 14.7 g/dl (12.0-15.5); MEAN CORPUSCULAR HEMOGLOBIN 33.2 pg (27.0-33.0); MEAN CORPUSCULAR HGB CONC 34.1 g/dl (32.0-36.5); MEAN CORPUSCULAR VOLUME 97.3 fl (80.0-96.0); PLATELET COUNT, AUTOMATED 303 10^3/uL (150-450); RED BLOOD COUNT 4.43 10^6/uL (4.00-5.40); WHITE BLOOD COUNT 9.7 10^3/uL (4.0-10.0)
== END ==
LOC: M LAB REF 16:24
PROVIDERS: ATTEND Physician Assistant
DX: Z13.1 Encounter for screening for diabetes mellitus (principal); Z68.41 Body mass index [BMI] 40.0-44.9, adult; Z13.220 Encounter for screening for lipoid disorders; Z79.899 Other long term (current) drug therapy

== ENCOUNTER → 2024-01-21 | Outpatient (REF) | payer MEDICARE, MEDICAID ==
[~2024-01-21] MED LIST changes: -DOCU-153 PO; +STOO100C30 PO
[2024-01-21 18:05] LABS: HEMOGLOBIN A1c 5.4 % (4.0-6.0)
[2024-01-21 18:15] LABS: ALBUMIN 3.3 G/DL (3.2-5.2); ALKALINE PHOSPHATASE 95 U/L (46-116); ALT/SGPT 40 U/L (7.0-40); AST/SGOT 27 U/L (<34); BILIRUBIN,DIRECT < 0.1 MG/DL (<0.4); BILIRUBIN,TOTAL 0.2 MG/DL (0.3-1.2); CHOLESTEROL LEVEL 193 MG/DL (<200); CHOLESTEROL RISK RATIO 5.01 (<5); HDL CHOLESTEROL 38.5 MG/DL (>40); LDL CHOLESTEROL 106.1 MG/DL (<100); NON-HDL-C 154.5 MG/DL; TOTAL PROTEIN 6.5 G/DL (5.7-8.2); TRIGLYCERIDES LEVEL 242 MG/DL (<150)
== END ==
LOC: M LAB REF 16:39
PROVIDERS: ATTEND Physician Assistant
DX: E78.5 Hyperlipidemia, unspecified (principal); R73.01 Impaired fasting glucose

== ENCOUNTER 2024-03-24 06:54 | Day surgery (SDC) | payer MEDICARE ==
[~2024-03-24] VITALS: Ht 154.9 cm; Wt 105.2 kg
[2024-03-24] MEDS: NS 1,000 ML IV ONE (06:00)
[~2024-03-24 06:54] MED LIST changes: +AMIT50TA PO; +LIDOCAINE 2% 100MG/5ML SDV (FOR ANES.) As Ordered ONE; +OXYC10TA12 PO; +propofoL 200 MG/20 ML VIAL As Ordered ONE
[2024-03-24] MEDS ORDERED: dexmedeTOMIDine (4MCG/ML)200MCG/50ML BTL (PRECEDEX) As Ordered ONE (07:23)
[2024-03-24 07:41] VITALS: TEMP 98
[2024-03-24 08:00] VITALS: BP 126/73; O2SAT 97
== END 2024-03-24 08:01 | disposition home or self-care (01) ==
LOC: M OPP 06:54
PROVIDERS: ATTEND Internal Medicine Gastroenterology
DX: R10.9 Unspecified abdominal pain (principal); K21.9 Gastro-esophageal reflux disease without esophagitis; J45.909 Unspecified asthma, uncomplicated; G47.30 Sleep apnea, unspecified; Z79.899 Other long term (current) drug therapy; Z79.891 Long term (current) use of opiate analgesic; Z79.51 Long term (current) use of inhaled steroids; Z91.040 Latex allergy status; Z91.041 Radiographic dye allergy status; Z88.8 Allergy status to other drugs, medicaments and biological substances; Z91.018 Allergy to other foods; Z90.711 Acquired absence of uterus with remaining cervical stump; F31.30 Bipolar disorder, current episode depressed, mild or moderate severity, unspecified; F17.200 Nicotine dependence, unspecified, uncomplicated

== ENCOUNTER → 2024-05-16 | Outpatient (REF) | payer MEDICARE ==
[~2024-05-16] MED LIST changes: +FLUO-365 PO; -FLUO20CA22 PO; -LIDOCAINE 2% 100MG/5ML SDV (FOR ANES.) As Ordered ONE; +ONDA-282 PO; -ONDA4TAB6 PO; -propofoL 200 MG/20 ML VIAL As Ordered ONE
[2024-05-16 18:11] LABS: ALBUMIN 3.3 G/DL (3.2-5.2); ALKALINE PHOSPHATASE 94 U/L (46-116); ALT/SGPT 150 U/L (7.0-40); AST/SGOT 126 U/L (<34); BILIRUBIN,TOTAL 0.4 MG/DL (0.3-1.2); BLOOD UREA NITROGEN < 5 MG/DL (9-23); CALCIUM LEVEL 8.6 MG/DL (8.5-10.1); CARBON DIOXIDE LEVEL 22 MMOL/L (20-31); CHLORIDE LEVEL 109 MMOL/L (98-107); CHOLESTEROL LEVEL 241 MG/DL (<200); CHOLESTEROL RISK RATIO 6.62 (<5); CREATININE FOR GFR 0.83 MG/DL (0.55-1.30); GLOMERULAR FILTRATION RATE > 60.0 (>60); GLUCOSE, FASTING 172 MG/DL (60-100); HDL CHOLESTEROL 36.4 MG/DL (>40); NON-HDL-C 204.6 MG/DL; POTASSIUM SERUM 4.5 MMOL/L (3.5-5.1); SODIUM LEVEL 139 MMOL/L (136-145); TOTAL PROTEIN 6.6 G/DL (5.7-8.2); TRIGLYCERIDES LEVEL 173 MG/DL (<150)
== END ==
LOC: M LAB REF 16:44
PROVIDERS: ATTEND Physician Assistant
DX: E78.5 Hyperlipidemia, unspecified (principal); E88.810 Metabolic syndrome

== ENCOUNTER → 2024-05-23 | Outpatient (REF) | payer MEDICARE ==
[~2024-05-23] MED LIST changes: +CLON1TAB8 PO
== END ==
LOC: M LAB REF 16:35
PROVIDERS: ATTEND Physician Assistant
DX: Z79.899 Other long term (current) drug therapy (principal)

== ENCOUNTER 2024-06-30 07:55 | Day surgery (SDC) | payer MEDICARE ==
[~2024-06-30] VITALS: Ht 152.4 cm; Wt 102.4 kg
[~2024-06-30 07:55] MED LIST changes: +ALPR1TAB3 PO; +AMIT75TA PO; +EMGA120I; +FAMO1TAB11 PO; +MAALSUS19 PO; +REXU1TAB2 PO; +SENN-83 PO
[2024-06-30] MEDS: NS 1,000 ML IV ONE (08:17)
[2024-06-30] MEDS ORDERED: AMIT75TA PO (08:40)
[2024-06-30] MEDS ORDERED: LIDOCAINE 2% 100MG/5ML SDV (FOR ANES.) As Ordered ONE (09:43)
[2024-06-30] MEDS ORDERED: propofoL 200 MG/20 ML VIAL As Ordered ONE (09:43)
[2024-06-30 09:56] VITALS: TEMP 96.4
[2024-06-30 10:12] VITALS: BP 116/63; O2SAT 98
== END 2024-06-30 10:30 | disposition home or self-care (01) ==
LOC: M OPP 07:55
PROVIDERS: ATTEND Internal Medicine Gastroenterology
DX: Z86.010 Personal history of colon polyps (principal); D12.3 Benign neoplasm of transverse colon; K64.8 Other hemorrhoids; K57.30 Diverticulosis of large intestine without perforation or abscess without bleeding; F17.200 Nicotine dependence, unspecified, uncomplicated; G47.30 Sleep apnea, unspecified; K76.0 Fatty (change of) liver, not elsewhere classified; J45.909 Unspecified asthma, uncomplicated; Z79.51 Long term (current) use of inhaled steroids; Z79.891 Long term (current) use of opiate analgesic; Z79.899 Other long term (current) drug therapy; Z88.8 Allergy status to other drugs, medicaments and biological substances; Z91.018 Allergy to other foods; Z91.040 Latex allergy status; Z91.041 Radiographic dye allergy status; Z91.048 Other nonmedicinal substance allergy status

== ENCOUNTER → 2024-07-05 | Outpatient (REF) | payer MEDICARE ==
[2024-07-05 18:26] LABS: ALBUMIN 3.5 G/DL (3.2-5.2); BILIRUBIN,DIRECT 0.1 MG/DL (<0.4); BILIRUBIN,TOTAL 0.3 MG/DL (0.3-1.2); CHOLESTEROL RISK RATIO 5.47 (<5); HDL CHOLESTEROL 39.6 MG/DL (>40); LDL CHOLESTEROL 144.8 MG/DL (<100); NON-HDL-C 177.4 MG/DL; TOTAL PROTEIN 6.7 G/DL (5.7-8.2)
== END ==
LOC: M LAB REF 16:20
PROVIDERS: ATTEND Physician Assistant
DX: Z79.891 Long term (current) use of opiate analgesic (principal); E78.5 Hyperlipidemia, unspecified